=== PATIENT | male | born 1975 | race American Indian/Alaskan Native ===

== ENCOUNTER 2020-05-22 09:37 | Inpatient (IN) | payer MEDICAID, OTHER, SELFPAY ==
--- NOTE | 2020-05-22 12:41 | Emergency Department Report ---
ED General Adult HPI - General Chief complaint: Medical Clearance Stated complaint: CATHETER INFECTION Time Seen by Provider: 05/22/20 11:42 Source: patient Mode of arrival: Ambulatory Limitations: No Limitations - History of Present Illness Initial comments: 44-year-old male with a past medical history of hypertension, obesity, end-stage renal disease on dialysis Wednesday, Wednesday, Wednesday presents to the hospital concerned that his right chest wall permacath might be infected. As per medical record review permacath was inserted by vascular surgeon Dr. Moore on March 05, 2020 for new onset renal failure requiring dialysis. Two days ago patient noticed purulent drainage, from the Vas-Cath insertion site. He received dialysis at that time without difficulty and was told to keep an eye on the site and monitor for chills/fever by the dialysis nurse. Patient states he is having mild intermittent chills without fever. He noted some mild purulent drainage yesterday but today just noticed bloody drainage. Dressing was changed prior to ED arrival. Patient came here instead of going to a scheduled dialysis. He does have urine output several times a day. He denies shortness of breath or leg edema. Clinical Data Analyst: Dr. Bear. Severity scale (0 -10): 4 - Related Data Home Medications Medication Instructions Recorded Confirmed Last Taken Amlodipine Besylate/Benazepril 1 cap PO QDAY 05/01/13 03/04/20 Unknown [amLODIPine-Benazepril 2.5/10 mg] Previous Rx's Medication Instructions Recorded Last Taken Type Clotrimazole/Betamethasone Dip 1 applicatio TP BID #45 gram 03/11/20 Unknown Rx [Lotrisone Cream] Famotidine [Pepcid] 20 mg PO QDAY #30 tablet 03/11/20 Unknown Rx Valsartan [Diovan] 160 mg PO QDAY #30 tablet 03/11/20 Unknown Rx amLODIPine 10 mg PO QDAY #30 tablet 03/11/20 Unknown Rx calcitrioL [Rocaltrol] 0.5 mcg PO QDAY #30 capsule 03/11/20 Unknown Rx carvediloL [Coreg] 6.25 mg PO BID #60 tablet 03/11/20 Unknown Rx Allergies Allergy/AdvReac Type Severity Reaction Status Date / Time No Known Allergies Allergy Verified 05/22/20 10:38 ED Review of Systems ROS: Stated complaint: CATHETER INFECTION Other details as noted in HPI Comment: All other systems reviewed and negative ED Past Medical Hx - Past Medical History Hx Hypertension: Yes Hx Renal Disease: Yes - Social History Smoking Status: Never Smoker Substance Use Type: None - Medications Home Medications: Home Medications Medication Instructions Recorded Confirmed Last Taken Type Amlodipine Besylate/Benazepril 1 cap PO QDAY 05/01/13 03/04/20 Unknown History [amLODIPine-Benazepril 2.5/10 mg] Clotrimazole/Betamethasone Dip 1 applicatio TP BID #45 gram 03/11/20 Unknown Rx [Lotrisone Cream] Famotidine [Pepcid] 20 mg PO QDAY #30 tablet 03/11/20 Unknown Rx Valsartan [Diovan] 160 mg PO QDAY #30 tablet 03/11/20 Unknown Rx amLODIPine 10 mg PO QDAY #30 tablet 03/11/20 Unknown Rx calcitrioL [Rocaltrol] 0.5 mcg PO QDAY #30 capsule 03/11/20 Unknown Rx carvediloL [Coreg] 6.25 mg PO BID #60 tablet 03/11/20 Unknown Rx ED Physical Exam - General Limitations: No Limitations - Other Other exam information: General: No acute distress Head: Atraumatic Eyes: normal appearance ENT: Moist mucous membranes Neck: Normal appearance, no midline tenderness Chest: Clear to auscultation bilaterally. Right chest wall permacath with clean insertion site without purulent drainage, bloody drainage, with skin erythema or warmth. CV: Regular rate and rhythm Abdomen: Soft, normal bowel sounds, nontender, nondistended, no rebound or guarding Back: Normal inspection Extremity: Normal inspection, full range of motion Neuro: Alert O x 3, no facial asymmetry, speech clear, no gross motor sensory deficit Psych: Appropriate behavior Skin: No rash ED Course Vital Signs 05/22/20 05/22/20 10:42 12:13 Temperature 98.5 F 98.2 F Pulse Rate 82 80 Respiratory 18 18 Rate Blood Pressure 134/96 Blood Pressure 187/105 [Right] O2 Sat by Pulse 100 100 Oximetry - Reevaluation(s) Reevaluation #1: 05/22/20 14:09 Upon reexamination right permacath has mild dark bloody output. No purulent discharge. There is suture around the catheter but it is not anchored to the skin - Consultations Consultation #1: Dr Contreras was consulted and recommended vascular consult 05/22/20 15:59 Dr. Moore paged at 14:55 I reached out to Dr. Owen and 15:40. He recommends admission to the hospital for possible permacath exchange. Recommends vancomycin IV ED Medical Decision Making - Lab Data Result diagrams: 05/22/20 12:17 05/22/20 12:17 Lab Results 05/22/20 05/22/20 Range/Units 12:17 12:17 WBC 10.5 (4.5-11.0) K/mm3 RBC 3.49 L (3.65-5.03) M/mm3 Hgb 10.7 L (11.8-15.2) gm/dl Hct 32.6 L (35.5-45.6) % MCV 93 (84-94) fl MCH 31 (28-32) pg MCHC 33 (32-34) % RDW 16.2 H (13.2-15.2) % Plt Count 269 (140-440) K/mm3 Lymph % (Auto) 31.7 (13.4-35.0) % [place] % (Auto) 9.1 H (0.0-7.3) % Eos % (Auto) 2.1 (0.0-4.3) % Baso % (Auto) 0.7 (0.0-1.8) % Lymph # (Auto) 3.3 (1.2-5.4) K/mm3 [place] # (Auto) 1.0 H (0.0-0.8) K/mm3 Eos # (Auto) 0.2 (0.0-0.4) K/mm3 Baso # (Auto) 0.1 (0.0-0.1) K/mm3 Seg Neutrophils % 56.4 (40.0-70.0) % Seg Neutrophils # 5.9 (1.8-7.7) K/mm3 Sodium 142 (137-145) mmol/L Potassium 4.8 (3.6-5.0) mmol/L Chloride 102.2 (98-107) mmol/L Carbon Dioxide 21 L (22-30) mmol/L Anion Gap 24 mmol/L BUN 44 H (9-20) mg/dL Creatinine 9.5 H (0.8-1.3) mg/dL Estimated GFR 7 ml/min BUN/Creatinine Ratio 5 % Glucose 80 (75-100) mg/dL Calcium 9.2 (8.4-10.2) mg/dL - Medical Decision Making Patient will be admitted to the hospital for permacath exchange for possible infected permacath. Case discussed with vascular and nephrology. Hospitalist informed for admission. At time of ED evaluation patient stable without signs of sepsis or septic shock Critical Care Time: No Critical care attestation.: If time is entered above; I have spent that time in minutes in the direct care of this critically ill patient, excluding procedure time. ED Disposition Clinical Impression: ESRD on dialysis, Complication of vascular dialysis catheter Disposition: OP ADMIT IP TO THIS HOSP Is pt being admited?: Yes Condition: Stable Time of Disposition: 16:48 (Dr. Cadena/hospitalist)
[2020-05-22 13:07] LABS: Basophils # (Auto) 0.1 K/mm3 (0.0-0.1); Basophils % (Auto) 0.7 % (0.0-1.8); Eosinophils # (Auto) 0.2 K/mm3 (0.0-0.4); Eosinophils % (Auto) 2.1 % (0.0-4.3); Hematocrit 32.6 % (35.5-45.6); Hemoglobin 10.7 gm/dl (11.8-15.2); Lymphocytes # (Auto) 3.3 K/mm3 (1.2-5.4); Lymphocytes % (Auto) 31.7 % (13.4-35.0); Mean Corpuscular HGB Conc 33 % (32-34); Mean Corpuscular Volume 93 fl (84-94); Monocytes % (Auto) 9.1 % (0.0-7.3); Platelet Count 269 K/mm3 (140-440); Red Blood Count 3.49 M/mm3 (3.65-5.03); Red Cell Distribution Width 16.2 % (13.2-15.2)
[2020-05-22 13:29] LABS: Calcium 9.2 mg/dL (8.4-10.2)
--- NOTE | 2020-05-22 16:00 | Event Note ---
Date: 05/22/20 44 year old male with ESRD with permcath placement with report of purulent discharge from the catheter for the last 2 days. WBC at the upper limit of normal. No fevers at this time. Patient concerned. Given report of purulent drainage from the catheter, it is reasonable to perform a permcath exchange tomorrow. NPO after MN except sips of water with meds. 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 Antibiotics per ID. Recommend ID consult.
[2020-05-22] MEDS ORDERED: VANCOMYCIN 2,000 MG in SODIUM CHLORIDE 0.9% 500 ML 500 ML IV ONE ×2 (16:30→19:45)
[2020-05-22] MEDS ORDERED: ONDANSETRON 4 MG/2 ML INJ IV PRN (16:45)
--- NOTE | 2020-05-22 17:03 | History and Physical Report ---
History of Present Illness Date of admission: 05/22/20 16:45 Chief complaint: My catheter is infected History of present illness: 44 YO Male with HTN, Obesity Hypoventilation Syndrome, GERD, ESRD on HD(M,W,F) presents to ED for evaluation. Patient states that he has experienced purulent drainage from his dialysis catheter site over the past 2 days. Patient presents to ED for evaluation. Patient transported to [facility] via private vehicle for further care and evaluation. Patient seen and evaluated in the emergency department. Lab and imaging studies reviewed. Patient found to have purulent drainage from his permacath insertion site. Patient also found to have end- stage renal disease in need of dialysis. Patient treated with IV antibiotic therapy and placed in observation status and admitted to medical floor for further care and replacement of permacath. Vascular surgery consulted. Patient denies fever, chills, chest pain, palpitations, productive cough, skin rash, recent ill contacts, or known exposure to COVID-19. Prior admission on 03/05/2020 reviewed. All medication listed at time of admission has been reconciled. Past History Past Medical History: ESRD, hypertension, other (See HPI) Past Surgical History: No surgical history, Other (Reviewed) Social history: , lives with family Family history: hypertension Medications and Allergies Allergies Allergy/AdvReac Type Severity Reaction Status Date / Time No Known Allergies Allergy Verified 05/22/20 10:38 Home Medications Medication Instructions Recorded Confirmed Last Taken Type Amlodipine Besylate/Benazepril 1 cap PO QDAY 05/01/13 03/04/20 Unknown History [amLODIPine-Benazepril 2.5/10 mg] Clotrimazole/Betamethasone Dip 1 applicatio TP BID #45 gram 03/11/20 Unknown Rx [Lotrisone Cream] Famotidine [Pepcid] 20 mg PO QDAY #30 tablet 03/11/20 Unknown Rx Valsartan [Diovan] 160 mg PO QDAY #30 tablet 03/11/20 Unknown Rx amLODIPine 10 mg PO QDAY #30 tablet 03/11/20 Unknown Rx calcitrioL [Rocaltrol] 0.5 mcg PO QDAY #30 capsule 03/11/20 Unknown Rx carvediloL [Coreg] 6.25 mg PO BID #60 tablet 03/11/20 Unknown Rx Active Meds: Active Medications Acetaminophen (Tylenol) 650 mg PO Q4H PRN PRN Reason: Pain MILD(1-3)/Fever >100.5/VARGHESE Amlodipine Besylate (Amlodipine) 10 mg PO QDAY [facility] Calcitriol (Rocaltrol) 0.5 mcg PO QDAY [facility] Carvedilol (Coreg) 6.25 mg PO BID [facility] Clotrimazole (Clotrimazole/Betamethasone) 1 applic TP BID [facility] Famotidine (Pepcid) 20 mg PO QDAY [facility] Vancomycin HCl 2,000 mg/ (Sodium Chloride) 540 mls @ 333 mls/hr IV ONCE ONE; Protocol Stop: 05/22/20 18:07 Miscellaneous Medication (Amlodipine Besylate/Benazepril [Amlodipine-Benazepril 2.5/10 Mg]) 1 cap PO QDAY [facility] Ondansetron HCl (Zofran) 4 mg IV Q8H PRN PRN Reason: Nausea And Vomiting Sodium Chloride (Sodium Chloride Flush Syringe 10 Ml) 10 ml IV BID [facility] Sodium Chloride (Sodium Chloride Flush Syringe 10 Ml) 10 ml IV PRN PRN PRN Reason: LINE FLUSH Valsartan (Diovan) 160 mg PO QDAY [facility] Review of Systems Constitutional: no weight loss, no weight gain, no fever, no chills Ears, nose, mouth and throat: no decreased hearing, no nasal congestion Cardiovascular: no chest pain, no orthopnea, no rapid/irregular heart beat, no edema Respiratory: no cough, no cough with sputum, no excessive sputum, no hemoptysis, no shortness of breath Gastrointestinal: no abdominal pain, no nausea, no diarrhea, no constipation, no change in bowel habits Genitourinary Male: no hematuria, no flank pain, no urinary frequency, no urinary hesitancy Rectal: no pain, no incontinence Musculoskeletal: no neck stiffness, no shooting arm pain, no arm numbness/tingli ng, no low back pain, no leg numbness/tingling Integumentary: no rash, no pruritis, no redness, no sores, no wounds, no jaundice Neurological: no head injury, no paralysis, no parathesias, no numbness, no tingling, no lack of coordination, no migraines, no change in mentation, no changes in smell/taste Psychiatric: no memory loss, no sleep disturbances, no paranoia, no anhedonia Endocrine: no heat intolerance, no excessive thirst, no nocturia, no excessive sweating, no weight change Hematologic/Lymphatic: no easy bruising, no easy bleeding, no lymphadenopathy Allergic/Immunologic: no allergic rhinitis, no wheezing, no persistent infections, no anaphylaxis Exam - Constitutional Vitals: Temp Pulse Resp BP Pulse Ox 98.2 F 80 18 134/96 100 05/22/20 12:13 05/22/20 12:13 05/22/20 12:13 05/22/20 12:13 05/22/20 12:13 General appearance: Present: mild distress - EENT Eyes: Present: PERRL ENT: hearing intact, clear oral mucosa - Neck Neck: Present: supple, normal ROM - Respiratory Respiratory effort: normal Respiratory: bilateral: CTA - Cardiovascular Heart Sounds: Present: S1 & S2. Absent: rub, click - Extremities Extremities: pulses symmetrical, No edema Peripheral Pulses: within normal limits - Abdominal General gastrointestinal: Present: soft, non-tender, non-distended, normal bowel sounds Male genitourinary: Present: normal - Integumentary Integumentary: Present: clear, warm, dry, erythema (Erythema and purulent drainage to permacath insertion site. No fluctuance no masses.) - Musculoskeletal Musculoskeletal: gait normal, strength equal bilaterally - Psychiatric Psychiatric: appropriate mood/affect, intact judgment & insight - Neurologic Neurologic: CNII-XII intact, moves all extremities Results - Labs CBC & Chem 7: 05/22/20 12:17 05/22/20 12:17 Labs: Abnormal lab results 05/22/20 05/22/20 Range/Units 12:17 12:17 RBC 3.49 L (3.65-5.03) M/mm3 Hgb 10.7 L (11.8-15.2) gm/dl Hct 32.6 L (35.5-45.6) % RDW 16.2 H (13.2-15.2) % [place] % (Auto) 9.1 H (0.0-7.3) % [place] # (Auto) 1.0 H (0.0-0.8) K/mm3 Carbon Dioxide 21 L (22-30) mmol/L BUN 44 H (9-20) mg/dL Creatinine 9.5 H (0.8-1.3) mg/dL Assessment and Plan - Patient Problems (1) Hemodialysis catheter infection Current Visit: Yes Status: Acute Qualifiers: Encounter type: initial encounter Qualified Code(s): T82.7XXA - Infection and inflammatory reaction due to other cardiac and vascular devices, implants and grafts, initial encounter Plan to address problem: IV antibiotic therapy, CBC, CMP, vascular surgery consulted, n.p.o. after midnight, vascular surgery pending replacement of catheter in a.m. (2) ESRD on dialysis Current Visit: Yes Status: Acute Plan to address problem: Nephrology team consulted in ED, dialysis as per renal team, strict I's/O, avoid nephrotoxic agents. (3) Hypertension Current Visit: Yes Status: Acute Qualifiers: Hypertension type: essential hypertension Qualified Code(s): I10 - Essential (primary) hypertension Plan to address problem: Monitor blood pressure every shift, continue medical management. (4) Obesity hypoventilation syndrome Current Visit: Yes Status: Acute Plan to address problem: Pulse oximetry, balanced diet, increase physical activity at discharge. Outpatient pulmonary follow-up for sleep study. (5) DVT prophylaxis Current Visit: Yes Status: Acute Plan to address problem: SCD to bilateral lower extremities while in bed, patient is ambulatory
[2020-05-22] MEDS: carvediloL 6.25 MG TAB PO SCH (21:07)
[2020-05-22 21:14] LABS: Hepatitis C Virus Antibody Non-Reactive (NonReactive)
[2020-05-22 21:57] LABS: Hepatitis B Surface Antigen Non-Reactive (Negative)
[2020-05-23] MEDS: CLOTRIMAZOLE/BETAMETHASONE CREAM 15 GM TP SCH (00:28)
[2020-05-23] MEDS ORDERED: SODIUM CHLORIDE 0.9% 500 ML 500 ML ONE (07:34)
[2020-05-23] MEDS ORDERED: SODIUM CHLORIDE 0.9% 100 ML IV PRN (08:18)
--- NOTE | 2020-05-23 08:18 | Consultation ---
History of Present Illness - History of Present Illness Thank you for the consultation, time of evaluation 9:15 in the morning My assessment and plan are as follows #End-stage renal disease: Patient is currently on maintenance hemodialysis will order for hemodialysis today and follow, discussed with dialysis facility patient has not been taking good care of his access and also also noted to be taking shower, Which she has been educated not to do so #Blood pressure and volume: To monitor and follow 1000 cc fluid restriction per day goal systolic blood pressure 140 or less #Anemia in end-stage renal disease to monitor hemoglobin and hematocrit periodically erythropoietin as needed, further workup may be required depending on the hemoglobin #Bone mineral disorder and secondary hyperparathyroidism: Monitor phosphorus and PTH level periodically #Dialysis Access: is noted to have some drainage currently afebrile discussed with Dr. Celeste catheter is being exchanged #Diet and nutrition: Patient advised to maintain 1200 cc fluid restriction needs to be on protein: 1.5 g/kg body weight daily, supplement should be considered #compliance is poor patient needs to comply with treatment recommendation will need avoid taking shower with a catheter on More than 35 minutes were spent in direct patient care today at the bedside, If you have any further question in regards to this patient care please feel free to contact us at [phone] Author: Michael Contreras M.D. [facility], [address] [place] [address] Tel; [phone] Source of information: From current chart as I came to examine the patient but he had gone down for catheter exchange History of present illness patient is a 44-year-old -[place] male who has been admitted here with complaints of drainage from the access site according to my nurse practitioner and dialysis facility patient has been noted to have drainage from the catheter site,. He denies having any fever or chills however it has been noted at the dialysis facility that he comes taking the shower and his catheter site has been fairly poorly kept according to my nurse practitioner Mayi Hilliard, who confirmed this with the dialysis facility Patient came being concerned that his catheter might have been infected, this was placed by Dr. Milind Moore on February 2020 patient has had complaints of drainage from the catheter site approximately 2 days ago him to ER, records were reviewed, discussed with Dr. Ramsey Celeste he will be going for catheter exchange today Discussed with Dr. Roula about following him up on permanent access situation Past medical history: ESRD Bone mineral disorder Secondary hyperparathyroidism Current allergies: Reviewed from the current chart Social history: Reviewed from the current chart Family history: Reviewed from the current chart Review of system: Positive for reported to have drainage from the catheter site For dialysis facility he has been coming to the facility taking showers even though he is aware that he should not make the catheter site wet All other review of systems negative Physical examination Vitals: Reviewed narrative exam reviewed from the hospital medicine service was not able to examine the patient as he was down for procedure Labs and x-rays: Reviewed from this admission Past History Past Medical History: ESRD, hypertension, other (See HPI) Past Surgical History: No surgical history, Other (Reviewed) Social history: , lives with family Family history: hypertension Medications and Allergies Allergies Allergy/AdvReac Type Severity Reaction Status Date / Time No Known Allergies Allergy Verified 05/22/20 10:38 Home Medications Medication Instructions Recorded Confirmed Last Taken Type Amlodipine Besylate/Benazepril 1 cap PO QDAY 05/01/13 03/04/20 Unknown History [amLODIPine-Benazepril 2.5/10 mg] Clotrimazole/Betamethasone Dip 1 applicatio TP BID #45 gram 03/11/20 Unknown Rx [Lotrisone Cream] Famotidine [Pepcid] 20 mg PO QDAY #30 tablet 03/11/20 Unknown Rx Valsartan [Diovan] 160 mg PO QDAY #30 tablet 03/11/20 Unknown Rx amLODIPine 10 mg PO QDAY #30 tablet 03/11/20 Unknown Rx calcitrioL [Rocaltrol] 0.5 mcg PO QDAY #30 capsule 03/11/20 Unknown Rx carvediloL [Coreg] 6.25 mg PO BID #60 tablet 03/11/20 Unknown Rx Active Meds: Active Medications Acetaminophen (Tylenol) 650 mg PO Q4H PRN PRN Reason: Pain MILD(1-3)/Fever >100.5/VARGHESE Amlodipine Besylate (Amlodipine) 10 mg PO QDAY [facility] Calcitriol (Rocaltrol) 0.5 mcg PO QDAY [facility] Carvedilol (Coreg) 6.25 mg PO BID [facility] Last Admin: 05/22/20 21:07 Dose: 6.25 mg Documented by: Clotrimazole (Clotrimazole/Betamethasone) 1 applic TP BID [facility] Last Admin: 05/23/20 00:28 Dose: 1 applic Documented by: Famotidine (Pepcid) 20 mg PO QDAY [facility] Cefepime HCl (Cefepime/Ns 2 Gm/100 Ml) 2 gm in 100 mls @ 200 mls/hr IV ONCE ONE; Protocol Stop: 05/23/20 08:59 Miscellaneous Medication (Amlodipine Besylate/Benazepril [Amlodipine-Benazepril 2.5/10 Mg]) 1 cap PO QDAY [facility] Ondansetron HCl (Zofran) 4 mg IV Q8H PRN PRN Reason: Nausea And Vomiting Sodium Chloride (Sodium Chloride Flush Syringe 10 Ml) 10 ml IV BID [facility] Last Admin: 05/22/20 21:08 Dose: 10 ml Documented by: Sodium Chloride (Sodium Chloride Flush Syringe 10 Ml) 10 ml IV PRN PRN PRN Reason: LINE FLUSH Valsartan (Diovan) 160 mg PO QDAY [facility] Exam - Vital Signs Vital signs: Vital Signs Temp Pulse Resp BP Pulse Ox 98.5 F 82 18 187/105 100 05/22/20 10:42 05/22/20 10:42 05/22/20 10:42 05/22/20 10:42 05/22/20 10:42 Results - Lab Results 05/22/20 12:17 05/22/20 12:17 Most recent lab results Calcium 9.2 mg/dL (8.4-10.2) 05/22/20 12:17
[2020-05-23] MEDS ORDERED: MIDAZOLAM 2 MG/2 ML INJ ONE (08:53)
[2020-05-23] MEDS ORDERED: fentaNYL 100 MCG/2 ML INJ ONE (08:53)
[2020-05-23] MEDS ORDERED: HEPARIN/NS 5000 UNIT/500ML 500 ML IR ONE (08:54)
[2020-05-23] MEDS ORDERED: LIDOCAINE 1%/EPINEPHRINE 1:100,000 VIAL (20 ML) INFILTRATI ONE (08:54)
[2020-05-23] MEDS ORDERED: VANCOMYCIN PHARMACY TO DOSE IV SCH (09:00)
--- NOTE | 2020-05-23 09:27 | Progress Note ---
Assessment and Plan Assessment and plan: -- HD catheter infection; Purulent discharge from the catheter site Permacath exchange per Vascular Tip of the catheter cultures, blood cultures Empiric antibiotics, Vanco 1 dose given in ER We will give 1 dose cefepime ID consult --End-stage renal disease on hemodialysis; Patient will have exchange of HD catheter today per IR HD per schedule, nephrology following --Hypertension; moderate control Continue home antihypertensives Coreg, amlodipine, Diovan, benazepril As needed labetalol --Obesity; BMI 38.7 Advised lifestyle changes Dietary modification, exercise as tolerated and weight reduction when medically stable --Possible LARISSA; Patient needs outpatient sleep study And possible CPAP BiPAP if needed --DVT prophylaxis; Heparin renal dose --Full CODE STATUS We will closely monitor the patient and adjust the management as needed Plan of care reviewed with the patient and his nurse History Interval history: I have seen and examined the patient in dialysis unit while receiving dialysis. Patient was having abdominal cramps, restless and in mild distress Dialysis nurse checked with phlebotomist prn and discontinued Patient complains of abdominal and back muscle cramps Alert awake oriented Vital signs reviewed Hospitalist Physical - Constitutional Vitals: Temp Pulse Resp BP Pulse Ox 97.2 F L 75 20 140/94 88 05/23/20 04:06 05/23/20 04:08 05/23/20 05:09 05/23/20 04:06 05/23/20 04:08 General appearance: Present: mild distress, well-nourished, obese (Morbid obesity) - EENT Eyes: Present: PERRL, EOM intact - Neck Neck: Present: supple, normal ROM - Respiratory Respiratory effort: normal Respiratory: bilateral: diminished, rales, negative: rhonchi, wheezing - Cardiovascular Rhythm: regular Heart Sounds: Present: S1 & S2 - Extremities Extremities: no ischemia, No edema - Abdominal General gastrointestinal: soft, non-tender, non-distended, normal bowel sounds - Integumentary Integumentary: Present: clear, warm - Psychiatric Psychiatric: appropriate mood/affect, cooperative - Neurologic Neurologic: CNII-XII intact, moves all extremities Results - Labs CBC & Chem 7: 05/22/20 12:17 05/22/20 12:17 Labs: Laboratory Last Values WBC 10.5 K/mm3 (4.5-11.0) 05/22/20 12:17 RBC 3.49 M/mm3 (3.65-5.03) L 05/22/20 12:17 Hgb 10.7 gm/dl (11.8-15.2) L 05/22/20 12:17 Hct 32.6 % (35.5-45.6) L 05/22/20 12:17 MCV 93 fl (84-94) 05/22/20 12:17 MCH 31 pg (28-32) 05/22/20 12:17 MCHC 33 % (32-34) 05/22/20 12:17 RDW 16.2 % (13.2-15.2) H 05/22/20 12:17 Plt Count 269 K/mm3 (140-440) 05/22/20 12:17 Lymph % (Auto) 31.7 % (13.4-35.0) 05/22/20 12:17 [place] % (Auto) 9.1 % (0.0-7.3) H 05/22/20 12:17 Eos % (Auto) 2.1 % (0.0-4.3) 05/22/20 12:17 Baso % (Auto) 0.7 % (0.0-1.8) 05/22/20 12:17 Lymph # (Auto) 3.3 K/mm3 (1.2-5.4) 05/22/20 12:17 [place] # (Auto) 1.0 K/mm3 (0.0-0.8) H 05/22/20 12:17 Eos # (Auto) 0.2 K/mm3 (0.0-0.4) 05/22/20 12:17 Baso # (Auto) 0.1 K/mm3 (0.0-0.1) 05/22/20 12:17 Seg Neutrophils % 56.4 % (40.0-70.0) 05/22/20 12:17 Seg Neutrophils # 5.9 K/mm3 (1.8-7.7) 05/22/20 12:17 Sodium 142 mmol/L (137-145) 05/22/20 12:17 Potassium 4.8 mmol/L (3.6-5.0) 05/22/20 12:17 Chloride 102.2 mmol/L (98-107) 05/22/20 12:17 Carbon Dioxide 21 mmol/L (22-30) L 05/22/20 12:17 Anion Gap 24 mmol/L 05/22/20 12:17 BUN 44 mg/dL (9-20) H 05/22/20 12:17 Creatinine 9.5 mg/dL (0.8-1.3) H 05/22/20 12:17 Estimated GFR 7 ml/min 05/22/20 12:17 BUN/Creatinine Ratio 5 % 05/22/20 12:17 Glucose 80 mg/dL (75-100) 05/22/20 12:17 Calcium 9.2 mg/dL (8.4-10.2) 05/22/20 12:17 Hepatitis A IgM Ab Non-reactive (NonReactive) 05/22/20 20:35 Hep Bs Antigen Non-reactive (Negative) 05/22/20 20:35 Hep B Core IgM Ab Non-reactive (NonReactive) 05/22/20 20:35 Hepatitis C Antibody Non-reactive (NonReactive) 05/22/20 20:35 Microbiology: Microbiology 05/22/20 12:17 Peripheral/Venous Blood Culture - Preliminary Culture in Progress 05/22/20 12:17 Peripheral/Venous Blood Culture - Preliminary Culture in Progress [place]/IV: Voiding Method Toilet IV Catheter Type [Right Hand] Peripheral IV IV Catheter Type [Right Peripheral IV Subclavian] Active Medications - Current Medications Current Medications: Generic Name Dose Route Start Last Admin Trade Name Freq PRN Reason Stop Dose Admin Acetaminophen 650 mg 05/22/20 16:45 Tylenol PO Q4H PRN Pain MILD(1-3)/Fever >100.5/VARGHESE Amlodipine Besylate 10 mg 05/23/20 10:00 Amlodipine PO QDAY [facility] Calcitriol 0.5 mcg 05/23/20 10:00 Rocaltrol PO QDAY CORINNE Carvedilol 6.25 mg 05/22/20 22:00 05/22/20 21:07 Coreg PO 6.25 mg BID CORINNE Administration Clotrimazole 1 applic 05/22/20 22:00 05/23/20 00:28 Clotrimazole/Betamethasone TP 1 applic BID CORINNE Administration Famotidine 20 mg 05/23/20 10:00 Pepcid PO QDAY [facility] Cefepime HCl 2 gm in 100 mls @ 200 mls/hr 05/23/20 10:00 Cefepime/Ns 2 Gm/100 Ml IV 05/23/20 13:00 ONCE NR Protocol Sodium Chloride 100 mls @ 999 mls/hr 05/23/20 08:18 Nacl 0.9% IV MIKO PRN Hypotension Ondansetron HCl 4 mg 05/22/20 16:45 Zofran IV Q8H PRN Nausea And Vomiting Sodium Chloride 10 ml 05/22/20 22:00 05/22/20 21:08 Sodium Chloride Flush Syringe 10 Ml IV 10 ml BID CORINNE Administration Sodium Chloride 10 ml 05/22/20 16:45 Sodium Chloride Flush Syringe 10 Ml IV PRN PRN LINE FLUSH Valsartan 160 mg 05/23/20 10:00 Diovan PO QDAY CORINNE
[2020-05-23] MEDS: HEPARIN 10,000 UNITS/10 ML VIAL ONE ×2 (09:32→09:33)
--- NOTE | 2020-05-23 09:40 | Operative Report ---
Operative Report Operative Report: Exam: Fluoroscopic exchange of tunneled hemodialysis catheter Clinical indication: Patient with a history of bacteremia, no catheter tract infection Date: 05/23/2020 Procedure: Following an explanation of the risks, benefits and alternatives; written informed consent was obtained. The patient was brought to the angiographic suite and placed in supine position on the examination table. Initial ultrasound images of the chest were obtained and the catheter is in appropriate positioning. There is no erythema or exudates along the catheter tract. No tenderness to palpation. The patient's right chest wall and catheter were prepped and draped in the usual sterile fashion. 1% lidocaine was used for anesthesia at the catheter exit site and along the tunnel tract. The catheter cuff was freed using a combination of sharp and blunt dissection. A 0.035 Glidewire was advanced through the venous port, a 0.035 Glidewire was advanced through the arterial port. The guidewires were advanced into the IVC for anchoring. The catheter was then removed intact. A new Bard 23 cm glidepath tunneled hemodialysis catheter was then tunneled antegrade over the guidewires to position the tip in the proximal right atrium. The guidewires were removed. Both ports flushed and aspirated easily and were then locked with appropriate volumes of heparin. The catheter exit site was approximated using 3-0 Vicryl suture to lock the cuff in. Sterile dressing was applied. The patient tolerated the procedure well. There were no immediate postprocedure complications. Conscious sedation was performed under the guidance of radiologic nursing. Continuous cardiopulmonary monitoring was utilized. Impression: Fluoroscopic guided exchange of right chest wall tunneled hemodialysis catheter
--- NOTE | 2020-05-23 09:59 | Consultation ---
History of Present Illness - Reason for Consult Consult date: 05/23/20 Malfunctioning dialysis access - History of Present Illness Patient with a history of end-stage renal disease on hemodialysis through a right chest wall tunneled hemodialysis catheter. The patient presented with bacteremia however no catheter tract infection. Of note, the patient has no bandages on his catheter on presentation which may be the result of the patient taking showers at home as opposed to sponge baths. He currently has no surgical access. Past History Past Medical History: ESRD, hypertension, other (See HPI) Past Surgical History: No surgical history, Other (Reviewed) Social history: , lives with family Family history: hypertension Medications and Allergies Allergies Allergy/AdvReac Type Severity Reaction Status Date / Time No Known Allergies Allergy Verified 05/22/20 10:38 Home Medications Medication Instructions Recorded Confirmed Last Taken Type Amlodipine Besylate/Benazepril 1 cap PO QDAY 05/01/13 03/04/20 Unknown History [amLODIPine-Benazepril 2.5/10 mg] Clotrimazole/Betamethasone Dip 1 applicatio TP BID #45 gram 03/11/20 Unknown Rx [Lotrisone Cream] Famotidine [Pepcid] 20 mg PO QDAY #30 tablet 03/11/20 Unknown Rx Valsartan [Diovan] 160 mg PO QDAY #30 tablet 03/11/20 Unknown Rx amLODIPine 10 mg PO QDAY #30 tablet 03/11/20 Unknown Rx calcitrioL [Rocaltrol] 0.5 mcg PO QDAY #30 capsule 03/11/20 Unknown Rx carvediloL [Coreg] 6.25 mg PO BID #60 tablet 03/11/20 Unknown Rx Active Meds: Active Medications Acetaminophen (Tylenol) 650 mg PO Q4H PRN PRN Reason: Pain MILD(1-3)/Fever >100.5/VARGHESE Amlodipine Besylate (Amlodipine) 10 mg PO QDAY [facility] Calcitriol (Rocaltrol) 0.5 mcg PO QDAY [facility] Carvedilol (Coreg) 6.25 mg PO BID [facility] Last Admin: 05/22/20 21:07 Dose: 6.25 mg Documented by: Clotrimazole (Clotrimazole/Betamethasone) 1 applic TP BID [facility] Last Admin: 05/23/20 00:28 Dose: 1 applic Documented by: Famotidine (Pepcid) 20 mg PO QDAY [facility] Cefepime HCl (Cefepime/Ns 2 Gm/100 Ml) 2 gm in 100 mls @ 200 mls/hr IV ONCE NR; Protocol Stop: 05/23/20 13:00 Sodium Chloride (Nacl 0.9%) 100 mls @ 999 mls/hr IV MIKO PRN PRN Reason: Hypotension Ondansetron HCl (Zofran) 4 mg IV Q8H PRN PRN Reason: Nausea And Vomiting Sodium Chloride (Sodium Chloride Flush Syringe 10 Ml) 10 ml IV BID [facility] Last Admin: 05/22/20 21:08 Dose: 10 ml Documented by: Sodium Chloride (Sodium Chloride Flush Syringe 10 Ml) 10 ml IV PRN PRN PRN Reason: LINE FLUSH Valsartan (Diovan) 160 mg PO QDAY [facility] Review of Systems All systems: negative Exam - Constitutional Vitals: Temp Pulse Resp BP Pulse Ox 97.2 F L 75 20 140/94 88 05/23/20 04:06 05/23/20 04:08 05/23/20 05:09 05/23/20 04:06 05/23/20 04:08 General appearance: Present: no acute distress - EENT Eyes: Present: EOM intact ENT: hearing intact - Neck Neck: Present: supple, normal ROM - Respiratory Respiratory effort: normal - Extremities Extremities: Full ROM - Abdominal General gastrointestinal: Present: deferred Male genitourinary: Present: deferred - Rectal Rectal Exam: deferred - Psychiatric Psychiatric: appropriate mood/affect, cooperative Results - Labs CBC & Chem 7: 05/22/20 12:17 05/22/20 12:17 Labs: Abnormal lab results 05/22/20 05/22/20 Range/Units 12:17 12:17 RBC 3.49 L (3.65-5.03) M/mm3 Hgb 10.7 L (11.8-15.2) gm/dl Hct 32.6 L (35.5-45.6) % RDW 16.2 H (13.2-15.2) % [place] % (Auto) 9.1 H (0.0-7.3) % [place] # (Auto) 1.0 H (0.0-0.8) K/mm3 Carbon Dioxide 21 L (22-30) mmol/L BUN 44 H (9-20) mg/dL Creatinine 9.5 H (0.8-1.3) mg/dL Assessment and Plan Patient underwent tunneled hemodialysis catheter exchange this morning. Ultimately, the patient will require long-term access. He will be scheduled for a vein mapping to determine an appropriate access. This access may be performed as an outpatient if the patient is otherwise ready for discharge.
[2020-05-23] MEDS ORDERED: BENAZEPRIL PO SCH (10:00)
[2020-05-23] MEDS ORDERED: AMLODIPINE BESYLATE PO SCH (10:00)
[2020-05-23] MEDS ORDERED: CEFEPIME/NS 2 GM/100 ML 2 GM/100 ML BAG IV NR (10:00)
[2020-05-23] MEDS ORDERED: [UNRECOGNIZED DRUG - OTHER] PO SCH (10:00)
[2020-05-23] MEDS: FAMOTIDINE 10 MG TAB PO SCH (14:06)
[2020-05-23] MEDS: CALCITRIOL 0.5 MCG CAP PO SCH (14:07)
[2020-05-23] MEDS: VALSARTAN 160MG TAB PO SCH (14:07)
[2020-05-23] MEDS: carvediloL 6.25 MG TAB PO SCH ×2 (14:07→21:22)
[2020-05-23] MEDS: amLODIPine 5 MG TAB PO SCH (14:08)
[2020-05-23] MEDS: ACETAMINOPHEN 325 MG TAB PO PRN (21:26)
--- NOTE | 2020-05-24 08:33 | Progress Note ---
Subjective Interval history: Patient was seen today for follow-up of multiple renal related issues No complaints of any chest pain pressure or shortness of breath he did cut off his dialysis treatment yesterday Interdisciplinary notes that also reviewed Events of 24 hours vitals labs intake output medications were reviewed Past medical history: Reviewed Family history: Reviewed Social history: Reviewed Allergies: Reviewed Physical examination: Vitals: Reviewed HEENT: No pallor or icterus oral mucosa moist Neck: Supple no JVD no thyromegaly Chest: Bilateral clear to auscultation anteriorly catheter site appears to be clear Heart: Regular rate and rhythm S1-S2 heard no S3-S4 Abdomen: Soft nontender no voluntary guarding rigidity rebound Extremity: Dry skin less than 1+ peripheral edema Psychiatric: No evidence of agitation and aggression noted Dermatology: No petechial rashes Labs and x-rays: Reviewed from today Assessment and plan End-stage renal disease: Patient was advised to comply with treatment recommendation he did cut off his dialysis treatment he was encouraged not to do so Will order pre-hemodialysis treatment tomorrow for 4 hours ultrafiltration between 1 and 2 kg patient told me that yes he will dialyze tomorrow for 4 hours, Infected permacath, currently being followed by infectious disease, catheter has been exchanged already Anemia and end-stage renal disease: To monitor and follow Bone mineral resultant secondary hyperparathyroidism to monitor and follow Patient noted to be noncompliant, has been taking a shower even though he has been told not to do so does take off the dressing from his catheter site We may consider a hypoallergenic dressing in the outpatient setting the plan was also discussed with infectious disease physician I believe the patient's prognosis is going to be guarded possibly very poor, his mortality risk is going to be high if he is going to be noncompliant on dialysis with catheter and not following his advice I had a [id number] discussion with patient had an eye level for approximately 20 minutes I did educate him everything about ESRD, catheter care, need for fistula etc. also discussed about diet lifestyle changes sign and symptoms of bacteremia infection and sepsis Also given him my website and National kidney foundation website to educate himself about ESRD and related comorbidities We'll continue to follow and make recommendation for renal standpoint Objective - Vital Signs Vital signs: Vital Signs - 12hr 05/23/20 05/24/20 05/24/20 21:22 02:14 07:01 Temperature 97.9 F 98.7 F Pulse Rate 86 78 76 Respiratory 20 18 Rate Blood Pressure 111/72 143/87 130/88 O2 Sat by Pulse 99 100 Oximetry - Lab 05/25/20 08:27 05/25/20 08:27 Most recent lab results Calcium 9.2 mg/dL (8.4-10.2) 05/22/20 12:17 Medications & Allergies - Medications Allergies/Adverse Reactions: Allergies No Known Allergies Allergy (Verified 05/22/20 10:38) Home Medications: Home Medications Medication Instructions Recorded Confirmed Last Taken Type Amlodipine Besylate/Benazepril 1 cap PO QDAY 05/01/13 03/04/20 Unknown History [amLODIPine-Benazepril 2.5/10 mg] Clotrimazole/Betamethasone Dip 1 applicatio TP BID #45 gram 03/11/20 Unknown Rx [Lotrisone Cream] amLODIPine 10 mg PO QDAY #30 tablet 03/11/20 Unknown Rx calcitrioL [Rocaltrol] 0.5 mcg PO QDAY #30 capsule 03/11/20 Unknown Rx carvediloL [Coreg] 6.25 mg PO BID #60 tablet 03/11/20 Unknown Rx Active Medications: Generic Name Dose Route Start Last Admin Trade Name Freq PRN Reason Stop Dose Admin Acetaminophen 650 mg 05/22/20 16:45 05/23/20 21:26 Tylenol PO 650 mg Q4H PRN Administration Pain MILD(1-3)/Fever >100.5/VARGHESE Amlodipine Besylate 10 mg 05/23/20 10:00 05/23/20 14:08 Amlodipine PO 10 mg QDAY CORINNE Administration Calcitriol 0.5 mcg 05/23/20 10:00 05/23/20 14:07 Rocaltrol PO 0.5 mcg QDAY CORINNE Administration Carvedilol 6.25 mg 05/22/20 22:00 05/23/20 21:22 Coreg PO 6.25 mg BID CORINNE Administration Clotrimazole 1 applic 05/22/20 22:00 05/23/20 00:28 Clotrimazole/Betamethasone TP 1 applic BID CORINNE Administration Famotidine 20 mg 05/23/20 10:00 05/23/20 14:06 Pepcid PO 20 mg QDAY CORINNE Administration Sodium Chloride 100 mls @ 999 mls/hr 05/23/20 08:18 Nacl 0.9% IV MIKO PRN Hypotension Ondansetron HCl 4 mg 05/22/20 16:45 Zofran IV Q8H PRN Nausea And Vomiting Sodium Chloride 10 ml 05/22/20 22:00 05/23/20 21:28 Sodium Chloride Flush Syringe 10 Ml IV 10 ml BID CORINNE Administration Sodium Chloride 10 ml 05/22/20 16:45 Sodium Chloride Flush Syringe 10 Ml IV PRN PRN LINE FLUSH Valsartan 160 mg 05/23/20 10:00 05/23/20 14:07 Diovan PO 160 mg QDAY CORINNE Administration
--- NOTE | 2020-05-24 09:05 | Progress Note ---
Assessment and Plan Assessment and plan: -- HD catheter infection; Purulent discharge from the catheter site Tip of the catheter cultures, blood cultures ID consulted --End-stage renal disease on hemodialysis; Patient had exchange of HD catheter on 05/23/2020 per IR HD per schedule, nephrology following --Hypertension; moderate control Continue home antihypertensives Coreg, amlodipine, Diovan, benazepril As needed labetalol --Obesity; BMI 38.7 Advised lifestyle changes Dietary modification, exercise as tolerated and weight reduction when medically stable --Possible LARISSA; Patient needs outpatient sleep study And possible CPAP BiPAP if needed --DVT prophylaxis; Heparin renal dose --Full CODE STATUS 05/24/2020. Continue current antibiotics and await ID consultation. Blood cultures x24 hours negative. History Interval history: No new issues overnight. Hospitalist Physical - Constitutional Vitals: Temp Pulse Resp BP Pulse Ox 98.7 F 76 18 130/88 100 05/24/20 07:01 05/24/20 07:01 05/24/20 07:01 05/24/20 07:01 05/24/20 07:01 General appearance: Present: mild distress, well-nourished, obese (Morbid obesity) - EENT Eyes: Present: PERRL, EOM intact ENT: hearing intact, clear oral mucosa, dentition normal - Neck Neck: Present: supple, normal ROM - Respiratory Respiratory effort: normal Respiratory: bilateral: CTA - Cardiovascular Rhythm: regular Heart Sounds: Present: S1 & S2. Absent: gallop, rub - Extremities Extremities: no ischemia, No edema, Full ROM - Abdominal General gastrointestinal: soft, non-tender, non-distended, normal bowel sounds - Integumentary Integumentary: Present: clear, warm, dry - Neurologic Neurologic: CNII-XII intact, moves all extremities Results - Labs CBC & Chem 7: 05/22/20 12:17 05/22/20 12:17 Labs: Laboratory Last Values WBC 10.5 K/mm3 (4.5-11.0) 05/22/20 12:17 RBC 3.49 M/mm3 (3.65-5.03) L 05/22/20 12:17 Hgb 10.7 gm/dl (11.8-15.2) L 05/22/20 12: Hct 32.6 % (35.5-45.6) L 05/22/20 12:17 MCV 93 fl (84-94) 05/22/20 12:17 MCH 31 pg (28-32) 05/22/20 12:17 MCHC 33 % (32-34) 05/22/20 12:17 RDW 16.2 % (13.2-15.2) H 05/22/20 12:17 Plt Count 269 K/mm3 (140-440) 05/22/20 12:17 Lymph % (Auto) 31.7 % (13.4-35.0) 05/22/20 12:17 [place] % (Auto) 9.1 % (0.0-7.3) H 05/22/20 12:17 Eos % (Auto) 2.1 % (0.0-4.3) 05/22/20 12:17 Baso % (Auto) 0.7 % (0.0-1.8) 05/22/20 12:17 Lymph # (Auto) 3.3 K/mm3 (1.2-5.4) 05/22/20 12:17 [place] # (Auto) 1.0 K/mm3 (0.0-0.8) H 05/22/20 12:17 Eos # (Auto) 0.2 K/mm3 (0.0-0.4) 05/22/20 12:17 Baso # (Auto) 0.1 K/mm3 (0.0-0.1) 05/22/20 12:17 Seg Neutrophils % 56.4 % (40.0-70.0) 05/22/20 12:17 Seg Neutrophils # 5.9 K/mm3 (1.8-7.7) 05/22/20 12:17 Sodium 142 mmol/L (137-145) 05/22/20 12:17 Potassium 4.8 mmol/L (3.6-5.0) 05/22/20 12:17 Chloride 102.2 mmol/L (98-107) 05/22/20 12:17 Carbon Dioxide 21 mmol/L (22-30) L 05/22/20 12:17 Anion Gap 24 mmol/L 05/22/20 12:17 BUN 44 mg/dL (9-20) H 05/22/20 12:17 Creatinine 9.5 mg/dL (0.8-1.3) H 05/22/20 12:17 Estimated GFR 7 ml/min 05/22/20 12:17 BUN/Creatinine Ratio 5 % 05/22/20 12:17 Glucose 80 mg/dL (75-100) 05/22/20 12:17 Calcium 9.2 mg/dL (8.4-10.2) 05/22/20 12:17 Random Vancomycin 20 ug/mL (0-40.0) 05/24/20 05:57 Hepatitis A IgM Ab Non-reactive (NonReactive) 05/22/20 20:35 Hep Bs Antigen Non-reactive (Negative) 05/22/20 20:35 Hep B Core IgM Ab Non-reactive (NonReactive) 05/22/20 20:35 Hepatitis C Antibody Non-reactive (NonReactive) 05/22/20 20:35 Microbiology: Microbiology 05/22/20 12:17 Peripheral/Venous Blood Culture - Preliminary NO GROWTH AFTER 24 HOURS 05/22/20 12:17 Peripheral/Venous Blood Culture - Preliminary NO GROWTH AFTER 24 HOURS [place]/IV: Voiding Method Toilet IV Catheter Type [Right Hand] Peripheral IV IV Catheter Type [Right Peripheral IV Subclavian] Active Medications - Current Medications Current Medications: Generic Name Dose Route Start Last Admin Trade Name Freq PRN Reason Stop Dose Admin Acetaminophen 650 mg 05/22/20 16:45 05/23/20 21:26 Tylenol PO 650 mg Q4H PRN Administration Pain MILD(1-3)/Fever >100.5/VARGHESE Amlodipine Besylate 10 mg 05/23/20 10:00 05/23/20 14:08 Amlodipine PO 10 mg QDAY CORINNE Administration Calcitriol 0.5 mcg 05/23/20 10:00 05/23/20 14:07 Rocaltrol PO 0.5 mcg QDAY [facility]INNE Administration Carvedilol 6.25 mg 05/22/20 22:00 05/23/20 21:22 Coreg PO 6.25 mg BID CORINNE Administration Clotrimazole 1 applic 05/22/20 22:00 05/23/20 00:28 Clotrimazole/Betamethasone TP 1 applic BID CORINNE Administration Famotidine 20 mg 05/23/20 10:00 05/23/20 14:06 Pepcid PO 20 mg QDAY [facility] Administration Sodium Chloride 100 mls @ 999 mls/hr 05/23/20 08:18 Nacl 0.9% IV MIKO PRN Hypotension Ondansetron HCl 4 mg 05/22/20 16:45 Zofran IV Q8H PRN Nausea And Vomiting Sodium Chloride 10 ml 05/22/20 22:00 05/23/20 21:28 Sodium Chloride Flush Syringe 10 Ml IV 10 ml BID [facility]INNE Administration Sodium Chloride 10 ml 05/22/20 16:45 Sodium Chloride Flush Syringe 10 Ml IV PRN PRN LINE FLUSH Valsartan 160 mg 05/23/20 10:00 05/23/20 14:07 Diovan PO 160 mg QDAY CORINNE Administration
[2020-05-24] MEDS: VALSARTAN 160MG TAB PO SCH (09:39)
[2020-05-24] MEDS: CALCITRIOL 0.5 MCG CAP PO SCH (09:39)
[2020-05-24] MEDS: amLODIPine 5 MG TAB PO SCH (09:39)
[2020-05-24] MEDS: carvediloL 6.25 MG TAB PO SCH ×2 (09:40→22:28)
[2020-05-24] MEDS: FAMOTIDINE 10 MG TAB PO SCH (09:40)
[2020-05-24] MEDS: CLOTRIMAZOLE/BETAMETHASONE CREAM 15 GM TP SCH (11:26)
[2020-05-24] MEDS: ACETAMINOPHEN 325 MG TAB PO PRN (11:31)
--- NOTE | 2020-05-24 13:11 | Consultation ---
History of Present Illness - Reason for Consult Consult date: 05/24/20 HD cath infection Requesting physician: STEPHANIE CADENA - History of Present Illness 44 years old male with history of end-stage renal disease on hemodialysis via PermCath, hypertension, morbid obesity, admitted on due to 2-day history of purulent discharge from hemodialysis catheter site. Patient reports he has been itching due to PermCath dressing for several weeks. Patient denies any fever, chills, nausea, body aches, vomiting, diarrhea, abdominal pain. Blood cultures did not grow. Review of Systems: positive in bold print General: fever, chills, malaise Cutaneous: rash, pruritus at hemodialysis catheter site, with drainage Head: headaches or injury Eyes: changes in vision, eye pain, double vision Ears: ear pain, ear discharge, ringing or hearing loss Nose: nose bleeding, stuffiness Mouth & throat: bleeding gums, horseness, no dental problems, or swollen glands Neck: no pain, node enlargement/lumps, tyroid enlargement or tenderness Respiratory: SOB, cough, NAGEL, wheezing, sputum, hemoptysis, pleuritic chest pain Cardiovascular: chest pain, leg edema, cyanosis, NAGEL, orthopnea Musculoskeletal: edema, deformities, pain Gastrointestinal: nausea, vomiting, hematemesis, diarrhea, constipation, melena, bright red blood in stools, fecal incontinence, jaundice Genitourinary/Reproductive: frequent urination, dysuria, hematuria, incontinence Neurogical: seizures, headaches, weakness, paresthesias, loss of speech or vision; memory loss, vertigo, tremors, numbness Psychiatric: stable mood; excessive anxiety, sadness or moodiness Past History Past Medical History: ESRD, hypertension, other (See HPI) Past Surgical History: No surgical history, Other (Reviewed) Social history: , lives with family Family history: hypertension Medications and Allergies Allergies Allergy/AdvReac Type Severity Reaction Status Date / Time No Known Allergies Allergy Verified 05/22/20 10:38 Home Medications Medication Instructions Recorded Confirmed Last Taken Type Amlodipine Besylate/Benazepril 1 cap PO QDAY 05/01/13 03/04/20 Unknown History [amLODIPine-Benazepril 2.5/10 mg] Clotrimazole/Betamethasone Dip 1 applicatio TP BID #45 gram 03/11/20 Unknown Rx [Lotrisone Cream] Famotidine [Pepcid] 20 mg PO QDAY #30 tablet 03/11/20 Unknown Rx Valsartan [Diovan] 160 mg PO QDAY #30 tablet 03/11/20 Unknown Rx amLODIPine 10 mg PO QDAY #30 tablet 03/11/20 Unknown Rx calcitrioL [Rocaltrol] 0.5 mcg PO QDAY #30 capsule 03/11/20 Unknown Rx carvediloL [Coreg] 6.25 mg PO BID #60 tablet 03/11/20 Unknown Rx Active Meds: Active Medications Acetaminophen (Tylenol) 650 mg PO Q4H PRN PRN Reason: Pain MILD(1-3)/Fever >100.5/VARGHESE Last Admin: 05/24/20 11:31 Dose: 650 mg Documented by: Amlodipine Besylate (Amlodipine) 10 mg PO QDAY [facility] Last Admin: 05/24/20 09:39 Dose: 10 mg Documented by: Calcitriol (Rocaltrol) 0.5 mcg PO QDAY [facility] Last Admin: 05/24/20 09:39 Dose: 0.5 mcg Documented by: Carvedilol (Coreg) 6.25 mg PO BID [facility] Last Admin: 05/24/20 09:40 Dose: 6.25 mg Documented by: Clotrimazole (Clotrimazole/Betamethasone) 1 applic TP BID [facility] Last Admin: 05/24/20 11:26 Dose: Not Given Documented by: Famotidine (Pepcid) 20 mg PO QDAY [facility] Last Admin: 05/24/20 09:40 Dose: 20 mg Documented by: Sodium Chloride (Nacl 0.9%) 100 mls @ 999 mls/hr IV MIKO PRN PRN Reason: Hypotension Ondansetron HCl (Zofran) 4 mg IV Q8H PRN PRN Reason: Nausea And Vomiting Sodium Chloride (Sodium Chloride Flush Syringe 10 Ml) 10 ml IV BID [facility] Last Admin: 05/24/20 09:40 Dose: 10 ml Documented by: Sodium Chloride (Sodium Chloride Flush Syringe 10 Ml) 10 ml IV PRN PRN PRN Reason: LINE FLUSH Valsartan (Diovan) 160 mg PO QDAY [facility] Last Admin: 05/24/20 09:39 Dose: 160 mg Documented by: Physical Examination - Physical Exam Narrative exam: General appearance: Alert in NAD pleasant Eyes: anicteric sclerae, moist conjunctivae; no lid-lag; PERRLA HENT: Normocephalic, Atraumatic; normal external ears, nares open, oropharynx clear Neck: supple, tracheal midline, no JVD Lungs: CTA, with normal respiratory effort and no intercostal retractions CV: RRR no murmur Abdomen: Soft, non-tender; no masses or hepatosplenomegaly Extremities: no edema, no cyanosis Skin: Right chest hemodialysis catheter without erythema or drainage Psych: no agitated Neuro: alert and oriented x 3. Moving all extermities - Constitutional Vitals: Vital Signs Temp Pulse Resp BP Pulse Ox 98.7 F 82 18 119/86 98 05/24/20 07:01 05/24/20 09:40 05/24/20 07:01 05/24/20 09:40 05/24/20 10:05 Temperature -Last 24 Hours Temperature 98.7 F Temperature 97.9 F Temperature 98.5 F Temperature 98.7 F Results - Labs CBC & Chem 7: 05/22/20 12:17 05/22/20 12:17 Assessment and Plan Cultures: Blood cultures no growth today. Assessment: 44 years old male with history of end-stage renal disease on hemodialysis via PermCath, hypertension, morbid obesity, admitted on 05/22/2020 due to 2-day history of purulent discharge from hemodialysis catheter site: #Presumed Permcath site infection: No evidence of exit site infection, no bacteremia, no previous bacteremia reported, patient is afebrile no leukocytosis, no evidence of ongoing sepsis. Catheter was exchanged via fluoroscopic guidance 05/23/2020. Patient complaining of itching PermCath site, this is likely contact dermatitis secondary to dressing. Patient denies purulent drainage, reports clear drainage. #Contact dermatitis to Permcath dressing #ESRD on HD Recommendations: -No need for antibiotics at this time -Use hypoallergenic Permcath dressing -Obtain blood cultures in 1 week at hemodialysis -Agree with AV fistula formation to prevent catheter associated infections -Okay to discharge from ID standpoint Cassie Brody MD Infectious Diseases [employer] [facility] M [phone] O [phone]
--- NOTE | 2020-05-24 14:30 | Vascular Lab Report ---
DOPPLER ULTRASOUND UPPER EXTREMITY VENOUS MAPPING, BILATERAL INDICATION: need buttermaker dialysis access TECHNIQUE: Grayscale, color and spectral Doppler imaging of the venous system of the right and left upper extrem ities was performed. COMPARISON: Venous ultrasound from 03/05/2020 FINDINGS: RIGHT UPPER EXTREMITY: Subclavian Vein: Patent. Axillary Vein: Patent. Cephalic Vein (Diameter in mm): - Upper Arm: 4 - Mid Arm: 4 - Antecubital: 6 - Upper Forearm: 3 - Mid Forearm: 3 - Wrist: 2 Basilic Vein (Diameter in mm): - Upper Arm: 4 - Mid Arm: 4 - Antecubital: 3 - Upper Forearm: 1 - Mid Forearm: 2 - Wrist: 1 Peak systolic velocity in the radial artery is 56 cm/s and peak systolic velocity within the brachial artery is 71 cm/s. LEFT UPPER EXTREMITY: Subclavian Vein: Patent. Axillary Vein: Patent. Cephalic Vein (Diameter in mm): - Upper Arm: 3 - Mid Arm: 2 - Antecubital: 4 - Upper Forearm: 2 - Mid Forearm: 2 - Wrist: 2 Basilic Vein (Diameter in mm): - Upper Arm: 3 - Mid Arm: 4 - Antecubital: 2 - Upper Forearm: 2 - Mid Forearm: 2 - Wrist: 1 Peak systolic velocity within the radial artery is 43 cm/s and peak systolic velocity in the brachial artery is 71 cm/s. Additional Findings: None. IMPRESSION: 1. No sonographic evidence of deep venous thrombosis. 2. Upper extremity venous mapping as above. Signer Name: Devin Barr MD Signed: 05/24/2020 2:25 PM Workstation Name: [id number]
[2020-05-24] MEDS ORDERED: SODIUM CHLORIDE 0.9% 100 ML IV PRN (18:38)
[2020-05-25] MEDS: carvediloL 6.25 MG TAB PO SCH ×2 (00:13→13:15)
--- NOTE | 2020-05-25 08:26 | Progress Note ---
Objective - Vital Signs Vital signs: Vital Signs - 12hr 05/24/20 05/25/20 05/25/20 23:32 00:13 06:18 Temperature 98.3 F 98.5 F Pulse Rate 87 87 86 Respiratory 18 18 Rate Blood Pressure 139/93 139/93 125/88 O2 Sat by Pulse 97 98 Oximetry - Lab 05/22/20 12:17 05/22/20 12:17 Most recent lab results Calcium 9.2 mg/dL (8.4-10.2) 05/22/20 12:17 Medications & Allergies - Medications Allergies/Adverse Reactions: Allergies No Known Allergies Allergy (Verified 05/22/20 10:38) Home Medications: Home Medications Medication Instructions Recorded Confirmed Last Taken Type Amlodipine Besylate/Benazepril 1 cap PO QDAY 05/01/13 03/04/20 Unknown History [amLODIPine-Benazepril 2.5/10 mg] Clotrimazole/Betamethasone Dip 1 applicatio TP BID #45 gram 03/11/20 Unknown Rx [Lotrisone Cream] Famotidine [Pepcid] 20 mg PO QDAY #30 tablet 03/11/20 Unknown Rx Valsartan [Diovan] 160 mg PO QDAY #30 tablet 03/11/20 Unknown Rx amLODIPine 10 mg PO QDAY #30 tablet 03/11/20 Unknown Rx calcitrioL [Rocaltrol] 0.5 mcg PO QDAY #30 capsule 03/11/20 Unknown Rx carvediloL [Coreg] 6.25 mg PO BID #60 tablet 03/11/20 Unknown Rx Active Medications: Generic Name Dose Route Start Last Admin Trade Name Beka PRN Reason Stop Dose Admin Acetaminophen 650 mg 05/22/20 16:45 05/24/20 11:31 Tylenol PO 650 mg Q4H PRN Administration Pain MILD(1-3)/Fever >100.5/VARGHESE Amlodipine Besylate 10 mg 05/23/20 10:00 05/24/20 09:39 Amlodipine PO 10 mg QDAY CORINNE Administration Calcitriol 0.5 mcg 05/23/20 10:00 05/24/20 09:39 Rocaltrol PO 0.5 mcg QDAY CORINNE Administration Carvedilol 6.25 mg 05/22/20 22:00 05/25/20 00:13 Coreg PO 6.25 mg BID CORINNE Administration Clotrimazole 1 applic 05/22/20 22:00 05/24/20 11:26 Clotrimazole/Betamethasone TP Not Given BID CORINNE Famotidine 20 mg 05/23/20 10:00 05/24/20 09:40 Pepcid PO 20 mg QDAY CORINNE Administration Sodium Chloride 100 mls @ 999 mls/hr 05/23/20 08:18 Nacl 0.9% IV MIKO PRN Hypotension Ondansetron HCl 4 mg 05/22/20 16:45 Zofran IV Q8H PRN Nausea And Vomiting Sodium Chloride 10 ml 05/22/20 22:00 05/24/20 22:28 Sodium Chloride Flush Syringe 10 Ml IV Not Given BID CORINNE Sodium Chloride 10 ml 05/22/20 16:45 Sodium Chloride Flush Syringe 10 Ml IV PRN PRN LINE FLUSH Valsartan 160 mg 05/23/20 10:00 05/24/20 09:39 Diovan PO 160 mg QDAY CORINNE Administration
--- NOTE | 2020-05-25 08:55 | Discharge Summary ---
Providers - Providers Date of Admission: 05/23/20 09:21 Date of discharge: 05/25/20 Attending physician: NITA MOORE 05/22/20 15:56 Consult to Physician [CONS] Urgent Comment: Consulting Provider: BRUNO RODRIGUEZ Physician Instructions: Reason For Exam: permacath exchange 05/22/20 15:58 Consult to Physician [CONS] Urgent Comment: Consulting Provider: TRACEY HOLLAND Physician Instructions: Reason For Exam: esrd [facility] permacath exchange 05/23/20 17:05 Consult to Physician [CONS] Routine Comment: Consulting Provider: CHAR STEINER Physician Instructions: Reason For Exam: Dialysis catheter infection Primary care physician: KIRAN FATIMA Hospitalization Reason for admission: HD cath infection Condition: Stable Hospital course: 44 years old male with history of end-stage renal disease on hemodialysis via PermCath, hypertension, morbid obesity, admitted for 2-day history of purulent discharge from hemodialysis catheter site. Patient reported he has been itching due to PermCath dressing for several weeks. Patient denied any fever, chills, nausea, body aches, vomiting, diarrhea, abdominal pain. The patient was admitted with diagnosis of presumed PermCath site infection. The patient was seen by ID in consultation and showed no evidence of exit site infection. Shaheen poon was noted to have no bacteremia, leukocytosis, fever or evidence of sepsis. Catheter was exchanged via fluoroscopic guidance on 05/23/2020. ID felt that the itching at the PermCath site as described by the patient was related to a contact dermatitis associated with dressing. ID felt that there was no need for antibiotics at this time. Patient should use hypoallergenic PermCath dressing. Blood cultures will be obtained 1 week at hemodialysis per ID recommendations after discharge. Dedicated discharge time 32 minutes. Disposition: DC- TO HOME OR SELFCARE Time spent for discharge: 32 - Discharge Diagnoses (1) Contact dermatitis Status: Acute (2) Complication of vascular dialysis catheter Status: Acute (3) ESRD on dialysis Status: Acute (4) Hypertension Status: Acute Qualifiers: Hypertension type: essential hypertension Qualified Code(s): I10 - Essential (primary) hypertension (5) Obesity hypoventilation syndrome Status: Acute (6) End-stage renal disease needing dialysis Status: Acute Core Measure Documentation - Palliative Care Palliative Care/ Comfort Measures: Not Applicable - Core Measures Any of the following diagnoses?: none Exam - Constitutional Vitals: Temp Pulse Resp BP Pulse Ox 98.4 F 84 18 116/88 100 05/25/20 07:38 05/25/20 07:38 05/25/20 07:38 05/25/20 07:38 05/25/20 07:38 General appearance: Present: no acute distress, well-nourished - EENT Eyes: Present: PERRL ENT: hearing intact, clear oral mucosa - Neck Neck: Present: supple, normal ROM - Respiratory Respiratory effort: normal Respiratory: bilateral: CTA - Cardiovascular Heart Sounds: Present: S1 & S2. Absent: rub, click - Extremities Extremities: pulses symmetrical, No edema Peripheral Pulses: within normal limits - Abdominal General gastrointestinal: Present: soft, non-tender, non-distended, normal bowel sounds Male genitourinary: Present: normal - Integumentary Integumentary: Present: clear, warm, dry - Musculoskeletal Musculoskeletal: gait normal, strength equal bilaterally - Psychiatric Psychiatric: appropriate mood/affect, intact judgment & insight - Neurologic Neurologic: CNII-XII intact, moves all extremities Plan Activity: advance as tolerated Weight Bearing Status: Weight Bear as Tolerated Diet: renal Follow up with: KIRAN FATIMA MD [Primary Care Provider] - 7 Days CHAR STEINER MD [Staff Physician] - 7 Days
[2020-05-25 09:43] LABS: Basophils # (Auto) 0.1 K/mm3 (0.0-0.1); Basophils % (Auto) 0.8 % (0.0-1.8); Eosinophils # (Auto) 0.4 K/mm3 (0.0-0.4); Eosinophils % (Auto) 4.5 % (0.0-4.3); Hemoglobin 11.1 gm/dl (11.8-15.2); Lymphocytes # (Auto) 3.1 K/mm3 (1.2-5.4); Lymphocytes % (Auto) 35.7 % (13.4-35.0); Mean Corpuscular HGB Conc 34 % (32-34); Mean Corpuscular Volume 93 fl (84-94); Monocytes # (Auto) 0.5 K/mm3 (0.0-0.8); Monocytes % (Auto) 6.1 % (0.0-7.3); Platelet Count 278 K/mm3 (140-440); Red Blood Count 3.54 M/mm3 (3.65-5.03); Red Cell Distribution Width 15.5 % (13.2-15.2)
[2020-05-25 10:01] LABS: Calcium 9.3 mg/dL (8.4-10.2)
[2020-05-25 12:47] VITALS: BP 131/98
[2020-05-25] MEDS: FAMOTIDINE 10 MG TAB PO SCH (13:14)
[2020-05-25] MEDS: VALSARTAN 160MG TAB PO SCH (13:15)
[2020-05-25] MEDS: amLODIPine 5 MG TAB PO SCH (13:15)
[2020-05-25] MEDS: CALCITRIOL 0.5 MCG CAP PO SCH (13:15)
[2020-05-25] MEDS: CLOTRIMAZOLE/BETAMETHASONE CREAM 15 GM TP SCH (13:17)
== END 2020-05-25 15:30 | disposition home or self-care (01) | DRG 314 ==
LOC: ED 09:37 → 3A 16:45 → 3B-SURG 17:01 → OBSVTOIN 05-23 09:21
PROVIDERS: ADMIT Internal Medicine; ATTEND Hospitalist
PROC: 0JPT3XZ Removal of Tunneled Vascular Access Device from Trunk Subcutaneous Tissue and Fascia, Percutaneous Approach (ICD-10-PCS; principal; 2020-05-23)
PROC: 0JH63XZ Insertion of Tunneled Vascular Access Device into Chest Subcutaneous Tissue and Fascia, Percutaneous Approach (ICD-10-PCS; 2020-05-23)
PROC: 02PY33Z Removal of Infusion Device from Great Vessel, Percutaneous Approach (ICD-10-PCS; 2020-05-23)
PROC: 02HV33Z Insertion of Infusion Device into Superior Vena Cava, Percutaneous Approach (ICD-10-PCS; 2020-05-23)
PROC: B5181ZA Fluoroscopy of Superior Vena Cava using Low Osmolar Contrast, Guidance (ICD-10-PCS; 2020-05-23)
PROC: 5A1D70Z Performance of Urinary Filtration, Intermittent, Less than 6 Hours Per Day (ICD-10-PCS; 2020-05-23)
PROC: 5A1D70Z Performance of Urinary Filtration, Intermittent, Less than 6 Hours Per Day (ICD-10-PCS; 2020-05-25)
DX: T82.7XXA Infection and inflammatory reaction due to other cardiac and vascular devices, implants and grafts, initial encounter (principal); N18.6 End stage renal disease; E66.2 Morbid (severe) obesity with alveolar hypoventilation; I12.0 Hypertensive chronic kidney disease with stage 5 chronic kidney disease or end stage renal disease; N25.81 Secondary hyperparathyroidism of renal origin; Y84.1 Kidney dialysis as the cause of abnormal reaction of the patient, or of later complication, without mention of misadventure at the time of the procedure; Y92.89 Other specified places as the place of occurrence of the external cause; K21.9 Gastro-esophageal reflux disease without esophagitis; Z99.2 Dependence on renal dialysis; Z82.49 Family history of ischemic heart disease and other diseases of the circulatory system; D63.1 Anemia in chronic kidney disease; E83.9 Disorder of mineral metabolism, unspecified; Z68.38 Body mass index [BMI] 38.0-38.9, adult; L25.9 Unspecified contact dermatitis, unspecified cause
CPT/HCPCS: 36415; 36581; 77001; 80048; 80074; 80202; 85025; 87040; 93970; G0378; C1750; C1769; J1644; J2250; J3010; J3370; J7040

== ENCOUNTER 2020-06-26 09:12 | Emergency (ER) | payer MEDICARE, OTHER ==
[2020-06-26 10:56] LABS: Mean Corpuscular HGB Conc 35 % (32-34); Mean Corpuscular Volume 92 fl (84-94); Platelet Count 273 K/mm3 (140-440); Red Blood Count 3.71 M/mm3 (3.65-5.03); Red Cell Distribution Width 14.4 % (13.2-15.2)
[2020-06-26 11:16] LABS: Albumin 4.2 g/dL (3.9-5); Calcium 9.9 mg/dL (8.4-10.2)
--- NOTE | 2020-06-26 15:32 | Emergency Department Report ---
ED General Adult HPI - General Chief complaint: Medical Clearance Stated complaint: CATH CAME OUT OF CHEST PUI?: No Time Seen by Provider: 06/26/20 14:01 Source: patient Mode of arrival: Ambulatory Limitations: No Limitations - History of Present Illness Initial comments: Chief complaint: "My catheter came out." HPI: This is a 44-year-old male with history of end-stage renal disease on hemodialysis Wednesday, hypertension who presents with dislodged permacath. Patient accidentally pulled out permacath while he was changing his shirt. The permacath is still partially inserted at the right chest. He went to the hemodialysis clinic today. He was referred to the emergency department for permacath replacement. He has been in his normal state of health. He denies chest pain. He denies shortness of breath. He does not take anticoagulation. His clinical nurse manager is Dr. Bear. Patient receives hemodialysis at [facility]. -: days(s) (1) Location: chest (Right chest permacath) Severity scale (0 -10): 0 Consistency: constant Improves with: none Worsens with: none Associated Symptoms: denies other symptoms Treatments Prior to Arrival: other (Patient was evaluated by hemodialysis clinic nurse) - Related Data Home Medications Medication Instructions Recorded Confirmed Last Taken Amlodipine Besylate/Benazepril 1 cap PO QDAY 05/01/13 03/04/20 Unknown [amLODIPine-Benazepril 2.5/10 mg] Previous Rx's Medication Instructions Recorded Last Taken Type Clotrimazole/Betamethasone Dip 1 applicatio TP BID #45 gram 03/11/20 Unknown Rx [Lotrisone Cream] amLODIPine 10 mg PO QDAY #30 tablet 03/11/20 Unknown Rx calcitrioL [Rocaltrol] 0.5 mcg PO QDAY #30 capsule 03/11/20 Unknown Rx carvediloL [Coreg] 6.25 mg PO BID #60 tablet 03/11/20 Unknown Rx Allergies Allergy/AdvReac Type Severity Reaction Status Date / Time No Known Allergies Allergy Verified 05/22/20 10:38 ED Review of Systems ROS: Stated complaint: CATH CAME OUT OF CHEST Other details as noted in HPI Comment: All other systems reviewed and negative Constitutional: denies: fever, malaise Respiratory: denies: cough, shortness of breath Cardiovascular: denies: chest pain Gastrointestinal: denies: abdominal pain, nausea, vomiting ED Past Medical Hx - Past Medical History Previous Medical History?: Yes Hx Hypertension: Yes Hx Renal Disease: Yes - Surgical History Past Surgical History?: No - Social History Smoking Status: Current Every Day Smoker Substance Use Type: Alcohol - Medications Home Medications: Home Medications Medication Instructions Recorded Confirmed Last Taken Type Amlodipine Besylate/Benazepril 1 cap PO QDAY 05/01/13 03/04/20 Unknown History [amLODIPine-Benazepril 2.5/10 mg] Clotrimazole/Betamethasone Dip 1 applicatio TP BID #45 gram 03/11/20 Unknown Rx [Lotrisone Cream] amLODIPine 10 mg PO QDAY #30 tablet 03/11/20 Unknown Rx calcitrioL [Rocaltrol] 0.5 mcg PO QDAY #30 capsule 03/11/20 Unknown Rx carvediloL [Coreg] 6.25 mg PO BID #60 tablet 03/11/20 Unknown Rx ED Physical Exam - General Limitations: No Limitations General appearance: alert, in no apparent distress - Head Head exam: Present: atraumatic, normocephalic - Eye Eye exam: Present: normal appearance - ENT ENT exam: Present: mucous membranes moist - Neck Neck exam: Present: normal inspection, full ROM - Respiratory Respiratory exam: Present: normal lung sounds bilaterally. Absent: respiratory distress, wheezes, rales, rhonchi - Cardiovascular Cardiovascular Exam: Present: regular rate, normal rhythm, normal heart sounds, other (Right chest: Permacath is partially dislodged from insertion point. Insertion site clean dry without discharge or erythema). Absent: systolic murmur, diastolic murmur, rubs, gallop - GI/Abdominal GI/Abdominal exam: Present: soft, normal bowel sounds. Absent: distended, tenderness, guarding, rebound - Rectal Rectal exam: Present: deferred - Extremities Exam Extremities exam: Present: normal inspection - Back Exam Back exam: Present: normal inspection - Neurological Exam Neurological exam: Present: alert, oriented X3 - Psychiatric Psychiatric exam: Present: normal affect, normal mood - Skin Skin exam: Present: warm, dry, intact, normal color. Absent: rash ED Course Vital Signs 06/26/20 09:27 Temperature 98.6 F Pulse Rate 99 H Respiratory 20 Rate Blood Pressure 152/103 O2 Sat by Pulse 99 Oximetry ED Medical Decision Making - Lab Data Result diagrams: 06/26/20 10:04 06/26/20 10:04 - Medical Decision Making Dislodged permacath:Patient was evaluated by vascular surgeon Dr. Milind Moore face to face in ED. Dr. Moore arrange for appointment 9:30 AM for permacath placement in his office setting tomorrow. Patient is currently asymptomatic. He does not require emergent hemodialysis. Potassium is 5.1. Critical care attestation.: If time is entered above; I have spent that time in minutes in the direct care of this critically ill patient, excluding procedure time. ED Disposition Clinical Impression: Complications, dialysis, catheter, mechanical Disposition: DC-01 TO HOME OR SELFCARE Is pt being admited?: No Does the pt Need Aspirin: No Condition: Stable Additional Instructions: Please see Dr. Moore in his office at 9:30 AM. Office
[2020-06-26 16:34] VITALS: BP 135/97
== END 2020-06-26 17:17 | disposition home or self-care (01) ==
LOC: ED 09:12
DX: T82.49XA Other complication of vascular dialysis catheter, initial encounter (principal); I10 Essential (primary) hypertension; F17.200 Nicotine dependence, unspecified, uncomplicated; Z79.899 Other long term (current) drug therapy
CPT/HCPCS: 36415; 80053; 85027; 99283

== ENCOUNTER 2020-07-25 04:55 | Emergency (ER) | payer MEDICARE ==
[2020-07-25 06:25] LABS: Basophils # (Auto) 0.1 K/mm3 (0.0-0.1); Basophils % (Auto) 1.1 % (0.0-1.8); Eosinophils # (Auto) 0.2 K/mm3 (0.0-0.4); Eosinophils % (Auto) 2.5 % (0.0-4.3); Hematocrit 26.1 % (35.5-45.6); Hemoglobin 8.6 gm/dl (11.8-15.2); Lymphocytes # (Auto) 2.5 K/mm3 (1.2-5.4); Lymphocytes % (Auto) 25.4 % (13.4-35.0); Mean Corpuscular HGB Conc 33 % (32-34); Mean Corpuscular Volume 92 fl (84-94); Monocytes # (Auto) 0.8 K/mm3 (0.0-0.8); Monocytes % (Auto) 8.5 % (0.0-7.3); Platelet Count 368 K/mm3 (140-440); Red Blood Count 2.83 M/mm3 (3.65-5.03)
--- NOTE | 2020-07-25 10:31 | Emergency Department Report ---
- General Chief complaint: Skin/Abscess/Foreign Body Stated complaint: POSS INFECTION,CATH CLOGGED Time Seen by Provider: 07/25/20 10:30 Source: patient Mode of arrival: Ambulatory Limitations: No Limitations - Related Data Home Medications Medication Instructions Recorded Confirmed Last Taken Amlodipine Besylate/Benazepril 1 cap PO QDAY 05/01/13 07/10/20 Unknown [amLODIPine-Benazepril 2.5/10 mg] Previous Rx's Medication Instructions Recorded Last Taken Type Clotrimazole/Betamethasone Dip 1 applicatio TP BID #45 gram 03/11/20 Unknown Rx [Lotrisone Cream] amLODIPine 10 mg PO QDAY #30 tablet 03/11/20 Unknown Rx calcitrioL [Rocaltrol] 0.5 mcg PO QDAY #30 capsule 03/11/20 Unknown Rx carvediloL [Coreg] 6.25 mg PO BID #60 tablet 03/11/20 Unknown Rx Allergies Allergy/AdvReac Type Severity Reaction Status Date / Time No Known Allergies Allergy Verified 05/22/20 10:[address] [facility] Chief Complaint: Skin/Abscess/Foreign Body Stated Complaint: POSS INFECTION,CATH CLOGGED Home Medications: Home Medications Medication Instructions Recorded Confirmed Last Taken Amlodipine Besylate/Benazepril 1 cap PO QDAY 05/01/13 07/10/20 Unknown [amLODIPine-Benazepril 2.5/10 mg] Previous Rx's Medication Instructions Recorded Last Taken Type Clotrimazole/Betamethasone Dip 1 applicatio TP BID #45 gram 03/11/20 Unknown Rx [Lotrisone Cream] amLODIPine 10 mg PO QDAY #30 tablet 03/11/20 Unknown Rx calcitrioL [Rocaltrol] 0.5 mcg PO QDAY #30 capsule 03/11/20 Unknown Rx carvediloL [Coreg] 6.25 mg PO BID #60 tablet 03/11/20 Unknown Rx Allergies/Adverse Reactions: Allergies Allergy/AdvReac Type Severity Reaction Status Date / Time No Known Allergies Allergy Verified 05/22/20 10:38 ED Review of Systems ROS: Stated complaint: POSS INFECTION,CATH CLOGGED Other details as noted in HPI ED Past Medical Hx - Past Medical History Previous Medical History?: Yes Hx Hypertension: Yes Hx Heart Attack/AMI: No Hx Congestive Heart Failure: No Hx Deep Vein Thrombosis: No Hx GERD: No Hx Renal Disease: No Hx Kidney Stones: No Hx Asthma: No Hx HIV: No Additional medical history: Permacath Left Chest - Surgical History Past Surgical History?: No Hx Coronary Stent: No Hx Pacemaker: No Hx Internal Defibrillator: No - Social History Smoking Status: Current Some Day Smoker Substance Use Type: None - Medications Home Medications: Home Medications Medication Instructions Recorded Confirmed Last Taken Type Amlodipine Besylate/Benazepril 1 cap PO QDAY 05/01/13 07/10/20 Unknown History [amLODIPine-Benazepril 2.5/10 mg] Clotrimazole/Betamethasone Dip 1 applicatio TP BID #45 gram 03/11/20 07/10/20 Unknown Rx [Lotrisone Cream] amLODIPine 10 mg PO QDAY #30 tablet 03/11/20 07/10/20 Unknown Rx calcitrioL [Rocaltrol] 0.5 mcg PO QDAY #30 capsule 03/11/20 07/10/20 Unknown Rx carvediloL [Coreg] 6.25 mg PO BID #60 tablet 03/11/20 07/10/20 Unknown Rx ED Physical Exam - General Limitations: No Limitations ED Course Vital Signs 07/25/20 05:29 Temperature 98.3 F Pulse Rate 96 H Respiratory 16 Rate Blood Pressure 164/110 O2 Sat by Pulse 100 Oximetry ED Medical Decision Making - Lab Data Result diagrams: 07/25/20 06:08 07/25/20 06:08 Critical care attestation.: If time is entered above; I have spent that time in minutes in the direct care of this critically ill patient, excluding procedure time. ED Disposition Condition: Stable Referrals: PRIMARY CARE [Primary Care Provider] - 3-5 Days
[2020-07-25] MEDS ORDERED: ALTEPLASE 2 MG INJ IV ONE ×2 (10:46→14:00)
[2020-07-25] MEDS ORDERED: oxyCODONE /ACETAMINOPHEN 5-325MG TAB PO ONE (10:47)
--- NOTE | 2020-07-25 11:01 | Emergency Department Report ---
ED General Adult HPI - General Chief complaint: Skin/Abscess/Foreign Body Stated complaint: POSS INFECTION,CATH CLOGGED PUI?: No Time Seen by Provider: 07/25/20 10:30 Source: patient Mode of arrival: Ambulatory Limitations: No Limitations - History of Present Illness Initial comments: Patient is a 44-year-old male with history of end-stage renal disease on hemodialysis who presents to the emergency department with concern for catheter infection as well as a clogged permacath. Patient has had multiple episodes of infections of his PermCath. He most recently had a new permacath placed in the left subclavian on July 15. Patient states that he has not had any fevers or chills. He has noted some exudate from the area around the catheter. He is currently still undergoing antibiotic therapy. Patient states that he also attempted to get dialysis a few days ago and stated that he could not due to his catheter being clogged. - Related Data Home Medications Medication Instructions Recorded Confirmed Last Taken Amlodipine Besylate/Benazepril 1 cap PO QDAY 05/01/13 07/10/20 Unknown [amLODIPine-Benazepril 2.5/10 mg] Previous Rx's Medication Instructions Recorded Last Taken Type Clotrimazole/Betamethasone Dip 1 applicatio TP BID #45 gram 03/11/20 Unknown Rx [Lotrisone Cream] amLODIPine 10 mg PO QDAY #30 tablet 03/11/20 Unknown Rx calcitrioL [Rocaltrol] 0.5 mcg PO QDAY #30 capsule 03/11/20 Unknown Rx carvediloL [Coreg] 6.25 mg PO BID #60 tablet 03/11/20 Unknown Rx Allergies Allergy/AdvReac Type Severity Reaction Status Date / Time No Known Allergies Allergy Verified 05/22/20 10:38 ED Review of Systems ROS: Stated complaint: POSS INFECTION,CATH CLOGGED Other details as noted in HPI Constitutional: denies: chills, fever Eyes: denies: eye discharge ENT: denies: dental pain Respiratory: denies: cough, shortness of breath Cardiovascular: denies: chest pain Endocrine: no symptoms reported Gastrointestinal: denies: nausea, vomiting, diarrhea Genitourinary: denies: dysuria, frequency Musculoskeletal: back pain Skin: rash Neurological: denies: weakness, numbness Psychiatric: denies: anxiety Hematological/Lymphatic: denies: easy bleeding ED Past Medical Hx - Past Medical History Previous Medical History?: Yes Hx Hypertension: Yes Hx Heart Attack/AMI: No Hx Congestive Heart Failure: No Hx Deep Vein Thrombosis: No Hx GERD: No Hx Renal Disease: No Hx Kidney Stones: No Hx Asthma: No Hx HIV: No Additional medical history: Permacath Left Chest - Surgical History Past Surgical History?: No Hx Coronary Stent: No Hx Pacemaker: No Hx Internal Defibrillator: No - Social History Smoking Status: Current Some Day Smoker Substance Use Type: None - Medications Home Medications: Home Medications Medication Instructions Recorded Confirmed Last Taken Type Amlodipine Besylate/Benazepril 1 cap PO QDAY 05/01/13 07/10/20 Unknown History [amLODIPine-Benazepril 2.5/10 mg] Clotrimazole/Betamethasone Dip 1 applicatio TP BID #45 gram 03/11/20 07/10/20 Unknown Rx [Lotrisone Cream] amLODIPine 10 mg PO QDAY #30 tablet 03/11/20 07/10/20 Unknown Rx calcitrioL [Rocaltrol] 0.5 mcg PO QDAY #30 capsule 03/11/20 07/10/20 Unknown Rx carvediloL [Coreg] 6.25 mg PO BID #60 tablet 03/11/20 07/10/20 Unknown Rx ED Physical Exam - General Limitations: No Limitations General appearance: alert, in no apparent distress - Head Head exam: Present: atraumatic, normocephalic - Eye Eye exam: Present: normal appearance Pupils: Present: normal accommodation - ENT ENT exam: Present: normal exam - Neck Neck exam: Present: normal inspection - Respiratory Respiratory exam: Present: normal lung sounds bilaterally. Absent: respiratory distress - Cardiovascular Cardiovascular Exam: Present: regular rate, normal rhythm, normal heart sounds - GI/Abdominal GI/Abdominal exam: Present: soft. Absent: tenderness - Rectal Rectal exam: Present: deferred - exam: Present: normal inspection - Extremities Exam Extremities exam: Present: normal inspection - Back Exam Back exam: Present: normal inspection, full ROM. Absent: CVA tenderness (R), CVA tenderness (L), paraspinal tenderness, vertebral tenderness - Neurological Exam Neurological exam: Present: alert, oriented X3 - Psychiatric Psychiatric exam: Present: normal affect - Skin Skin exam: Present: warm, dry, rash (Scaly dermatitis noted to the area around the skin of the chest where the permacath is located. There is exudate on the gauze but no exudate draining from the area.) ED Course Vital Signs 07/25/20 07/25/20 05:29 12:09 Temperature 98.3 F Pulse Rate 96 H 84 Respiratory 16 16 Rate Blood Pressure 164/110 Blood Pressure 153/93 [Left] O2 Sat by Pulse 100 97 Oximetry - Reevaluation(s) Reevaluation #1: 07/25/20 13:13 We have put out because to both patient's warp hanger as well as the dialysis nurse upstairs. Unfortunately there is only one dialysis nurse that she has not been able to attempt to push the cath flow through the catheter to ensure that the catheter is patent. Reevaluation #2: 07/25/20 13:58 Nursing staff stated that patient's catheter is patent after using Cathflo. We are awaiting phone call with patient's warp hanger for further recommendations. - Consultations Consultation #1: 07/25/20 14:[address] George's [employer]GET[employer] F[employer]ING SUPERVISOR, Mayi. I discussed the patient and he now has a patent PermCath. She will call in the to ensure the patient will be able to go to dialysis in the next few days. Consultation #2: 07/25/20 14:25 Mayi has called back. She states that the patient is to be discharged and his facility will make contact with the patient to determine an alternative location for him to be dialyzed. ED Medical Decision Making - Lab Data Result diagrams: 07/25/20 06:08 07/25/20 06:08 - Medical Decision Making Patient is a 44-year-old male with past medical history of end-stage renal disease on hemodialysis who has required multiple changes of his permacath secondary to infection who presents to the emergency department concern for infection as well as stating that his catheter is clogged. On exam there is some exudate on the gauze but there is no exudate draining at this time. Patient denies fevers chills and his labs which were obtained in triage are not consistent with sepsis or infection. Patient reports that his catheter is clogged so we will have a dialysis nurse come down to administer Cathflo in order to see if we can unclog the catheter. After this I will touch bases with patient's warp hanger and or patient vascular surgeon. Critical care attestation.: If time is entered above; I have spent that time in minutes in the direct care of this critically ill patient, excluding procedure time. ED Disposition Clinical Impression: Vascular catheter dysfunction Disposition: DC-01 TO HOME OR SELFCARE Is pt being admited?: No Does the pt Need Aspirin: No Condition: Stable Instructions: Dialysis Vascular Access Malfunction Referrals: PRIMARY CARE, [Primary Care Provider] - 3-5 Days
[2020-07-25 12:17] VITALS: BP 153/93
[2020-07-25] MEDS ORDERED: WATER FOR INJ Sterile (PF) 20 ML ONE (13:24)
== END 2020-07-25 15:16 | disposition home or self-care (01) ==
LOC: ED 04:55
DX: T82.9XXA Unspecified complication of cardiac and vascular prosthetic device, implant and graft, initial encounter (principal); I10 Essential (primary) hypertension; F17.200 Nicotine dependence, unspecified, uncomplicated; Z79.899 Other long term (current) drug therapy; Y92.89 Other specified places as the place of occurrence of the external cause
CPT/HCPCS: 36415; 80048; 85025; 87040; 99283; J2997

== ENCOUNTER 2020-08-13 06:39 | Day surgery (SDC) | payer MEDICARE ==
[~2020-08-13 06:39] MED LIST: BACTERIOSTATIC SODIUM CHLORIDE 0.9% 30 ML VIAL INFILTRATI ONE; MIDAZOLAM 2 MG/2 ML INJ IV NR; SODIUM CHLORIDE 0.9% 1000 ML 1,000 ML IV SCH; ceFAZolin/Water 2 GM/20 ML 2 GM/20 ML SYRINGE IV NR
[2020-08-13] MEDS ORDERED: ONDANSETRON 4 MG/2 ML INJ IV PRN (07:15)
[2020-08-13] MEDS ORDERED: fentaNYL 100 MCG/2 ML INJ IV PRN (07:15)
--- NOTE | 2020-08-13 07:15 | Anesthesia Day of Surgery ---
Anesthesia Day of Surgery - Day of Surgery Patient Examined: Yes Patient H&P Reviewed: Yes Patient is NPO: Yes Beta Blockers: Yes (coreg today AM)
--- NOTE | 2020-08-13 07:15 | Anesthesia Consultation ---
Anesthesia Consult and Med Hx Date of service: 08/13/20 - Airway Anesthetic Teeth Evaluation: Good, Crowns (gold crowns top incisors) ROM Head & Neck: Adequate Mental/Hyoid Distance: Adequate Mallampati Class: Class III Intubation Access Assessment: Possibly Difficult - Pulmonary Exam CTA: Yes - Cardiac Exam Cardiac Exam: RRR - Pre-Operative Health Status ASA Pre-Surgery Classification: ASA3 Proposed Anesthetic Plan: General - Pulmonary Hx Smoking: Yes (1/3 PPD) Hx Respiratory Symptoms: No Hx Sleep Apnea: No (sleep study results pending) - Cardiovascular System Hx Hypertension: Yes (took amlodipine and carvedilol today) Hx Heart Attack/AMI: No Hx Percutaneous Transluminal Coronary Angioplasty (PTCA): No Hx Cardia Arrhythmia: No - Central Nervous System CVA: No - Endocrine Hx End Stage Renal Disease: Yes (last HD 08/12/20) Hx Liver Disease: No Hx Insulin Dependent Diabetes: No Hx Non-Insulin Dependent Diabetes: No Hx Thyroid Disease: No - Hematic Hx Anemia: Yes - Other Systems Hx Obesity: Yes (BMI 37) - Additional Comments Anesthesia Medical History Comments: No hx anesthetic complications.
[2020-08-13] MEDS ORDERED: LIDOCAINE (1%) 10 MG/1 ML VIAL 20 ML MDV ONE (07:17)
[2020-08-13] MEDS ORDERED: BUPIVACAINE/PF (0.25%) 2.5 MG/ML 30 ML VIAL INFILTRATI ONE (07:17)
[2020-08-13] MEDS ORDERED: PROTAMINE SULFATE 50 MG/5 ML INJ ONE (07:17)
[2020-08-13] MEDS ORDERED: HEPARIN 10,000 UNITS/10 ML VIAL ONE (07:17)
[2020-08-13] MEDS ORDERED: THROMBIN (RECOMBINANT) 5,000 UNIT VIAL TP ONE (07:18)
[2020-08-13] MEDS ORDERED: SODIUM CHLORIDE 0.9% 250ML 500 ML ONE (07:18)
[2020-08-13] MEDS ORDERED: GELATIN SPONGE SIZE 100 TP ONE (07:18)
[2020-08-13] MEDS ORDERED: PHENYLEPHRINE/NS 1,000 MCG/10 ML SYRINGE (OR USE) IV ONE (07:42)
[2020-08-13] MEDS ORDERED: LIDOCAINE MPF (2%) 20 MG/1 ML VIAL 5 ML ONE (07:42)
[2020-08-13] MEDS ORDERED: GLYCOPYRROLATE 0.4 MG/2 ML INJ ONE (07:42)
[2020-08-13] MEDS ORDERED: dexAMETHasone 20 MG/5 ML VIAL ONE (07:42)
[2020-08-13] MEDS ORDERED: ONDANSETRON 4 MG/2 ML INJ ONE (07:42)
[2020-08-13] MEDS ORDERED: fentaNYL 100 MCG/2 ML INJ ONE (07:43)
[2020-08-13] MEDS ORDERED: propofoL 200 MG/20 ML VIAL IV ONE (07:43)
[2020-08-13 07:44] LABS: Hematocrit 24.6 % (35.5-45.6); Hemoglobin 8.5 gm/dl (11.8-15.2); Mean Corpuscular HGB Conc 34 % (32-34); Mean Corpuscular Volume 91 fl (84-94); Platelet Count 356 K/mm3 (140-440); Red Blood Count 2.72 M/mm3 (3.65-5.03)
[2020-08-13] MEDS ORDERED: SUCCINYLCHOLINE CHLORIDE 200 MG/10 ML INJ MDV ONE (08:00)
[2020-08-13] MEDS ORDERED: HEPARIN 10,000 UNITS/10 ML VIAL IV ONE (09:27)
[2020-08-13] MEDS ORDERED: SODIUM CHLORIDE 0.9% 250 ML IVPB IV ONE (09:28)
[2020-08-13] MEDS ORDERED: BUPIVACAINE/PF (0.5%) 5 MG/1 ML 10 ML VIAL INFILTRATI ONE (09:28)
--- NOTE | 2020-08-13 10:07 | Short Stay Summary ---
Short Stay Documentation Date of service: 08/13/20 Narrative H&P: See H&P - History H&P: obtained from office - Allergies and Medications Current Medications: Allergies No Known Allergies Allergy (Verified 08/12/20 10:21) Home Medications Medication Instructions Recorded Confirmed Last Taken Type Clotrimazole/Betamethasone Dip 1 applicatio TP BID #45 gram 03/11/20 08/12/20 Unknown Rx [Lotrisone Cream] amLODIPine 10 mg PO QDAY #30 tablet 03/11/20 08/13/20 08/13/20 06:00 Rx carvediloL [Coreg] 6.25 mg PO BID #60 tablet 03/11/20 08/13/20 08/13/20 06:00 Rx oxyCODONE /ACETAMINOPHEN [Percocet 1 tab PO Q6HR PRN 3 Days #12 tablet 07/25/20 08/13/20 08/05/20 08:00 Rx 5/325] Active Medications Fentanyl (Fentanyl 100 Mcg/2 Ml Inj) 50 mcg IV Q5MIN PRN PRN Reason: Pain , Severe (7-10) Stop: 08/13/20 23:00 Cefazolin Sodium (Ancef/Sterile Water 2 Gm/20 Ml) 2 gm in 20 mls @ 80 mls/hr IV PREOP NR; Protocol Stop: 08/13/20 20:00 Sodium Chloride (Nacl 0.9% 1000 Ml) 1,000 mls @ 42 mls/hr IV DIRECT CORINNE Stop: 08/13/20 23:59 Last Admin: 08/13/20 07:30 Dose: 42 mls/hr Documented by: Midazolam HCl (Midazolam 2 Mg/2 Ml Inj) 2 mg IV PREOP NR Stop: 08/13/20 17:00 Ondansetron HCl (Ondansetron 4 Mg/2 Ml Inj) 4 mg IV ONCE PRN PRN Reason: Nausea And Vomiting Stop: 08/13/20 23:00 - Brief post op/procedure progress note Date of procedure: 08/13/20 Pre-op diagnosis: End-Stage Renal Disease Post-op diagnosis: same Procedure: Creation of Right Brachiocephalic Arteriovenous Fistula Anesthesia: GETA Surgeon: MIGUEL ANGEL GALLEGOS Estimated blood loss: minimal Pathology: none Condition: stable - Disposition Condition at discharge: Good Disposition: DC- TO HOME OR SELFCARE Short Stay Discharge Plan Activity: other (No heavy lifting with right arm for 2 weeks.) Wound: open to air, keep clean and dry, other (Okay to wash the wound with soap and water but do not soak in water for 2 weeks.) Follow up with: MIGUEL ANGEL GALLEGOS MD [Staff Physician] - 14 Days Prescriptions: HYDROcodone/APAP 7.5-325 [[place] 7.5/325] 1 each PO Q6HR PRN #30 tablet PRN Reason: Pain
--- NOTE | 2020-08-13 10:11 | Operative Report ---
Operative Report Operative Report: Date of procedure: 08/13/2020 Pre-operative diagnosis: End-Stage Renal Disease Post-operative diagnosis: End-Stage Renal Disease Procedure(s): Creation of Right brachial Artery to Cephalic Vein Arteriovenous Fistula Surgeon: Milind Moore MD Toe Former Stitchdowns: None Anesthesia: General Endotracheal Anesthesia EBL: Minimal Counts: Correct Complications: None Condition: Stable Findings: Successful creation of right brachiocephalic arteriovenous fistula with palpable thrill and palpable radial pulse at the completion of the case. Specimen: None Indications: The patient is a 45-year-old male with a history of end-stage renal disease who is currently on hemodialysis through a permacath. He is in need of permanent hemodialysis access and was found to be a suitable candidate for creation of an arteriovenous fistula. He is ambidextrous and uses his right hand to do most of his daily activities however he uses his left hand to write. He initially consented for creation of a left arm arteriovenous fistula however in the preoperative area he decided that he wanted creation of a right arm arteriovenous fistula so he was given the risk, benefits, and alternative procedures and consented to the procedure. Description of Procedure: The patient was brought to the operating room and laid in supine position. After general endotracheal anesthesia was achieved his right arm was prepped and draped in normal sterile fashion. A transverse incision was then made and car ried down to the cephalic vein using sharp dissection. The vein was dissected out both proximally and distally and suture ligated and divided distally. I flushed the vein with heparinized saline and flow was controlled with a bulldog clamp. I then dissected out the brachial artery through this incision circumferentially both proximal and distal and controlled the artery with vessel loops. I systemically heparinized the patient with 3000 units of heparin IV and used angled DeBakey clamps to control flow through the artery. I created an arteriotomy using an 11 blade and Pitts scissors. I created an end to side anastomosis between the cephalic vein and brachial artery using a 6-0 Prolene in running fashion. Prior to completing the anastomosis I flashed the artery both proximally and distally and then flushed the anastomosis with heparinized saline to remove any debris. I then completed the anastomosis and removed all clamps allowing flow into the fistula which had an adequate thrill. I achieved hemostasis with a combination of Quick Clot and electrocautery. Once hemostasis had been achieved I closed the wound in 2 layers using a 3-0 Vicryl in a running fashion in the deep dermal layer and a 4-0 Monocryl in running fashion in the subcuticular layer. I then dressed the wound with Dermabond. The patient tolerated the procedure well. All sponge, needle, and instrument counts were correct. The patient was taken to the recovery area in stable condition.
[2020-08-13] MEDS ORDERED: HYDROcodone/ACETAMINOPHEN 7.5-325MG TAB PO SCH (10:30)
[2020-08-13] MEDS ORDERED: HYDROcodone/ACETAMINOPHEN 7.5-325MG TAB ONE (10:39)
[2020-08-13] MEDS ORDERED: HEPARIN 10,000 UNIT/1 ML VIAL ONE (11:00)
[2020-08-13] MEDS ORDERED: HEPARIN 10,000 UNIT/1 ML VIAL IV ONE (12:00)
--- NOTE | 2020-08-13 12:45 | Post Anesthesia Evaluation ---
- Post Anesthesia Evaluation Patient Participated: Yes Airway Patent: Yes Stable Respiratory Function: Yes Nausea/Vomiting: No Temp > 96.8F: Yes Pain Manageable: Yes Adequeate Hydration: Yes Anesthesia Complications: No
[2020-08-13 17:19] VITALS: BP 129/86
== END 2020-08-13 06:40 | disposition home or self-care (01) ==
LOC: OR 06:39
PROVIDERS: ATTEND Surgery Vascular Surgery
DX: I12.0 Hypertensive chronic kidney disease with stage 5 chronic kidney disease or end stage renal disease (principal); N18.6 End stage renal disease; D64.9 Anemia, unspecified; E66.9 Obesity, unspecified; Z98.890 Other specified postprocedural states; Z68.37 Body mass index [BMI] 37.0-37.9, adult
CPT/HCPCS: 36415; 36821; 80048; 85027; J0330; J0690; J1100; J1644; J2370; J2405; J2704; J2720; J3010; J7030; J7050; A4649

== ENCOUNTER 2020-11-11 07:28 | Observation (INO) | payer MEDICARE ==
--- NOTE | 2020-11-11 08:44 | Event Note ---
ED Screening Note Date of service: 11/11/20 Time: 08:41 ED Screening Note: 45-year-old -[place] male with end-stage renal disease on dialysis comes in stating that his 2 dialysis ports that are both clogged and one in the left chest and one in the right arm. Last use the left chest port was on Wednesday but is barely working. States the right arm port is new. Supposed to get dialysis today. This initial assessment/diagnostic orders/clinical plan/treatment(s) is/are subject to change based on patients health status, clinical progression and re- assessment by fellow clinical providers in the ED. Further treatment and workup at subsequent clinical providers discretion. Patient/guardian urged not to elope from the ED as their condition may be serious if not clinically assessed and managed. Initial orders include:
--- NOTE | 2020-11-11 09:09 | Emergency Department Report ---
ED General Adult HPI - General Chief complaint: Medical Clearance Stated complaint: HBP/CATH CLOTTED/DIALYSIS NEEDED Time Seen by Provider: 11/11/20 09:08 Source: patient Mode of arrival: Ambulatory Limitations: No Limitations - History of Present Illness Initial comments: Patient is a 45-year-old male with history of end-stage renal disease presents to emergency department for evaluation of missed dialysis this morning secondary to clots in both his right AV fistula and his left chest port. Patient states he has appointment with vascular surgery to repair his AV fistula tomorrow. Patient denies any complaints. - Related Data Previous Rx's Medication Instructions Recorded Last Taken Type Clotrimazole/Betamethasone Dip 1 applicatio TP BID #45 gram 03/11/20 Unknown Rx [Lotrisone Cream] amLODIPine 10 mg PO QDAY #30 tablet 03/11/20 08/13/20 06:00 Rx carvediloL [Coreg] 6.25 mg PO BID #60 tablet 03/11/20 08/13/20 06:00 Rx oxyCODONE /ACETAMINOPHEN [Percocet 1 tab PO Q6HR PRN 3 Days #12 tablet 07/25/20 08/05/20 08:00 Rx 5/325 mg] HYDROcodone/APAP 7.5-325 [[place] 1 each PO Q6HR PRN #30 tablet 08/13/20 Unknown Rx 7.5/325] Allergies Allergy/AdvReac Type Severity Reaction Status Date / Time No Known Allergies Allergy Verified 08/12/20 10:21 ED Review of Systems ROS: Stated complaint: HBP/CATH CLOTTED/DIALYSIS NEEDED Other details as noted in HPI Comment: All other systems reviewed and negative ED Past Medical Hx - Past Medical History Previous Medical History?: Yes Hx Hypertension: Yes (took amlodipine and carvedilol today) Hx Heart Attack/AMI: No Hx Congestive Heart Failure: No Hx Deep Vein Thrombosis: No Hx GERD: No Hx Liver Disease: No Hx Renal Disease: Yes Hx Kidney Stones: No Hx HIV: No Additional medical history: Permacath Left Chest - Surgical History Hx Coronary Stent: No - Social History Smoking Status: Current Every Day Smoker - Medications Home Medications: Home Medications Medication Instructions Recorded Confirmed Last Taken Type Clotrimazole/Betamethasone Dip 1 applicatio TP BID #45 gram 03/11/20 08/12/20 Unknown Rx [Lotrisone Cream] amLODIPine 10 mg PO QDAY #30 tablet 03/11/20 08/13/20 08/13/20 06:00 Rx carvediloL [Coreg] 6.25 mg PO BID #60 tablet 03/11/20 08/13/20 08/13/20 06:00 Rx oxyCODONE /ACETAMINOPHEN [Percocet 1 tab PO Q6HR PRN 3 Days #12 tablet 07/25/20 08/13/20 08/05/20 08:00 Rx 5/325 mg] HYDROcodone/APAP 7.5-325 [[place] 1 each PO Q6HR PRN #30 tablet 08/13/20 Unknown Rx 7.5/325] ED Physical Exam - General Limitations: No Limitations General appearance: alert, in no apparent distress - Head Head exam: Present: atraumatic, normocephalic - Eye Eye exam: Present: normal appearance - ENT ENT exam: Present: mucous membranes moist - Neck Neck exam: Present: normal inspection - Respiratory Respiratory exam: Present: normal lung sounds bilaterally. Absent: respiratory distress - Cardiovascular Cardiovascular Exam: Present: regular rate, normal rhythm - GI/Abdominal GI/Abdominal exam: Present: soft, normal bowel sounds - Rectal Rectal exam: Present: deferred - Extremities Exam Extremities exam: Present: normal inspection - Back Exam Back exam: Present: normal inspection - Neurological Exam Neurological exam: Present: alert, oriented X3 - Psychiatric Psychiatric exam: Present: normal affect, normal mood - Skin Skin exam: Present: warm, dry, intact, normal color, other (Port to left upper chest). Absent: rash ED Course Vital Signs 11/11/20 07:43 Temperature 98.6 F Pulse Rate 89 Respiratory 18 Rate Blood Pressure 164/107 [Left] O2 Sat by Pulse 100 Oximetry - Reevaluation(s) Reevaluation #1: 11/11/20 12:10 Patient evaluated by vascular surgery Dr. Moore in emergency department. ED Medical Decision Making - Lab Data Result diagrams: 11/11/20 09:02 11/11/20 09:02 Lab Results 11/11/20 11/11/20 11/11/20 Range/Units 09:02 09:02 09:02 WBC 9.0 (4.5-11.0) K/mm3 RBC 3.36 L (3.65-5.03) M/mm3 Hgb 10.6 L (11.8-15.2) gm/dl Hct 31.7 L (35.5-45.6) % MCV 94 (84-94) fl MCH 32 (28-32) pg MCHC 33 (32-34) % RDW 14.5 (13.2-15.2) % Plt Count 266 (140-440) K/mm3 Lymph % (Auto) 33.7 (13.4-35.0) % [place] % (Auto) 7.4 H (0.0-7.3) % Eos % (Auto) 3.9 (0.0-4.3) % Baso % (Auto) 0.9 (0.0-1.8) % Lymph # (Auto) 3.0 (1.2-5.4) K/mm3 [place] # (Auto) 0.7 (0.0-0.8) K/mm3 Eos # (Auto) 0.4 (0.0-0.4) K/mm3 Baso # (Auto) 0.1 (0.0-0.1) K/mm3 Seg Neutrophils % 54.1 (40.0-70.0) % Seg Neutrophils # 4.9 (1.8-7.7) K/mm3 PT 13.8 (12.2-14.9) Sec. INR 1.07 (0.87-1.13) APTT 36.0 (24.2-36.6) Sec. Sodium 136 L (137-145) mmol/L Potassium 5.9 H (3.6-5.0) mmol/L Chloride 98.2 (98-107) mmol/L Carbon Dioxide 24 (22-30) mmol/L Anion Gap 20 mmol/L BUN 49 H (9-20) mg/dL Creatinine 13.9 H (0.8-1.3) mg/dL Estimated GFR 5 ml/min BUN/Creatinine Ratio 4 % Glucose 97 (75-100) mg/dL Calcium 9.4 (8.4-10.2) mg/dL Total Bilirubin 0.30 (0.1-1.2) mg/dL AST 10 (5-40) units/L ALT 6 L (7-56) units/L Alkaline Phosphatase 50 (35-129) units/L Total Protein 7.6 (6.3-8.2) g/dL Albumin 4.1 (3.9-5) g/dL Albumin/Globulin Ratio 1.2 % Vital Signs 11/11/20 07:43 Temperature 98.6 F Pulse Rate 89 Respiratory 18 Rate Blood Pressure 164/107 [Left] O2 Sat by Pulse 100 Oximetry Critical care attestation.: If time is entered above; I have spent that time in minutes in the direct care of this critically ill patient, excluding procedure time. ED Disposition Clinical Impression: Dialysis catheter clot or failure, Dialysis AV fistula malfunction, Hyperkalemia Disposition: 09 OP ADMIT IP TO THIS HOSP Is pt being admited?: Yes Condition: Stable Referrals: PRIMARY CARE, [Primary Care Provider] - 3-5 Days
[2020-11-11 09:16] LABS: Basophils # (Auto) 0.1 K/mm3 (0.0-0.1); Basophils % (Auto) 0.9 % (0.0-1.8); Eosinophils # (Auto) 0.4 K/mm3 (0.0-0.4); Eosinophils % (Auto) 3.9 % (0.0-4.3); Hematocrit 31.7 % (35.5-45.6); Hemoglobin 10.6 gm/dl (11.8-15.2); Lymphocytes % (Auto) 33.7 % (13.4-35.0); Mean Corpuscular HGB Conc 33 % (32-34); Mean Corpuscular Volume 94 fl (84-94); Monocytes # (Auto) 0.7 K/mm3 (0.0-0.8); Monocytes % (Auto) 7.4 % (0.0-7.3); Platelet Count 266 K/mm3 (140-440); Red Blood Count 3.36 M/mm3 (3.65-5.03); Red Cell Distribution Width 14.5 % (13.2-15.2)
[2020-11-11 09:38] LABS: Albumin 4.1 g/dL (3.9-5); Calcium 9.4 mg/dL (8.4-10.2)
[2020-11-11 10:42] LABS: INR 1.07 (0.87-1.13)
[2020-11-11] MEDS ORDERED: ACETAMINOPHEN 325 MG TAB PO PRN (12:09)
--- NOTE | 2020-11-11 12:12 | History and Physical Report ---
History of Present Illness Chief complaint: My ports dont work. History of present illness: 45 YO Male with HTN, Obesity Hypoventilation Syndrome, GERD, ESRD on HD(M,W,F) presents to ED for evaluation. Pt reports "I could not get dialysis". Pt states that he could not undergo dialysis due to clogged access. Patient transported to [facility] via private vehicle for further care and evaluation of the aforementioned symptoms. The patient was seen and evaluated in the emergency department. All lab and imaging studies reviewed. Patient found to have clogged dialysis access. Vascular surgery consulted in ED for surgical intervention. Patient denies fever, chills, chest pain, palpitation, productive cough, skin rash, recent ill contacts, or known exposure to COVID-19. Prior admission on 06/10/2020 reviewed. All medication listed at time of admission has been reconciled. Past History Past Medical History: ESRD, GERD, hyperthyroidism Past Surgical History: Other (dailysis access) Social history: . denies: smoking, alcohol abuse, prescription drug abuse Family history: diabetes, hypertension Medications and Allergies Allergies Allergy/AdvReac Type Severity Reaction Status Date / Time No Known Allergies Allergy Verified 11/11/20 17:23 Home Medications Medication Instructions Recorded Confirmed Last Taken Type Clotrimazole/Betamethasone Dip 1 applicatio TP BID #45 gram 03/11/20 08/12/20 Unknown Rx [Lotrisone Cream] amLODIPine 10 mg PO QDAY #30 tablet 03/11/20 08/13/20 08/13/20 06:00 Rx carvediloL [Coreg] 6.25 mg PO BID #60 tablet 03/11/20 08/13/20 08/13/20 06:00 Rx oxyCODONE /ACETAMINOPHEN [Percocet 1 tab PO Q6HR PRN 3 Days #12 tablet 07/25/20 08/13/20 08/05/20 08:00 Rx 5/325 mg] HYDROcodone/APAP 7.5-325 [[place] 1 each PO Q6HR PRN #30 tablet 08/13/20 Unknown Rx 7.5/325] Active Meds: Active Medications Acetaminophen (Acetaminophen 325 Mg Tab) 650 mg PO Q4H PRN PRN Reason: Pain MILD(1-3)/Fever >100.5/VARGHESE Albuterol (Albuterol 2.5 Mg/3 Ml Nebu) 2.5 mg IH Q4HRT PRN PRN Reason: Shortness Of Breath Ondansetron HCl (Ondansetron 4 Mg/2 Ml Inj) 4 mg IV Q8H PRN PRN Reason: Nausea And Vomiting Sodium Chloride (Sodium Chloride 0.9% 10 Ml Flush Syringe) 10 ml IV BID CORINNE Sodium Chloride (Sodium Chloride 0.9% 10 Ml Flush Syringe) 10 ml IV PRN PRN PRN Reason: LINE FLUSH Review of Systems Constitutional: no weight loss, no weight gain, no fever, no chills Ears, nose, mouth and throat: no ear pain, no ear discharge, no decreased hearing, no nose pain, no nasal discharge, no sinus pressure Cardiovascular: no chest pain, no orthopnea, no rapid/irregular heart beat, no edema, no lightheadedness Respiratory: no cough, no excessive sputum, no hemoptysis, no shortness of breath Gastrointestinal: no abdominal pain, no vomiting, no diarrhea, no constipation, no change in bowel habits Genitourinary Male: no hematuria, no flank pain, no discharge, no urinary freq uency, no nocturia, no incontinence Rectal: no pain, no incontinence, no bleeding Musculoskeletal: no neck stiffness, no neck pain, no shooting arm pain, no shooting leg pain Integumentary: no rash, no pruritis, no sores, no wounds, no jaundice, no boils Neurological: no head injury, no transient paralysis, no paralysis, no weakness, no parathesias, no numbness, no seizures, no tremors Psychiatric: no anxiety, no memory loss, no sleep disturbances, no insomnia, no hypersomnia, no change in libido, no suicidal ideation, no disorientation Endocrine: no cold intolerance, no heat intolerance, no excessive thirst, no polyuria, no nocturia, no flushing Hematologic/Lymphatic: no easy bruising, no easy bleeding, no lymphadenopathy Allergic/Immunologic: no allergic rhinitis, no persistent infections, no anaphylaxis Exam - Constitutional Vitals: Temp Pulse Resp BP Pulse Ox 98.6 F 89 18 164/107 100 11/11/20 07:43 11/11/20 07:43 11/11/20 07:43 11/11/20 07:43 11/11/20 07:43 General appearance: Present: mild distress, obese - EENT Eyes: Present: PERRL ENT: hearing intact, clear oral mucosa - Neck Neck: Present: supple, normal ROM - Respiratory Respiratory effort: normal Respiratory: bilateral: CTA - Cardiovascular Heart Sounds: Present: S1 & S2. Absent: rub, click - Extremities Extremities: pulses symmetrical, No edema Peripheral Pulses: within normal limits - Abdominal General gastrointestinal: Present: soft, non-tender, non-distended, normal bowel sounds Male genitourinary: Present: normal - Integumentary Integumentary: Present: clear, warm, dry - Musculoskeletal Musculoskeletal: gait normal, strength equal bilaterally - Psychiatric Psychiatric: appropriate mood/affect, intact judgment & insight - Neurologic Neurologic: CNII-XII intact, moves all extremities Results - Labs CBC & Chem 7: 11/11/20 09:02 11/11/20 09:02 Labs: Abnormal lab results 11/11/20 11/11/20 Range/Units 09:02 09:02 RBC 3.36 L (3.65-5.03) M/mm3 Hgb 10.6 L (11.8-15.2) gm/dl Hct 31.7 L (35.5-45.6) % [place] % (Auto) 7.4 H (0.0-7.3) % Sodium 136 L (137-145) mmol/L Potassium 5.9 H (3.6-5.0) mmol/L BUN 49 H (9-20) mg/dL Creatinine 13.9 H (0.8-1.3) mg/dL ALT 6 L (7-56) units/L Assessment and Plan - Patient Problems (1) ESRD (end stage renal disease) Current Visit: Yes Status: Acute Plan to address problem: Nephrology team consulted, dialysis as per renal team pending revision of dialysis access. (2) Dialysis AV fistula malfunction Current Visit: Yes Status: Acute Qualifiers: Encounter type: initial encounter Qualified Code(s): T82.590A - Other mechanical complication of surgically created arteriovenous fistula, initial encounter Plan to address problem: Vascular surgery consulted, further care as per surgical team. (3) Obesity hypoventilation syndrome Current Visit: No Status: Acute Plan to address problem: Balanced diet, increased physical activity at discharge, outpatient pulmonary F/U for sleep study (4) Hypertension Current Visit: No Status: Chronic Qualifiers: Hypertension type: essential hypertension Qualified Code(s): I10 - Essential (primary) hypertension Plan to address problem: Monitor bp q shift, continue medical management. (5) GERD (gastroesophageal reflux disease) Current Visit: Yes Status: Acute Qualifiers: Esophagitis presence: without esophagitis Qualified Code(s): K21.9 - Gastro-esophageal reflux disease without esophagitis Plan to address problem: PPI therapy, supportive care. (6) DVT prophylaxis Current Visit: No Status: Acute Plan to address problem: SCD to BLE while in bed, Pt is ambulatory
[2020-11-11] MEDS ORDERED: ONDANSETRON 4 MG/2 ML INJ IV PRN (12:30)
[2020-11-11] MEDS ORDERED: ALBUTEROL 2.5 MG/3 ML NEBU IH PRN (12:30)
--- NOTE | 2020-11-11 14:46 | Consultation ---
History of Present Illness - Reason for Consult Consult date: 11/11/20 Complications of Dialysis Access Requesting physician: SHIMON MCFADDEN - History of Present Illness The patient is a 45-year-old male with history of end-stage renal disease who had creation of a right arm brachiocephalic arteriovenous fistula. He subsequently required intervention to assist with maturation of the fistula including coil embolization of sidebranches as well as angioplasty and stent of the right subclavian vein. He was cleared to have use of the fistula and has had several successful cannulations of the fistula however they were unable to successfully access the fistula during his last 2 sessions. They attempted to use his permacath after an unsuccessful cannulation attempts and found that the permacath was clotted. The patient has no additional complaints at this time. Past History Past Medical History: dialysis, heart failure, hypertension Past Surgical History: Other (Creation of right AVF) Social history: no significant social history Medications and Allergies Allergies Allergy/AdvReac Type Severity Reaction Status Date / Time No Known Allergies Allergy Verified 08/12/20 10:21 Home Medications Medication Instructions Recorded Confirmed Last Taken Type Clotrimazole/Betamethasone Dip 1 applicatio TP BID #45 gram 03/11/20 08/12/20 Unknown Rx [Lotrisone Cream] amLODIPine 10 mg PO QDAY #30 tablet 03/11/20 08/13/20 08/13/20 06:00 Rx carvediloL [Coreg] 6.25 mg PO BID #60 tablet 03/11/20 08/13/20 08/13/20 06:00 Rx oxyCODONE /ACETAMINOPHEN [Percocet 1 tab PO Q6HR PRN 3 Days #12 tablet 07/25/20 08/13/20 08/05/20 08:00 Rx 5/325 mg] HYDROcodone/APAP 7.5-325 [[place] 1 each PO Q6HR PRN #30 tablet 08/13/20 Unknown Rx 7.5/325] Active Meds: Active Medications Acetaminophen (Acetaminophen 325 Mg Tab) 650 mg PO Q4H PRN PRN Reason: Pain MILD(1-3)/Fever >100.5/VARGHESE Albuterol (Albuterol 2.5 Mg/3 Ml Nebu) 2.5 mg IH Q4HRT PRN PRN Reason: Shortness Of Breath Ondansetron HCl (Ondansetron 4 Mg/2 Ml Inj) 4 mg IV Q8H PRN PRN Reason: Nausea And Vomiting Sodium Chloride (Sodium Chloride 0.9% 10 Ml Flush Syringe) 10 ml IV BID CORINNE Sodium Chloride (Sodium Chloride 0.9% 10 Ml Flush Syringe) 10 ml IV PRN PRN PRN Reason: LINE FLUSH Review of Systems All systems: negative Exam - Constitutional Vitals: Temp Pulse Resp BP Pulse Ox 98 F 90 18 155/101 98 11/11/20 13:40 11/11/20 13:40 11/11/20 13:40 11/11/20 13:40 11/11/20 13:40 General appearance: Present: no acute distress - Neck Neck: Present: supple (Left IJ Permacath without overt evidence of infection) - Cardiovascular Rhythm: regular - Extremities Extremities: abnormal (right arm AVF with palpable thrill, slight hematoma over mid-fistula with ecchymosis) - Abdominal Male genitourinary: Present: deferred - Rectal Rectal Exam: deferred Results - Labs CBC & Chem 7: 11/11/20 09:02 11/11/20 09:02 Labs: Abnormal lab results 11/11/20 11/11/20 Range/Units 09:02 09:02 RBC 3.36 L (3.65-5.03) M/mm3 Hgb 10.6 L (11.8-15.2) gm/dl Hct 31.7 L (35.5-45.6) % [place] % (Auto) 7.4 H (0.0-7.3) % Sodium 136 L (137-145) mmol/L Potassium 5.9 H (3.6-5.0) mmol/L BUN 49 H (9-20) mg/dL Creatinine 13.9 H (0.8-1.3) mg/dL ALT 6 L (7-56) units/L Assessment and Plan The patient presents with complaints of difficulty accessing his right arm AVF and a thrombosed Left IJ permacath. He is in need of a right arm fistulagram with possible intervention as well as exchange of his permacath. I have explained all risk and benefits as well as the alternatives and the patient has expressed understanding and agrees to proceed.
[2020-11-11] MEDS ORDERED: LIDOCAINE 1%/EPINEPHRINE 1:100,000 VIAL (20 ML) INFILTRATI ONE (15:10)
[2020-11-11] MEDS ORDERED: HEPARIN/NS 5000 UNIT/500ML 500 ML IR ONE (15:11)
[2020-11-11] MEDS ORDERED: SODIUM CHLORIDE 0.9% 250ML 250 ML ONE (15:11)
[2020-11-11] MEDS ORDERED: ceFAZolin/Water 2 GM/20 ML 2 GM/20 ML SYRINGE IV ONE (15:11)
[2020-11-11] MEDS ORDERED: MIDAZOLAM 2 MG/2 ML INJ ONE (15:15)
[2020-11-11] MEDS ORDERED: fentaNYL 100 MCG/2 ML INJ ONE (15:15)
[2020-11-11] MEDS: HEPARIN 10,000 UNITS/10 ML VIAL ONE ×2 (15:56→15:57)
--- NOTE | 2020-11-11 16:07 | Operative Report ---
Operative Report Operative Report: EXAM: 1. Fluoroscopic guided exchange of a left internal jugular tunneled cuffed hemodialysis catheter. 2. Superior venacava venography DATE: 11/11/2020 INDICATION: Permcath malfunction. MEDICATIONS: Please see nursing report for full details. JUNIOR LOAN PROCESSOR: BRUNO RODRIGUEZ MD DEVICES: 27 cm tip to cuff 15 Fr dual lumen hemodialysis catheter ; existing catheter was a 27 cm tip to cuff dual lumen hemodialysis catheter CONTRAST: Less than 10 mL nonionic contrast PROCEDURE: The risks, benefits, and alternatives were discussed and informed consent was obtained. The patient was transported to the angiography suite in satisfactory/stable condition and was transported onto the angiography table. The patient was prepped and draped in a sterile fashion. The existing PermCath was prepped and draped in a sterile fashion. Heparin was removed from the lumens and then saline was used to flush the lumens. A stiff angled Glidewire was advanced through one of the existing PermCath lumens into the IVC. Lidocaine was used to anesthetize the existing PermCath dermatotomy. Using a hemostat, blunt dissection was used to free the existing cuff. The catheter was partially retracted. Digital subtraction venography was performed through the other lumen. A second stiff angled Glidewire was advanced through the other lumen of the Permcath and into the IVC. Over the 0.035 inch wires, the existing PermCath was removed and the wires were cleaned with ChloraPrep. A new PermCath was advanced over the wire and position centrally under fluoroscopic guidance. 2-0 Ethilon suture was used to secure the catheter at the dermatotomy. The catheter was charged with heparin 1000 units/mL of space. Sterile dressing and Biopatch applied. The patient was transferred from the angiography suite back to the floor in stable condition. FINDINGS: 1. Excellent flow was obtained through the dialysis catheter with 20 mL syringes. 2. The new catheter tip is in the right atrium. 3. Superior vena cava venography demonstrates prompt flow without filling defects. IMPRESSION: 1. Successful fluoroscopic guided replacement of a left internal jugular tunneled cuffed hemodialysis catheter.
[2020-11-12] MEDS ORDERED: INSULIN REGULAR, HUMAN 100 UNITS/1 ML IV ONE (06:00)
[2020-11-12] MEDS ORDERED: DEXTROSE 50% IN WATER (25GM) 50 ML SYRINGE IV ONE (06:34)
[2020-11-12] MEDS: SODIUM POLYSTYRENE 15 GM/60 ML ORAL LIQD PO SCH ×2 (06:47→10:18)
[2020-11-12] MEDS ORDERED: SODIUM BICARB 8.4% 50 MEQ/50 ML SYRINGE IV NR (09:15)
[2020-11-12] MEDS ORDERED: CALCIUM GLUCONATE 2,000 MG in SODIUM CHLORIDE 0.9% 100 ML IV ONE (09:20)
[2020-11-12 15:48] LABS: Hepatitis B Surface Antigen Non-Reactive (Negative); Hepatitis C Virus Antibody Non-Reactive (NonReactive)
[2020-11-12] MEDS ORDERED: SODIUM CHLORIDE 0.9% 100 ML IV PRN (15:51)
[2020-11-12] MEDS ORDERED: HYDROcodone/ACETAMINOPHEN 7.5-325MG TAB PO PRN (16:14)
--- NOTE | 2020-11-12 16:14 | Discharge Summary ---
Providers - Providers Date of Admission: 11/11/20 12:09 Date of discharge: 11/12/20 Attending physician: GAUTAM SABA 11/11/20 12:12 Consult to Physician [CONS] Routine Comment: Consulting Provider: OFELIA BEASLEY Physician Instructions: Reason For Exam: esrd 11/11/20 12:13 Consult to Physician [CONS] Routine Comment: Consulting Provider: BRUNO RODRIGUEZ Physician Instructions: Reason For Exam: dialysis access malfunction Primary care physician: POLYMERIZATION SUPERVISOR Hospitalization Condition: Stable Hospital course: The patient is a 45-year-old male with history of end-stage renal disease who a right arm brachiocephalic arteriovenous fistula for HD, however it was unable to successfully access at the HD clinic during his last 2 sessions. They attempted to use his permacath after an unsuccessful cannulation attempts and found that the permacath was clotted. So patient was sent hospital for further evaluation and management. Vascular surgeon was consulted for an immediate PermCath placement. On admission patient also noted to be hyperkalemic and was treated with hyperkalemia protocol. His blood pressure medications were resumed to better control his BP. Following the PermCath placement patient was planned for hemodialysis and he will be discharged home following the dialysis if clinically remains stable. Discharge plan and management was thoroughly discussed with the patient and he was agreeable with the plan. Patient was further recommended to follow-up with the vascular surgeon about his fistula as an outpatient. Disposition: - TO HOME OR SELFCARE Final Discharge Diagnosis (Prints w/discharge instructions): End stage renal disease needing dialysis,. Dialysis AV fistula malfunction status post PermCath placement. Hypertension. GERD. Obesity Core Measure Documentation - Palliative Care Palliative Care/ Comfort Measures: Not Applicable - Core Measures Any of the following diagnoses?: history only Exam - Physical Exam Narrative exam: GENERAL: well-developed and obese -[place] male lying on bed appeared to be in no discomfort. HEENT: Normocephalic. Atraumatic. No conjunctival congestion or icterus. Patient has moist mucous membranes. NECK: Supple. Trachea midline. CHEST/LUNGS: Clear to auscultated bilaterally, breathing nonlabored. No wheezes crackles or rhonchi. Left sided PermCath in place in the chest HEART/CARDIOVASCULAR: Regular in rate and rhythm. S1 and S2 positive. ABDOMEN: Abdomen is soft, nontender. Patient has normal bowel sounds. SKIN: There is no rash. Warm and dry. NEURO: No focal motor deficit. Follows command. MUSCULOSKELETAL: No joint effusion or tenderness. EXTRIMITY: No edema, no cyanosis or clubbing. PSYCH: Cooperative. - Constitutional Vitals: Temp Pulse Resp BP Pulse Ox 97.3 F L 94 H 20 165/103 100 11/12/20 11:26 11/12/20 11:26 11/12/20 11:26 11/12/20 11:11/12/20 11:26 Plan Activity: advance as tolerated Weight Bearing Status: Weight Bear as Tolerated Diet: renal Wound: keep clean and dry, per your surgeon's advice Special Instructions: record daily BP diary Additional Instructions: Follow-up with vascular surgeon outpatient for your dialysis access/fistulla management. Follow up with: PRIMARY MD LYNETTE [Primary Care Provider] - 3-5 Days
[2020-11-12] MEDS ORDERED: hydrALAZINE 20 MG/1 ML INJ IV ONE (19:35)
[2020-11-12 19:42] VITALS: BP 169/101
[2020-11-12] MEDS ORDERED: CLOTRIMAZOLE/BETAMETHASONE CREAM 15 GM TP SCH (22:00)
[2020-11-12] MEDS ORDERED: carvediloL 6.25 MG TAB PO SCH (22:00)
[2020-11-13] MEDS ORDERED: amLODIPine 10 MG TAB PO SCH (10:00)
[2020-11-13] MEDS ORDERED: amLODIPine 5 MG TAB PO SCH (10:00)
== END 2020-11-12 21:48 | disposition home or self-care (01) ==
LOC: ED 07:28 → 3A 12:09
PROVIDERS: ADMIT Internal Medicine; ATTEND Internal Medicine
DX: T82.41XA Breakdown (mechanical) of vascular dialysis catheter, initial encounter (principal); I12.0 Hypertensive chronic kidney disease with stage 5 chronic kidney disease or end stage renal disease; N18.6 End stage renal disease; E87.5 Hyperkalemia; F17.210 Nicotine dependence, cigarettes, uncomplicated; K21.9 Gastro-esophageal reflux disease without esophagitis; E05.90 Thyrotoxicosis, unspecified without thyrotoxic crisis or storm; E66.2 Morbid (severe) obesity with alveolar hypoventilation; Z98.890 Other specified postprocedural states; Z68.36 Body mass index [BMI] 36.0-36.9, adult; Z79.899 Other long term (current) drug therapy
CPT/HCPCS: 36415; 36581; 77001; 80048; 80053; 80074; 84132; 85025; 85610; 85730; 87641; 96365; 96375; 99284; 99406; C1750; C1769; G0257; G0378; J0360; J0610; J0690; J1644; J2250; J3010; J7050; J1815; Q9967

== ENCOUNTER 2021-09-15 06:10 | Observation (INO) | payer MEDICARE ==
--- NOTE | 2021-09-15 09:08 | XRay Report ---
XR chest routine 2V INDICATION / CLINICAL INFORMATION: shortness of breath COMPARISON: September 02 2021 FINDINGS: SUPPORT DEVICES: None. HEART / MEDIASTINUM: No significant abnormality. LUNGS / PLEURA: Lungs are similar to prior. Costophrenic sulci are sharp. No pneumothorax. ADDITIONAL FINDINGS: Vascular stent projecting over the right lung apex is unchanged. IMPRESSION: 1. No acute findings. Signer Name: Loco Abreu MD Signed: 09/15/2021 9:04 AM Workstation Name: [id number]
[2021-09-15] MEDS ORDERED: BENZONATATE 100 MG CAP PO ONE (09:36)
[2021-09-15] MEDS ORDERED: IPRATROPIUM/ALBUTEROL SULFATE 3 ML AMPUL.NEB IH ONE (09:36)
--- NOTE | 2021-09-15 09:42 | Emergency Department Report ---
HPI - General Chief Complaint: Dyspnea/Respdistress Time Seen by Provider: 09/15/21 09:00 - HPI HPI: MSE 6 The patient is a 46-year-old male present with chief complaint of cough and shortness of breath. The patient states for approximately 1 month he has had a cough occasionally productive of green sputum. Patient admits to shortness of breath for same period of time. Patient denies history of fever. The patient has a history end-stage renal disease, last dialyzed 09/12/2021. The patient states she went to dialysis earlier today however he came to the emergency department before he was dialyzed because he was waiting in the waiting room for so long. Patient also admits to to 3 months history of his legs just jerking uncontrollably while he sleeps. Patient states he received his first dose of his Pfizer Covid vaccine approximately 7 months ago but has not received any subsequent doses ED Past Medical Hx - Past Medical History Previous Medical History?: Yes Hx Hypertension: Yes Hx Renal Disease: Yes Additional medical history: Permacath Left Chest - Surgical History Past Surgical History?: Yes Hx Coronary Stent: No Additional Surgical History: Permacath-removed. Right upper extremity fistula - Family History Family history: no significant - Social History Smoking Status: Current Every Day Smoker (1/20 pack/day) Substance Use Type: None (Denies illicit drug use) - Medications Home Medications: Home Medications Medication Instructions Recorded Confirmed Last Taken Type carvediloL [Coreg] 6.25 mg PO BID #60 tablet 03/11/20 09/03/21 08/13/20 06:00 Rx AtorvaSTATin [Lipitor] 20 mg PO QHS 09/03/21 09/03/21 Unknown History Ferrous Sulfate [Ferrous Sulfate 324 mg PO DAILY #30 tab 09/04/21 Unknown Rx 324 MG] Nicotine [Habitrol] 14 mg TD QDAY #30 patch 09/04/21 Unknown Rx Pantoprazole [Protonix] 40 mg PO QDAY #30 tablet 09/04/21 Unknown Rx amLODIPine 10 mg PO QDAY #30 tablet 09/04/21 Unknown Rx ED Review of Systems ROS: Stated complaint: SOB,WEAK LEGS,CONSTIPATION,COUGH Other details as noted in HPI Constitutional: denies: fever Eyes: denies: eye pain ENT: congestion Respiratory: cough, shortness of breath Cardiovascular: denies: chest pain Endocrine: no symptoms reported Gastrointestinal: denies: vomiting Genitourinary: denies: dysuria Musculoskeletal: denies: back pain Neurological: denies: headache Physical Exam - Physical Exam Vital Signs: Vital Signs 09/15/21 08:29 Temperature 98.3 F Pulse Rate 100 H Respiratory 16 Rate Blood Pressure 142/96 [Left] O2 Sat by Pulse 100 Oximetry Physical Exam: GENERAL: The patient is well-developed well-nourished male sitting in chair not appearing to be in acute distress HEENT: Normocephalic. Atraumatic. Extraocular motions are intact. Patient has moist mucous membranes. NECK: Supple. Trachea midline CHEST/LUNGS: Clear to auscultation. There is no respiratory distress noted. Occasional cough HEART/CARDIOVASCULAR: Regular. There is no tachycardia. There is no gallop rub or murmur. ABDOMEN: Abdomen is soft, nontender. Patient has normal bowel sounds. There is no abdominal distention. SKIN: There is no rash. There is no edema. There is no diaphoresis. NEURO: The patient is awake, alert, and oriented. The patient is cooperative. The patient has no focal neurologic deficits. The patient has normal speech. GCS 15 MUSCULOSKELETAL: There is no evidence of acute injury. ED Course Vital Signs 09/15/21 08:29 Temperature 98.3 F Pulse Rate 100 H Respiratory 16 Rate Blood Pressure 142/96 [Left] O2 Sat by Pulse 100 Oximetry - Consultations Consultation #1: 09/15/21 10:47 Case discussed with operator automated process Dr. Bear- will arrange for hemodialysis ED Medical Decision Making - Lab Data Result diagrams: 09/15/21 09:35 09/15/21 09:35 Laboratory Tests 09/15/21 09/15/21 09:35 09:35 WBC 6.8 RBC 2.60 L Hgb 8.0 L Hct 25.0 L MCV 96 H MCH 31 MCHC 32 RDW 16.5 H Plt Count 226 Lymph % (Auto) 25.7 [place] % (Auto) 9.1 H Eos % (Auto) 3.9 Baso % (Auto) 0.8 Lymph # (Auto) 1.7 [place] # (Auto) 0.6 Eos # (Auto) 0.3 Baso # (Auto) 0.1 Seg Neutrophils % 60.5 Seg Neutrophils # 4.1 Sodium 140 Potassium 5.5 H Chloride 100.7 Carbon Dioxide 24 Anion Gap 21 BUN 47 H Creatinine 12.3 H Estimated GFR 5 BUN/Creatinine Ratio 4 Glucose 111 H Calcium 9.4 Total Bilirubin 0.50 Direct Bilirubin < 0.2 Indirect Bilirubin 0.3 AST 21 ALT 66 H Alkaline Phosphatase 70 Total Protein 7.1 Albumin 3.8 L Albumin/Globulin Ratio 1.2 - Radiology Data Radiology results: report reviewed (Chest x-ray), image reviewed (Chest x-ray) [facility] [address] [place] [address] XRay Report Signed Patient: MILLER FERRARO MR#: [id number] : 1975 Acct:[id number] Age/Sex: 46 / M ADM Date: 09/15/21 Loc: ED Attending Dr: Ordering Physician: MARK VERGARA Date of Service: 09/15/21 Procedure(s): XR chest routine 2V Accession Number(s): [id number] cc: MARK VERGARA Fluoro Time In Minutes: XR chest routine 2V INDICATION / CLINICAL INFORMATION: shortness of breath COMPARISON: September 02 2021 FINDINGS: SUPPORT DEVICES: None. HEART / MEDIASTINUM: No significant abnormality. LUNGS / PLEURA: Lungs are similar to prior. Costophrenic sulci are sharp. No pneumothorax. ADDITIONAL FINDINGS: Vascular stent projecting over the right lung apex is unchanged. IMPRESSION: 1. No acute findings. Signer Name: Loco Abreu MD Signed: 09/15/2021 9:04 AM Workstation Name: [id number] Transcribed By: CS Dictated By: Loco Abreu MD Electronically Authenticated By: Loco Abreu MD Signed Date/Time: 09/15/21903 DD/ 1 TD/TT: Print Cancel - Differential Diagnosis Pneumonia, bronchitis, COVID-19, restless leg syndrome Critical care attestation.: If time is entered above; I have spent that time in minutes in the direct care of this critically ill patient, excluding procedure time. ED Disposition Clinical Impression: ESRD needing dialysis, Hyperkalemia Disposition: ADMITTED INPATIENT Is pt being admited?: Yes Does the pt Need Aspirin: No Condition: Fair Referrals: PRIMARY CARE, [Primary Care Provider] - 3-5 Days Time of Disposition: 11:06 (Hospitalist called (Dr. Moore))
[2021-09-15 09:58] LABS: Basophils # (Auto) 0.1 K/mm3 (0.0-0.1); Basophils % (Auto) 0.8 % (0.0-1.8); Eosinophils # (Auto) 0.3 K/mm3 (0.0-0.4); Eosinophils % (Auto) 3.9 % (0.0-4.3); Lymphocytes # (Auto) 1.7 K/mm3 (1.2-5.4); Lymphocytes % (Auto) 25.7 % (13.4-35.0); Mean Corpuscular HGB Conc 32 % (32-34); Mean Corpuscular Volume 96 fl (84-94); Monocytes # (Auto) 0.6 K/mm3 (0.0-0.8); Monocytes % (Auto) 9.1 % (0.0-7.3); Platelet Count 226 K/mm3 (140-440); Red Cell Distribution Width 16.5 % (13.2-15.2)
[2021-09-15 10:21] LABS: Alanine Aminotransferase 66 units/L (7-56); Albumin 3.8 g/dL (3.9-5); Blood Urea Nitrogen 47 mg/dL (9-20); Calcium 9.4 mg/dL (8.4-10.2); Hemolysis Index 2
[2021-09-15 10:25] LABS: BUN/Creatinine Ratio 4; Bilirubin,Direct < 0.2 mg/dL (0-0.2)
[2021-09-15] MEDS ORDERED: SODIUM CHLORIDE 0.9% 100 ML IV PRN (11:00)
--- NOTE | 2021-09-15 12:06 | History and Physical Report ---
History of Present Illness Date of examination: 09/15/21 Date of admission: 09/15/2021 Chief complaint: Cough and shortness of breath for 2 days History of present illness: 46-year-old male with history of end-stage renal disease on hemodialysis, hyperlipidemia, hypertension and GERD presents with cough and shortness of breath of 1 month duration. Cough productive of green sputum. No fever. Patient was last dialyzed on 09/12/2021. Patient went to dialysis center but somehow change her mind and came to the emergency room. Patient has 3 months history of his legs jerking uncontrollably while he sleeps. Patient received his first Pfizer vaccine several months ago but did not take the subsequent doses. The patient is a 46-year-old male present with chief complaint of cough and shortness of breath. The patient states for approximately 1 month he has had a cough occasionally productive of green sputum. Patient admits to shortness of breath for same period of time. Patient denies history of fever. The patient has a history end-stage renal disease, last dialyzed 09/12/2021. The patient states she went to dialysis earlier today however he came to the emergency department before he was dialyzed because he was waiting in the waiting room for so long. Patient also admits to to 3 months history of his legs just jerking uncontrollably while he sleeps. Patient states he received his first dose of his Pfizer Covid vaccine approximately 7 months ago but has not received any subsequent doses - Past Medical History Previous Medical History?: Yes Hx Hypertension: Yes Hx Renal Disease: Yes Additional medical history: Permacath Left Chest - Surgical History Past Surgical History?: Yes Hx Coronary Stent: No Additional Surgical History: Permacath-removed. Right upper extremity fistula - Family History Family history: no significant - Social History Smoking Status: Current Every Day Smoker (1/20 pack/day) Substance Use Type: None (Denies illicit drug use) - Medications Home Medications: Home Medications Medication Instructions Recorded Confirmed Last Taken Type carvediloL [Coreg] 6.25 mg PO BID #60 tablet 03/11/20 09/03/21 08/13/20 06:00 Rx AtorvaSTATin [Lipitor] 20 mg PO QHS 09/03/21 09/03/21 Unknown History Ferrous Sulfate [Ferrous Sulfate 324 mg PO DAILY #30 tab 09/04/21 Unknown Rx 324 MG] Nicotine [Habitrol] 14 mg TD QDAY #30 patch 09/04/21 Unknown Rx Pantoprazole [Protonix] 40 mg PO QDAY #30 tablet 09/04/21 Unknown Rx amLODIPine 10 mg PO QDAY #30 tablet 09/04/21 Unknown Rx Medications and Allergies Allergies Allergy/AdvReac Type Severity Reaction Status Date / Time atorvastatin AdvReac Itching Verified 09/15/21 13:35 Home Medications Medication Instructions Recorded Confirmed Last Taken Type carvediloL [Coreg] 6.25 mg PO BID #60 tablet 03/11/20 09/16/21 09/14/21 Rx Ferrous Sulfate [Ferrous Sulfate 324 mg PO DAILY #30 tab 09/04/21 09/16/21 09/14/21 Rx 324 MG] Pantoprazole [Protonix] 40 mg PO QDAY #30 tablet 09/04/21 09/16/21 09/14/21 Rx amLODIPine 10 mg PO QDAY #30 tablet 09/04/21 09/16/21 09/14/21 Rx Albuterol Sulfate [Proventil Hfa] 2 puff IH QDAY PRN 09/15/21 09/16/21 09/14/21 History Active Meds: Active Medications Epoetin Suresh-epbx (Epoetin Suresh-Epbx 10,000 Unit/1 Ml Vial) 10,000 unit IV MIKO PRN PRN Reason: hemodialysis Sodium Chloride (Nacl 0.9%) 100 mls @ 999 mls/hr IV MIKO PRN PRN Reason: Hypotension Exam - Constitutional Vitals: Temp Pulse Resp BP Pulse Ox 98.1 F 91 H 28 H 147/91 100 09/15/21 11:52 09/15/21 11:35 09/15/21 11:43 09/15/21 11:46 09/15/21 11:46 General appearance: Present: no acute distress, well-nourished - EENT Eyes: Present: PERRL ENT: hearing intact, clear oral mucosa - Neck Neck: Present: supple, normal ROM - Respiratory Respiratory effort: normal Respiratory: bilateral: CTA, rhonchi (Scattered) - Cardiovascular Heart rate: 78 Rhythm: regular Heart Sounds: Present: S1 & S2. Absent: rub, click - Extremities Extremities: pulses symmetrical, No edema Extremity abnormal: other (Lower extremity muscle spasms) Peripheral Pulses: within normal limits - Abdominal General gastrointestinal: Present: soft, non-tender, non-distended, normal bowel sounds Male genitourinary: Present: normal - Integumentary Integumentary: Present: clear, warm, dry - Musculoskeletal Musculoskeletal: gait normal, strength equal bilaterally - Psychiatric Psychiatric: appropriate mood/affect, intact judgment & insight - Neurologic Neurologic: CNII-XII intact, moves all extremities Results - Labs CBC & Chem 7: 09/16/21 05:09 09/16/21 05:09 Labs: Laboratory Last Values WBC 6.8 K/mm3 (4.5-11.0) 09/15/21 09:35 RBC 2.60 M/mm3 (3.65-5.03) L 09/15/21 09:35 Hgb 8.0 gm/dl (11.8-15.2) L 09/15/21 09:35 Hct 25.0 % (35.5-45.6) L 09/15/21 09:35 MCV 96 fl (84-94) H 09/15/21 09:35 MCH 31 pg (28-32) 09/15/21 09:35 MCHC 32 % (32-34) 09/15/21 09:35 RDW 16.5 % (13.2-15.2) H 09/15/21 09:35 Plt Count 226 K/mm3 (140-440) 09/15/21 09:35 Lymph % (Auto) 25.7 % (13.4-35.0) 09/15/21 09:35 Gates % (Auto) 9.1 % (0.0-7.3) H 09/15/21 09:35 Eos % (Auto) 3.9 % (0.0-4.3) 09/15/21 09:35 Baso % (Auto) 0.8 % (0.0-1.8) 09/15/21 09:35 Lymph # (Auto) 1.7 K/mm3 (1.2-5.4) 09/15/21 09:35 Gates # (Auto) 0.6 K/mm3 (0.0-0.8) 09/15/21 09:35 Eos # (Auto) 0.3 K/mm3 (0.0-0.4) 09/15/21 09:35 Baso # (Auto) 0.1 K/mm3 (0.0-0.1) 09/15/21 09:35 Seg Neutrophils % 60.5 % (40.0-70.0) 09/15/21 09:35 Seg Neutrophils # 4.1 K/mm3 (1.8-7.7) 09/15/21 09:35 Sodium 140 mmol/L (137-145) 09/15/21 09:35 Potassium 5.5 mmol/L (3.6-5.0) H 09/15/21 09:35 Chloride 100.7 mmol/L (98-107) 09/15/21 09:35 Carbon Dioxide 24 mmol/L (22-30) 09/15/21 09:35 Anion Gap 21 mmol/L 09/15/21 09:35 BUN 47 mg/dL (9-20) H 09/15/21 09:35 Creatinine 12.3 mg/dL (0.8-1.3) H 09/15/21 09:35 Estimated GFR 5 ml/min 09/15/21 09:35 BUN/Creatinine Ratio 4 % 09/15/21 09:35 Glucose 111 mg/dL (75-100) H 09/15/21 09:35 Calcium 9.4 mg/dL (8.4-10.2) 09/15/21 09:35 Total Bilirubin 0.50 mg/dL (0.1-1.2) 09/15/21 09:35 Direct Bilirubin < 0.2 mg/dL (0-0.2) 09/15/21 09:35 Indirect Bilirubin 0.3 mg/dL 09/15/21 09:35 AST 21 units/L (5-40) 09/15/21 09:35 ALT 66 units/L (7-56) H 09/15/21 09:35 Alkaline Phosphatase 70 units/L (35-129) 09/15/21 09:35 Total Protein 7.1 g/dL (6.3-8.2) 09/15/21 09:35 Albumin 3.8 g/dL (3.9-5) L 09/15/21 09:35 Albumin/Globulin Ratio 1.2 % 09/15/21 09:35 Short CBC 09/15/21 09/16/21 Range/Units 09:35 05:09 WBC 6.8 7.5 (4.5-11.0) K/mm3 Hgb 8.0 L 7.7 L (11.8-15.2) gm/dl Hct 25.0 L 23.8 L (35.5-45.6) % Plt Count 226 231 (140-440) K/mm3 BMP 09/15/21 09/16/21 09:35 05:09 Sodium 140 137 Potassium 5.5 H 6.2 H* Chloride 100.7 100.4 Carbon Dioxide 24 17 L D BUN 47 H 57 H Creatinine 12.3 H 13.8 H Glucose 111 H 111 H Calcium 9.4 8.6 Liver Function 09/15/21 09/16/21 Range/Units 09:35 05:09 Total Bilirubin 0.50 0.50 (0.1-1.2) mg/dL Direct Bilirubin < 0.2 (0-0.2) mg/dL AST 21 17 (5-40) units/L ALT 66 H 52 (7-56) units/L Alkaline Phosphatase 70 65 (35-129) units/L Albumin 3.8 L 3.4 L (3.9-5) g/dL Assessment and Plan Advance Directives: Yes - Patient Problems (1) Volume overload Current Visit: Yes Status: Acute Plan to address problem: Patient did get emergent hemodialysis Nephrology consulted (2) Hyperkalemia Current Visit: Yes Status: Acute Plan to address problem: Treated in the emergency room Needs hemodialysis (3) End-stage renal disease needing dialysis Current Visit: Yes Status: Chronic Plan to address problem: Nephrology consulted (4) Acute bronchitis Current Visit: Yes Status: Acute Plan to address problem: Rule out Covid IV antibiotics IV Decadron (5) Hypertension Current Visit: Yes Status: Chronic Qualifiers: Hypertension type: primary hypertension Qualified Code(s): I10 - Essential (primary) hypertension Plan to address problem: Continue antihypertensives and adjust medications as necessary (6) Hyperlipidemia Current Visit: Yes Status: Chronic Qualifiers: Hyperlipidemia type: mixed hyperlipidemia Qualified Code(s): E78.2 - Mixed hyperlipidemia Plan to address problem: Continue statins (7) GERD (gastroesophageal reflux disease) Current Visit: Yes Status: Chronic Qualifiers: Esophagitis presence: without esophagitis Qualified Code(s): K21.9 - Gastro-esophageal reflux disease without esophagitis Plan to address problem: Continue PPIs (8) Restless leg syndrome Current Visit: Yes Status: Chronic Plan to address problem: Neurology consulted (9) DVT prophylaxis Current Visit: Yes Status: Acute Plan to address problem: On anticoagulation GI prophylaxis (10) Advance care planning Current Visit: Yes Status: Acute Plan to address problem: Disease education conducted: Care plan discussed, diagnosis discussed, prognosis discussed, patient is full code. Patient acknowledges understanding and agreement with care plan. +30 minutes.
[2021-09-15] MEDS: carvediloL 6.25 MG TAB PO SCH (12:31)
[2021-09-15] MEDS: PANTOPRAZOLE 40 MG TAB PO SCH (12:31)
[2021-09-15] MEDS: amLODIPine 10 MG TAB PO SCH (12:33)
[2021-09-15] MEDS: HEPARIN 5,000 UNIT/1 ML VIAL SUB-Q SCH (12:34)
[2021-09-15] MEDS ORDERED: ACETAMINOPHEN 325 MG TAB PO PRN (13:00)
[2021-09-15] MEDS ORDERED: METOCLOPRAMIDE 10 MG/2 ML INJ IV PRN (13:00)
[2021-09-15] MEDS ORDERED: oxyCODONE /ACETAMINOPHEN 5-325MG TAB PO PRN (13:00)
[2021-09-15] MEDS ORDERED: ONDANSETRON 4 MG/2 ML INJ IV PRN (13:00)
--- NOTE | 2021-09-15 22:18 | Consultation ---
History of Present Illness - Reason for Consult Consult date: 09/15/21 end stage renal disease - History of Present Illness This is a 46 year-old man with ESRD who presents for need for HD. Patient usually dialyzes MWF at [facility]. Last HD 09/12. Denies any recent issues with HD, including dizziness, lightheadedness, cramping, chest pain on HD. However, he has been very weak and generally feeling unwell. He complains of worsening restless leg syndrome, anxiety. He came to HD this AM at [facility] but was feeling unwell and came to ED for evaluation. K 5.5 Currently, patient denies any issues including dyspnea, edema, access issues, nausea, vomiting, headaches. Past History Past Medical History: ESRD, hypertension Past Surgical History: No surgical history Social history: no significant social history Family history: no significant family history Medications and Allergies Allergies Allergy/AdvReac Type Severity Reaction Status Date / Time atorvastatin AdvReac Itching Verified 09/15/21 13:35 Home Medications Medication Instructions Recorded Confirmed Last Taken Type carvediloL [Coreg] 6.25 mg PO BID #60 tablet 03/11/20 09/15/21 09/14/21 Rx Ferrous Sulfate [Ferrous Sulfate 324 mg PO DAILY #30 tab 09/04/21 09/15/21 09/14/21 Rx 324 MG] Pantoprazole [Protonix] 40 mg PO QDAY #30 tablet 09/04/21 09/15/21 09/14/21 Rx amLODIPine 10 mg PO QDAY #30 tablet 09/04/21 09/15/21 09/14/21 Rx Albuterol Sulfate [Proventil Hfa] 2 puff IH QDAY PRN 09/15/21 09/15/21 09/14/21 History Active Meds: Active Medications Acetaminophen (Acetaminophen 325 Mg Tab) 650 mg PO Q4H PRN PRN Reason: Pain MILD(1-3)/Fever >100.5/VARGHESE Amlodipine Besylate (Amlodipine 10 Mg Tab) 10 mg PO QDAY [facility] Last Admin: 09/15/21 12:33 Dose: 10 mg Atorvastatin Calcium (Atorvastatin 20 Mg Tab) 20 mg PO QHS [facility] Carvedilol (Carvedilol 6.25 Mg Tab) 6.25 mg PO BID [facility] Last Admin: 09/15/21 12:31 Dose: 6.25 mg Epoetin Suresh-epbx (Epoetin Suresh-Epbx 10,000 Unit/1 Ml Vial) 10,000 unit IV MIKO PRN PRN Reason: hemodialysis Ferrous Sulfate (Ferrous Sulfate 325 Mg Tab) 325 mg PO DAILY [facility] Heparin Sodium (Porcine) (Heparin 5,000 Unit/1 Ml Vial) 5,000 unit SUB-Q Q12HR [facility] Last Admin: 09/15/21 12:34 Dose: 5,000 unit Sodium Chloride (Nacl 0.9%) 100 mls @ 999 mls/hr IV MIKO PRN PRN Reason: Hypotension Metoclopramide HCl (Metoclopramide 10 Mg/2 Ml Inj) 10 mg IV Q6H PRN PRN Reason: Nausea And Vomiting Nicotine (Nicotine 14 Mg/24 Hr Patch) 14 mg TD QDAY [facility] Ondansetron HCl (Ondansetron 4 Mg/2 Ml Inj) 4 mg IV Q8H PRN PRN Reason: Nausea And Vomiting Oxycodone/Acetaminophen (Oxycodone /Acetaminophen 5-325mg Tab) 1 tab PO Q6H PRN PRN Reason: Pain, Moderate (4-6) Pantoprazole Sodium (Pantoprazole 40 Mg Tab) 40 mg PO QDAY [facility] Last Admin: 09/15/21 12:31 Dose: 40 mg Sodium Chloride (Sodium Chloride 0.9% 10 Ml Flush Syringe) 10 ml IV BID [facility] Last Admin: 09/15/21 12:42 Dose: 10 ml Sodium Chloride (Sodium Chloride 0.9% 10 Ml Flush Syringe) 10 ml IV PRN PRN PRN Reason: LINE FLUSH Review of Systems Constitutional: weakness, lethargy, daytime sleepiness Ears, nose, mouth and throat: no ear pain Cardiovascular: chest pain Respiratory: no cough, no shortness of breath Gastrointestinal: no abdominal pain, no nausea, no vomiting, no diarrhea Musculoskeletal: no neck stiffness, no neck pain Integumentary: no rash Neurological: no head injury Psychiatric: anxiety, sleep disturbances, other (restless legs) Exam - Vital Signs Vital signs: Vital Signs Temp Pulse Resp BP Pulse Ox 98.3 F 100 H 16 142/96 100 09/15/21 08:29 09/15/21 08:29 09/15/21 08:29 09/15/21 08:29 09/15/21 08:29 - Physical Exam Narrative exam: Constitutional: no acute distress Head: NC/AT Neck: supple Lungs: clear to auscultation CV: RRR, no M/R/G Abdomen: soft, non-tender, bowel sounds present Back: nontender Extremities: no edema, pulses WNL Skin: intact Neuro: no focal deficits, alert and oriented x4 Results - Lab Results 09/15/21 09:35 09/15/21 09:35 Most recent lab results Calcium 9.4 mg/dL (8.4-10.2) 09/15/21 09:35 Assessment and Plan This is a 46 year old man who presents with need for HD # ESRD: HD today attempted due to hyperkalemia, however was unable to cannulate AVF- try tomorrow, check duplex of AVF as well - daily labs - renally dose meds - avoid nephrotoxins - renal diet - verbal consent obtained for HD # Anemia: last hemoglobin low at 8.0, ESAs with HD. Has known iron deficiency as outpatient, continue IV iron as well # HTN: UF as tolerated. BP high # Secondary Hyperparathyroidism: continue home binders as needed, vitamin D analogs prn # Restless Legs: appears to have worsening anxiety- patient will known to myself from outpatient setting. Could be multiple reasons for restless leg syndrome- anxiety, iron deficiency, lack of compliance with CPAP, etc. However given severity of symptoms, will try ropinrole and refer to neurology as outpatient
[2021-09-16] MEDS: HEPARIN 5,000 UNIT/1 ML VIAL SUB-Q SCH ×3 (02:49→21:26)
[2021-09-16] MEDS: carvediloL 6.25 MG TAB PO SCH ×2 (02:49→16:49)
[2021-09-16 05:41] LABS: Basophils # (Auto) 0.1 K/mm3 (0.0-0.1); Eosinophils # (Auto) 0.2 K/mm3 (0.0-0.4); Hematocrit 23.8 % (35.5-45.6); Hemoglobin 7.7 gm/dl (11.8-15.2); Lymphocytes # (Auto) 1.9 K/mm3 (1.2-5.4); Lymphocytes % (Auto) 25.2 % (13.4-35.0); Mean Corpuscular HGB Conc 32 % (32-34); Mean Corpuscular Volume 97 fl (84-94); Monocytes # (Auto) 0.5 K/mm3 (0.0-0.8); Monocytes % (Auto) 7.1 % (0.0-7.3); Platelet Count 231 K/mm3 (140-440); Red Blood Count 2.45 M/mm3 (3.65-5.03); Red Cell Distribution Width 16.6 % (13.2-15.2)
[2021-09-16 05:54] LABS: Albumin 3.4 g/dL (3.9-5); Calcium 8.6 mg/dL (8.4-10.2)
[2021-09-16] MEDS ORDERED: CALCIUM GLUCONATE 1,000 MG in SODIUM CHLORIDE 0.9% 100 ML IV ONE (06:14)
[2021-09-16] MEDS ORDERED: CALC GLUCONATE 1GM/NS 100 ML 1 GM/100 ML BAG IV ONE (07:30)
[2021-09-16] MEDS: SODIUM POLYSTYRENE 15 GM/60 ML ORAL LIQD PO SCH ×2 (07:36→12:59)
[2021-09-16] MEDS ORDERED: ALBUTEROL 8.5 GM MDI INHALATION IH PRN (07:43)
[2021-09-16] MEDS ORDERED: cefTRIAXone/NS 1 GM/50 ML 1 GM/50 ML BAG IV SCH (08:00)
[2021-09-16] MEDS ORDERED: ALBUTEROL 2.5 MG/3 ML NEBU IH PRN (08:00)
--- NOTE | 2021-09-16 08:07 | Progress Note ---
Assessment and Plan Assessment and plan: -- Volume overload Patient did get emergent hemodialysis Nephrology consulted -- Hyperkalemia; potassium 6.2 Patient could not receive dialysis yesterday Management per nephrology, Continue Kayexalate 30 g oral x2 doses as ordered --End-stage renal disease needing dialysis Nephrology consulted, hemodialysis per schedule -- Acute bronchitis Rule out Covid,IV antibiotics IV Decadron --Hypertension Continue antihypertensives and adjust medications as necessary --Hyperlipidemia Continue statins -- GERD (gastroesophageal reflux disease) Continue PPIs -- Restless leg syndrome Neurology consulted -- DVT prophylaxis On anticoagulation GI prophylaxis -- Advance care planning Disease education conducted: Care plan discussed, diagnosis discussed, prognosis discussed, patient is full code. Patient acknowledges understanding and agreement with care plan. +30 minutes. DC planning, per case management to confirm outpatient HD scheduling status Need for Covid test prior to discharge We will closely monitor the patient and adjust management as needed Possible discharge tomorrow if stable Follow electrolytes potassium magnesium and calcium History Interval history: I have seen and examined the patient at the bedside this morning Patient's chart and medications reviewed No new events reported Hospitalist Physical - Constitutional Vitals: Temp Pulse Resp BP Pulse Ox 98.1 F 88 19 129/80 97 09/15/21 11:52 09/16/21 04:54 09/16/21 04:54 09/16/21 04:54 09/16/21 04:54 General appearance: Present: no acute distress, well-nourished - EENT Eyes: Present: PERRL, EOM intact - Neck Neck: Present: supple, normal ROM - Respiratory Respiratory effort: normal Respiratory: bilateral: diminished, negative: rales, rhonchi, wheezing - Cardiovascular Rhythm: regular Heart Sounds: Present: S1 & S2 - Extremities Extremities: no ischemia, No edema - Abdominal General gastrointestinal: soft, non-tender, non-distended, normal bowel sounds - Integumentary Integumentary: Present: clear, warm - Psychiatric Psychiatric: appropriate mood/affect - Neurologic Neurologic: CNII-XII intact, moves all extremities Results - Labs CBC & Chem 7: 09/16/21 05:09 09/16/21 05:09 Labs: Laboratory Last Values WBC 7.5 K/mm3 (4.5-11.0) 09/16/21 05:09 RBC 2.45 M/mm3 (3.65-5.03) L 09/16/21 05:09 Hgb 7.7 gm/dl (11.8-15.2) L 09/16/21 05:09 Hct 23.8 % (35.5-45.6) L 09/16/21 05:09 MCV 97 fl (84-94) H 09/16/21 05:09 MCH 31 pg (28-32) 09/16/21 05:09 MCHC 32 % (32-34) 09/16/21 05:09 RDW 16.6 % (13.2-15.2) H 09/16/21 05:09 Plt Count 231 K/mm3 (140-440) 09/16/21 05:09 Lymph % (Auto) 25.2 % (13.4-35.0) 09/16/21 05:09 [place] % (Auto) 7.1 % (0.0-7.3) 09/16/21 05:09 Eos % (Auto) 3.0 % (0.0-4.3) 09/16/21 05:09 Baso % (Auto) Custodian 09/16/21 05:09 Lymph # (Auto) 1.9 K/mm3 (1.2-5.4) 09/16/21 05:09 [place] # (Auto) 0.5 K/mm3 (0.0-0.8) 09/16/21 05:09 Eos # (Auto) 0.2 K/mm3 (0.0-0.4) 09/16/21 05:09 Baso # (Auto) 0.1 K/mm3 (0.0-0.1) 09/16/21 05:09 Seg Neutrophils % 64.0 % (40.0-70.0) 09/16/21 05:09 Seg Neutrophils # 4.8 K/mm3 (1.8-7.7) 09/16/21 05:09 Sodium 137 mmol/L (137-145) 09/16/21 05:09 Potassium 6.2 mmol/L (3.6-5.0) H* 09/16/21 05:09 Chloride 100.4 mmol/L (98-107) 09/16/21 05:09 Carbon Dioxide 17 mmol/L (22-30) L D 09/16/21 05:09 Anion Gap 26 mmol/L 02/22/22 05:09 BUN 57 mg/dL (9-20) H 09/16/21 05:09 Creatinine 13.8 mg/dL (0.8-1.3) H 09/16/21 05:09 Estimated GFR 5 ml/min 09/16/21 05:09 BUN/Creatinine Ratio 4 % 09/16/21 05:09 Glucose 111 mg/dL (75-100) H 09/16/21 05:09 Calcium 8.6 mg/dL (8.4-10.2) 09/16/21 05:09 Total Bilirubin 0.50 mg/dL (0.1-1.2) 09/16/21 05:09 Direct Bilirubin < 0.2 mg/dL (0-0.2) 09/15/21 09:35 Indirect Bilirubin 0.3 mg/dL 09/15/21 09:35 AST 17 units/L (5-40) 09/16/21 05:09 ALT 52 units/L (7-56) 09/16/21 05:09 Alkaline Phosphatase 65 units/L (35-129) 09/16/21 05:09 Total Protein 6.6 g/dL (6.3-8.2) 09/16/21 05:09 Albumin 3.4 g/dL (3.9-5) L 09/16/21 05:09 Albumin/Globulin Ratio 1.1 % 09/16/21 05:09 [place]/IV: Voiding Method Urinal Active Medications - Current Medications Current Medications: Generic Name Dose Route Start Last Admin Trade Name Freq PRN Reason Stop Dose Admin Acetaminophen 650 mg 09/15/21 13:00 Acetaminophen 325 Mg Tab PO Q4H PRN Pain MILD(1-3)/Fever >100.5/VARGHESE Albuterol 2.5 mg 09/16/21 08:00 Albuterol 2.5 Mg/3 Ml Nebu IH Q4HRT PRN Shortness Of Breath Amlodipine Besylate 10 mg 09/15/21 13:00 09/15/21 12:33 Amlodipine 10 Mg Tab PO 10 mg QDAY [facility] Administration Atorvastatin Calcium 20 mg 09/15/21 22:00 Atorvastatin 20 Mg Tab PO QHS [facility]INNE Carvedilol 6.25 mg 09/15/21 13:00 09/16/21 02:49 Carvedilol 6.25 Mg Tab PO 6.25 mg BID [facility] Administration Dexamethasone 8 mg 09/16/21 08:00 Dexamethasone 4 Mg/Ml Vial IV Q24H [facility] Epoetin Suresh-epbx 10,000 unit 09/15/21 11:00 Epoetin Suresh-Epbx 10,000 Unit/1 Ml Vial IV MIKO PRN hemodialysis Ferrous Sulfate 325 mg 09/16/21 10:00 Ferrous Sulfate 325 Mg Tab PO DAILY [facility] Heparin Sodium (Porcine) 5,000 unit 09/15/21 13:00 09/16/21 02:49 Heparin 5,000 Unit/1 Ml Vial SUB-Q 5,000 unit Q12HR [facility] Administration Sodium Chloride 100 mls @ 999 mls/hr 09/15/21 11:00 Nacl 0.9% IV MIKO PRN Hypotension Azithromycin 500 mg in 250 mls @ 250 mls/hr 09/16/21 08:00 Zithromax/Ns IV Q24H [facility] Ceftriaxone Sodium 1 gm in 50 mls @ 100 mls/hr 09/16/21 08:00 Rocephin/Ns 1 Gm/50 Ml IV Q12H [facility] Protocol Metoclopramide HCl 10 mg 09/15/21 13:00 Metoclopramide 10 Mg/2 Ml Inj IV Q6H PRN Nausea And Vomiting Nicotine 14 mg 09/16/21 10:00 Nicotine 14 Mg/24 Hr Patch TD QDAY [facility] Ondansetron HCl 4 mg 09/15/21 13:00 Ondansetron 4 Mg/2 Ml Inj IV Q8H PRN Nausea And Vomiting Oxycodone/Acetaminophen 1 tab 09/15/21 13:00 09/16/21 02:49 Oxycodone /Acetaminophen 5-325mg Tab PO 1 tab Q6H PRN Administration Pain, Moderate (4-6) Pantoprazole Sodium 40 mg 09/15/21 13:00 09/15/21 12:31 Pantoprazole 40 Mg Tab PO 40 mg QDAY [facility] Administration Ropinirole HCl 0.25 mg 09/16/21 22:00 Ropinirole 0.25 Mg Tab PO QHS [facility] Sodium Chloride 10 ml 09/15/21 13:00 09/16/21 02:49 Sodium Chloride 0.9% 10 Ml Flush Syringe IV 10 ml BID [facility] Administration Sodium Chloride 10 ml 09/15/21 13:00 Sodium Chloride 0.9% 10 Ml Flush Syringe IV PRN PRN LINE FLUSH Sodium Polystyrene Sulfonate 30 gm 09/16/21 07:00 09/16/21 07:36 Sodium Polystyrene 15 Gm/60 Ml Oral Liqd PO 09/16/21 13:00 30 gm Q4H [facility] Administration Nutrition/Malnutrition Assess - Dietary Evaluation Nutrition/Malnutrition Findings: Nutrition Notes Start: 09/15/21 13:04 Freq: Status: Active Protocol: Document 09/15/21 13:04 KAY (Rec: 09/15/21 13:05 KAY [email or web address]) Nutrition Notes Need for Assessment generated from: MD Order,Education Initial or Follow up Brief Note Current Diet Renal Subjective/Other Information RD consulted for diet education. Pt in ED at this time. Burn Absent Trauma Absent Nutrition Intervention Follow-Up By: 09/19/21 Additional Comments F/U: transfer to floor, diet education needs
[2021-09-16] MEDS ORDERED: AZITHROMYCIN/NS 500 MG/250 ML 500 MG/250 ML BAG IV SCH (09:00)
--- NOTE | 2021-09-16 09:19 | Consultation ---
History of Present Illness Consult date: 09/16/21 Reason for Consult: ESRD on dialysis,iron def. anemia,PLM History of present illness: Cough and shortness of breath for 2 days History of present illness: 46-year-old male with history of end-stage renal disease on hemodialysis, hyperlipidemia, hypertension and GERD presents with cough and shortness of breath of 1 month duration. Cough productive of green sputum. No fever. Patient was last dialyzed on 09/12/2021. Patient went to dialysis center but somehow change her mind and came to the emergency room. Patient has 3 months history of his legs jerking uncontrollably while he sleeps. Patient received his first Pfizer vaccine several months ago but did not take the subsequent doses. The patient is a 46-year-old male present with chief complaint of cough and shortness of breath. The patient states for approximately 1 month he has had a cough occasionally productive of green sputum. Patient admits to shortness of breath for same period of time. Patient denies history of fever. The patient has a history end-stage renal disease, last dialyzed 09/12/2021. The patient states she went to dialysis earlier today however he came to the emergency department before he was dialyzed because he was waiting in the waiting room for so long. Patient also admits to to 3 months history of his legs just jerking uncontrollably while he sleeps. Patient states he received his first dose of his Pfizer Covid vaccine approximately 7 months ago but has not received any subsequent doses neurology consulted for evaluation of recurrent legs jerking started1 years ago , after the start of his dialysis , he describes legs jerking mostly at rest improves with walking and or listening to music he is morbidly obese with hx of sleep apnea not complying with Cpap according to him it causes him to have nightmares. he was placed today by PCP on Requip - Past Medical History Previous Medical History?: Yes Hx Hypertension: Yes Hx Renal Disease: Yes Additional medical history: Permacath Left Chest - Surgical History Past Surgical History?: Yes Hx Coronary Stent: No Additional Surgical History: Permacath-removed. Right upper extremity fistula - Family History Family history: no significant - Social History Smoking Status: Current Every Day Smoker (1/20 pack/day) Substance Use Type: None (Denies illicit drug use) - Medications Home Medications: Home Medications Medication Instructions Recorded Confirmed Last Taken Type carvediloL [Coreg] 6.25 mg PO BID #60 tablet 03/11/20 09/03/21 08/13/20 06:00 Rx AtorvaSTATin [Lipitor] 20 mg PO QHS 09/03/21 09/03/21 Unknown History Ferrous Sulfate [Ferrous Sulfate 324 mg PO DAILY #30 tab 09/04/21 Unknown Rx 324 MG] Nicotine [Habitrol] 14 mg TD QDAY #30 patch 09/04/21 Unknown Rx Pantoprazole [Protonix] 40 mg PO QDAY #30 tablet 09/04/21 Unknown Rx amLODIPine 10 mg PO QDAY #30 tablet 09/04/21 Unknown Rx Medications and Allergies Allergies Allergy/AdvReac Type Severity Reaction Status Date / Time atorvastatin AdvReac Itching Verified 09/15/21 13:35 Home Medications Medication Instructions Recorded Confirmed Last Taken Type carvediloL [Coreg] 6.25 mg PO BID #60 tablet 03/11/20 09/16/21 09/14/21 Rx Ferrous Sulfate [Ferrous Sulfate 324 mg PO DAILY #30 tab 09/04/21 09/16/21 09/14/21 Rx 324 MG] Pantoprazole [Protonix] 40 mg PO QDAY #30 tablet 09/04/21 09/16/21 09/14/21 Rx amLODIPine 10 mg PO QDAY #30 tablet 09/04/21 09/16/21 09/14/21 Rx Albuterol Sulfate [Proventil Hfa] 2 puff IH QDAY PRN 09/15/21 09/16/21 09/14/21 History Active Meds: Active Medications Epoetin Suresh-epbx (Epoetin Suresh-Epbx 10,000 Unit/1 Ml Vial) 10,000 unit IV MIKO PRN PRN Reason: hemodialysis Sodium Chloride (Nacl 0.9%) 100 mls @ 999 mls/hr IV MIKO PRN PRN Reason: Hypotension Past History Past Medical History: ESRD, hypertension Past Surgical History: No surgical history Social history: no significant social history Family history: no significant family history Medications and Allergies Allergies Allergy/AdvReac Type Severity Reaction Status Date / Time atorvastatin AdvReac Itching Verified 09/15/21 13:35 Home Medications Medication Instructions Recorded Confirmed Last Taken Type carvediloL [Coreg] 6.25 mg PO BID #60 tablet 03/11/20 09/16/21 09/14/21 Rx Ferrous Sulfate [Ferrous Sulfate 324 mg PO DAILY #30 tab 09/04/21 09/16/21 09/14/21 Rx 324 MG] Pantoprazole [Protonix] 40 mg PO QDAY #30 tablet 09/04/21 09/16/21 09/14/21 Rx amLODIPine 10 mg PO QDAY #30 tablet 09/04/21 09/16/21 09/14/21 Rx Albuterol Sulfate [Proventil Hfa] 2 puff IH QDAY PRN 09/15/21 09/16/21 09/14/21 History Active Meds: Active Medications Acetaminophen (Acetaminophen 325 Mg Tab) 650 mg PO Q4H PRN PRN Reason: Pain MILD(1-3)/Fever >100.5/VARGHESE Albuterol (Albuterol 2.5 Mg/3 Ml Nebu) 2.5 mg IH Q4HRT PRN PRN Reason: Shortness Of Breath Amlodipine Besylate (Amlodipine 10 Mg Tab) 10 mg PO QDAY [facility] Last Admin: 09/15/21 12:33 Dose: 10 mg Atorvastatin Calcium (Atorvastatin 20 Mg Tab) 20 mg PO QHS [facility] Carvedilol (Carvedilol 6.25 Mg Tab) 6.25 mg PO BID [facility] Last Admin: 09/16/21 02:49 Dose: 6.25 mg Dexamethasone (Dexamethasone 4 Mg/Ml Vial) 8 mg IV Q24H [facility] Epoetin Suresh-epbx (Epoetin Suresh-Epbx 10,000 Unit/1 Ml Vial) 10,000 unit IV MIKO PRN PRN Reason: hemodialysis Ferrous Sulfate (Ferrous Sulfate 325 Mg Tab) 325 mg PO DAILY [facility] Heparin Sodium (Porcine) (Heparin 5,000 Unit/1 Ml Vial) 5,000 unit SUB-Q Q12HR [facility] Last Admin: 09/16/21 02:49 Dose: 5,000 unit Sodium Chloride (Nacl 0.9%) 100 mls @ 999 mls/hr IV MIKO PRN PRN Reason: Hypotension Azithromycin (Zithromax/Ns) 500 mg in 250 mls @ 250 mls/hr IV Q24H [facility] Ceftriaxone Sodium (Rocephin/Ns 2 Gm/100 Ml) 2 gm in 100 mls @ 200 mls/hr IV Q24H [facility] Metoclopramide HCl (Metoclopramide 10 Mg/2 Ml Inj) 10 mg IV Q6H PRN PRN Reason: Nausea And Vomiting Nicotine (Nicotine 14 Mg/24 Hr Patch) 14 mg TD QDAY [facility] Ondansetron HCl (Ondansetron 4 Mg/2 Ml Inj) 4 mg IV Q8H PRN PRN Reason: Nausea And Vomiting Oxycodone/Acetaminophen (Oxycodone /Acetaminophen 5-325mg Tab) 1 tab PO Q6H PRN PRN Reason: Pain, Moderate (4-6) Last Admin: 09/16/21 02:49 Dose: 1 tab Pantoprazole Sodium (Pantoprazole 40 Mg Tab) 40 mg PO QDAY [facility] Last Admin: 09/15/21 12:31 Dose: 40 mg Ropinirole HCl (Ropinirole 0.25 Mg Tab) 0.25 mg PO QHS [facility] Sodium Chloride (Sodium Chloride 0.9% 10 Ml Flush Syringe) 10 ml IV BID [facility] Last Admin: 09/16/21 02:49 Dose: 10 ml Sodium Chloride (Sodium Chloride 0.9% 10 Ml Flush Syringe) 10 ml IV PRN PRN PRN Reason: LINE FLUSH Sodium Polystyrene Sulfonate (Sodium Polystyrene 15 Gm/60 Ml Oral Liqd) 30 gm PO Q4H [facility] Stop: 09/16/21 13:00 Last Admin: 09/16/21 07:36 Dose: 30 gm Physical Examination - Vital Signs Vital Signs: Vital Signs Temp Pulse Resp BP Pulse Ox 98.3 F 100 H 16 142/96 100 09/15/21 08:29 09/15/21 08:29 09/15/21 08:29 09/15/21 08:29 09/15/21 08:29 - Constitutional General appearance: comfortable - EENT EENT: Present: PERRL, mucous membranes moist - Respiratory Respiratory: Present: chest non-tender, lungs clear, rhonchi - Cardiovascular Cardiovascular: Present: regular rate, normal S1, normal S2 Extremities: Present: no peripheral edema bilatateraly, no clubbing, cyanosis - Gastrointestinal Gastrointestinal: Present: normoactive bowel sounds - Integumentary Integumentary: Present: normal - Neurologic Cranial nerve examination: PERRL, EOMI, intact Speech examination: intact Sensorimotor examination: intact Detailed motor examination: grossly full strength in Results - Laboratory Findings CBC and BMP: 09/16/21 05:09 09/16/21 05:09 Abnormal Lab Findings: Abnormal Labs 09/15/21 09/15/21 09/16/21 09:35 09:35 05:09 RBC 2.60 L 2.45 L Hgb 8.0 L 7.7 L Hct 25.0 L 23.8 L MCV 96 H 97 H RDW 16.5 H 16.6 H Hand % (Auto) 9.1 H Potassium 5.5 H Carbon Dioxide BUN 47 H Creatinine 12.3 H Glucose 111 H ALT 66 H Albumin 3.8 L 09/16/21 05:09 RBC Hgb Hct MCV RDW Hand % (Auto) Potassium 6.2 H* Carbon Dioxide 17 L D BUN 57 H Creatinine 13.8 H Glucose 111 H ALT Albumin 3.4 L Assessment and Plan Assessment and Plan 46-year-old male with history of end-stage renal disease on hemodialysis, hyperlipidemia, hypertension and GERD presents with cough and shortness of breath of 1 month duration. Cough productive of green sputum. No fever. Patient was last dialyzed on 09/12/2021. Patient went to dialysis center but somehow change her mind and came to the emergency room. Patient has 3 months history of his legs jerking uncontrollably while he sleeps. Patient received his first Pfizer vaccine several months ago but did not take the subsequent doses. - Patient Problems # Restless leg syndrome -interfere with sleep -morbid obesity and hx of sl;ep apnea with poor compliance with C-PAP machine -underlying Iron deficiency anemia add to his problem-- correct underlying problem -ESRD on dialysis with poor compliance with dialysis -started on requip today will advance to 0.25 mg bid # End-stage renal disease needing dialysis - Hyperkalemia -poor compliance with dialysis # Sleep apnea -poor complying with C-PAP -follow up appointment # Acute bronchitis -Rule out Covid -IV antibiotics -IV Decadron # Hypertension -Continue antihypertensives and adjust medications as necessary # Hyperlipidemia -Continue statins # GERD (gastroesophageal reflux disease) -Continue PPIs # DVT prophylaxis -On anticoagulation GI prophylaxis will follow as needed
[2021-09-16] MEDS ORDERED: NON-FORMULARY EACH (Ferrous Sulfate [Ferrous Sulfate 324 Mg] 324 MG Tablet.Dr) PO SCH (10:00)
[2021-09-16] MEDS ORDERED: dexAMETHasone 4 MG/ML VIAL IV SCH (10:00)
[2021-09-16] MEDS ORDERED: cefTRIAXone/NS 2 GM/100 ML 2 GM/100 ML BAG IV SCH (10:00)
[2021-09-16] MEDS ORDERED: FERROUS SULFATE 325 MG TAB PO SCH (10:00)
[2021-09-16] MEDS ORDERED: NICOTINE 14 MG/24 HR PATCH TD SCH (10:00)
--- NOTE | 2021-09-16 10:02 | Progress Note ---
Assessment and Plan This is a 46 year old man who presents with need for HD # ESRD: HD yesterday attempted due to hyperkalemia, however was unable to cannulate AVF- try again today, check duplex of AVF as well. Needs HD today given hyperkalemia, volume- if unable to cannulate, will need vascular consult - daily labs - renally dose meds - avoid nephrotoxins - renal diet - verbal consent obtained for HD # Anemia: last hemoglobin low at 7.7, ESAs with HD. Has known iron deficiency as outpatient, continue IV iron as well # HTN: UF as tolerated. BP high # Secondary Hyperparathyroidism: continue home binders as needed, vitamin D analogs prn # Restless Legs: appears to have worsening anxiety which may primary cause of m ultiple issues- patient will known to myself from outpatient setting. Could have multiple etiologies for restless leg syndrome- anxiety, iron deficiency, lack of compliance with CPAP, etc. However given severity of symptoms, will try ropinrole, note neurology consult pending Subjective Date of service: 09/16/21 Interval history: Notes poor sleep, remains with restless legs this AM. Notes that he feels he needs dialysis with volume Objective - Exam Narrative Exam: Constitutional: no acute distress Head: NC/AT Neck: supple Lungs: clear to auscultation CV: RRR, no M/R/G Abdomen: soft, non-tender, bowel sounds present Back: nontender Extremities: no edema, pulses WNL Skin: intact Neuro: no focal deficits, alert and oriented x4 - Vital Signs Vital signs: Vital Signs - 12hr 09/16/21 09/16/21 09/16/21 02:04 02:14 03:49 Temperature 97.5 F L Pulse Rate 95 H 86 Respiratory 20 20 Rate Blood Pressure 138/121 Blood Pressure [Left] O2 Sat by Pulse 98 88 Oximetry 09/16/21 09/16/21 09/16/21 04:54 07:54 09:03 Temperature 97.5 F L Pulse Rate 88 90 Respiratory 19 22 Rate Blood Pressure 126/91 Blood Pressure 129/80 [Left] O2 Sat by Pulse 97 100 98 Oximetry - Lab 09/16/21 05:09 09/16/21 05:09 Most recent lab results Calcium 8.6 mg/dL (8.4-10.2) 09/16/21 05:09 Medications & Allergies - Medications Allergies/Adverse Reactions: Allergies atorvastatin Adverse Reaction (Verified 09/15/21 13:35) Itching patient says he does not take it often because he believes it causes him to itch. Home Medications: Home Medications Medication Instructions Recorded Confirmed Last Taken Type carvediloL [Coreg] 6.25 mg PO BID #60 tablet 03/11/20 09/16/21 09/14/21 Rx Ferrous Sulfate [Ferrous Sulfate 324 mg PO DAILY #30 tab 09/04/21 09/16/21 09/14/21 Rx 324 MG] Pantoprazole [Protonix] 40 mg PO QDAY #30 tablet 09/04/21 09/16/21 09/14/21 Rx amLODIPine 10 mg PO QDAY #30 tablet 09/04/21 09/16/21 09/14/21 Rx Albuterol Sulfate [Proventil Hfa] 2 puff IH QDAY PRN 09/15/21 09/16/21 09/14/21 History Active Medications: Generic Name Dose Route Start Last Admin Trade Name Freq PRN Reason Stop Dose Admin Acetaminophen 650 mg 09/15/21 13:00 Acetaminophen 325 Mg Tab PO Q4H PRN Pain MILD(1-3)/Fever >100.5/VARGHESE Albuterol 2.5 mg 09/16/21 08:00 Albuterol 2.5 Mg/3 Ml Nebu IH Q4HRT PRN Shortness Of Breath Amlodipine Besylate 10 mg 09/15/21 13:00 09/15/21 12:33 Amlodipine 10 Mg Tab PO 10 mg QDAY [facility] Administration Atorvastatin Calcium 20 mg 09/15/21 22:00 Atorvastatin 20 Mg Tab PO QHS [facility] Carvedilol 6.25 mg 09/15/21 13:00 09/16/21 02:49 Carvedilol 6.25 Mg Tab PO 6.25 mg BID [facility] Administration Dexamethasone 8 mg 09/16/21 10:00 Dexamethasone 4 Mg/Ml Vial IV Q24H [facility] Epoetin Suresh-epbx 10,000 unit 09/15/21 11:00 Epoetin Suresh-Epbx 10,000 Unit/1 Ml Vial IV MIKO PRN hemodialysis Ferrous Sulfate 325 mg 09/16/21 10:00 Ferrous Sulfate 325 Mg Tab PO DAILY [facility] Heparin Sodium (Porcine) 5,000 unit 09/15/21 13:00 09/16/21 02:49 Heparin 5,000 Unit/1 Ml Vial SUB-Q 5,000 unit Q12HR [facility] Administration Sodium Chloride 100 mls @ 999 mls/hr 09/15/21 11:00 Nacl 0.9% IV MIKO PRN Hypotension Azithromycin 500 mg in 250 mls @ 250 mls/hr 09/16/21 09:00 Zithromax/Ns IV Q24H [facility] Ceftriaxone Sodium 2 gm in 100 mls @ 200 mls/hr 09/16/21 10:00 Rocephin/Ns 2 Gm/100 Ml IV Q24H [facility] Metoclopramide HCl 10 mg 09/15/21 13:00 Metoclopramide 10 Mg/2 Ml Inj IV Q6H PRN Nausea And Vomiting Nicotine 14 mg 09/16/21 10:00 Nicotine 14 Mg/24 Hr Patch TD QDAY [facility] Ondansetron HCl 4 mg 09/15/21 13:00 Ondansetron 4 Mg/2 Ml Inj IV Q8H PRN Nausea And Vomiting Oxycodone/Acetaminophen 1 tab 09/15/21 13:00 09/16/21 02:49 Oxycodone /Acetaminophen 5-325mg Tab PO 1 tab Q6H PRN Administration Pain, Moderate (4-6) Pantoprazole Sodium 40 mg 09/15/21 13:00 09/15/21 12:31 Pantoprazole 40 Mg Tab PO 40 mg QDAY [facility] Administration Ropinirole HCl 0.25 mg 09/16/21 22:00 Ropinirole 0.25 Mg Tab PO QHS [facility] Sodium Chloride 10 ml 09/15/21 13:00 09/16/21 02:49 Sodium Chloride 0.9% 10 Ml Flush Syringe IV 10 ml BID [facility] Administration Sodium Chloride 10 ml 09/15/21 13:00 Sodium Chloride 0.9% 10 Ml Flush Syringe IV PRN PRN LINE FLUSH Sodium Polystyrene Sulfonate 30 gm 09/16/21 07:00 09/16/21 07:36 Sodium Polystyrene 15 Gm/60 Ml Oral Liqd PO 09/16/21 13:00 30 gm Q4H [facility] Administration
--- NOTE | 2021-09-16 10:17 | Electrocardiograph Report ---
[facility] Test Date: 2021-09-15 Test Time: 11:59:30 Pat Name: MILLER FERRARO Department: Room: A469 Gender: M Administrative Services Assistant: ALIYAH : 1975 Requested By: MARK VERGARA Order Number: [id number] Reading MD: Jama Perez Measurements Intervals [place] Rate: 101 P: 73 SD: 152 QRS: 0 QRSD: 80 T: 60 QT: 362 QTc: 469 Interpretive Statements Sinus tachycardia Probable left atrial enlargement Compared to ECG 09/03/2021 11:26:49 No significant change noted. Electronically Signed On 09-16-2021 10:16:44 EST by Jama Perez
--- NOTE | 2021-09-16 13:51 | Vascular Lab Report ---
VL HEMODIALYSIS ACCESS INDICATION: AVF not able to be cannulated. COMPARISON: None available. FINDINGS: A patent AV fistula is seen along the right arm with abnormally elevated peak systolic velocity of 90 0 cm per sec and at the arterial inflow. Normal peak systolic velocities are noted elsewhere along th e fistula. Good flow is noted with a rate of 9727-3552 mL/minute. IMPRESSION: Suspected stenosis at the arterial inflow of the AV fistula. No other significant abnormality. Signer Name: Coy High MD Signed: 09/16/2021 1:47 PM Workstation Name: [id number]
[2021-09-16] MEDS: EPOETIN ALFA-EPBX 10,000 UNIT/1 ML VIAL IV PRN (16:25)
[2021-09-16] MEDS: PANTOPRAZOLE 40 MG TAB PO SCH (16:49)
[2021-09-16] MEDS: amLODIPine 10 MG TAB PO SCH (16:49)
[2021-09-16 19:23] LABS: Calcium 8.5 mg/dL (8.4-10.2)
[2021-09-16] MEDS ORDERED: guaiFENesin/CODEINE 100-10MG ORAL LIQD 5 ML PO PRN (20:47)
[2021-09-16] MEDS ORDERED: rOPINIRole 0.25 MG TAB PO SCH ×2 (22:00)
[2021-09-17] MEDS: carvediloL 6.25 MG TAB PO SCH (05:05)
[2021-09-17 06:00] LABS: Basophils % (Auto) 0.4 % (0.0-1.8); Hematocrit 25.4 % (35.5-45.6); Hemoglobin 8.2 gm/dl (11.8-15.2); Lymphocytes # (Auto) 1.2 K/mm3 (1.2-5.4); Lymphocytes % (Auto) 20.6 % (13.4-35.0); Mean Corpuscular HGB Conc 32 % (32-34); Mean Corpuscular Volume 96 fl (84-94); Monocytes # (Auto) 0.2 K/mm3 (0.0-0.8); Monocytes % (Auto) 2.7 % (0.0-7.3); Platelet Count 229 K/mm3 (140-440); Red Blood Count 2.65 M/mm3 (3.65-5.03); Red Cell Distribution Width 16.1 % (13.2-15.2)
[2021-09-17 06:20] LABS: Calcium 8.9 mg/dL (8.4-10.2)
--- NOTE | 2021-09-17 09:36 | Progress Note ---
Assessment and Plan This is a 46 year old man who presents with need for HD # ESRD: HD completed yesterday for hyperkalemia, volume- AVF able to be cannulated and working well . Continue HD today per MWF schedule, can discharge to outpatient setting after HD completed - daily labs - renally dose meds - avoid nephrotoxins - renal diet - verbal consent obtained for HD # Anemia: last hemoglobin 8.2, ESAs with HD. Has known iron deficiency as outpatient, continue IV iron as well # HTN: UF as tolerated. BP stable this am # Secondary Hyperparathyroidism: continue home binders as needed, vitamin D analogs prn # Restless Legs: appears to have worsening anxiety which may primary cause of multiple issues- patient will known to myself from outpatient setting. Could have multiple etiologies for restless leg syndrome- anxiety, iron deficiency, lack of compliance with CPAP, etc. However given severity of symptoms, will try ropinrole, note neurology consult Subjective Date of service: 09/17/21 Interval history: About to go to dialysis. No issues with HD yesterday. Objective - Exam Narrative Exam: Constitutional: no acute distress Head: NC/AT Neck: supple Lungs: clear to auscultation CV: RRR, no M/R/G Abdomen: soft, non-tender, bowel sounds present Back: nontender Extremities: no edema, pulses WNL Skin: intact Neuro: no focal deficits, alert and oriented x4 - Vital Signs Vital signs: Vital Signs - 12hr 09/16/21 09/17/21 09/17/21 23:00 02:00 04:24 Temperature 97.9 F Pulse Rate 100 H 104 H Respiratory 20 Rate Respiratory 17 Rate [ generalized] Blood Pressure 138/97 O2 Sat by Pulse 99 Oximetry 09/17/21 09/17/21 09/17/21 08:10 08:19 08:24 Temperature 97.6 F Pulse Rate 103 H Respiratory 18 Rate Respiratory Rate [ generalized] Blood Pressure 152/97 O2 Sat by Pulse 98 98 98 Oximetry - Lab 09/17/21 05:09 09/17/21 05:09 Most recent lab results Calcium 8.9 mg/dL (8.4-10.2) 09/17/21 05:09 Medications & Allergies - Medications Allergies/Adverse Reactions: Allergies atorvastatin Adverse Reaction (Verified 09/15/21 13:35) Itching patient says he does not take it often because he believes it causes him to itch. Home Medications: Home Medications Medication Instructions Recorded Confirmed Last Taken Type carvediloL [Coreg] 6.25 mg PO BID #60 tablet 03/11/20 09/16/21 09/14/21 Rx Ferrous Sulfate [Ferrous Sulfate 324 mg PO DAILY #30 tab 09/04/21 09/16/21 09/14/21 Rx 324 MG] Pantoprazole [Protonix] 40 mg PO QDAY #30 tablet 09/04/21 09/16/21 09/14/21 Rx amLODIPine 10 mg PO QDAY #30 tablet 09/04/21 09/16/21 09/14/21 Rx Albuterol Sulfate [Proventil Hfa] 2 puff IH QDAY PRN 09/15/21 09/16/21 09/14/21 History Active Medications: Generic Name Dose Route Start Last Admin Trade Name Freq PRN Reason Stop Dose Admin Acetaminophen 650 mg 09/15/21 13:00 Acetaminophen 325 Mg Tab PO Q4H PRN Pain MILD(1-3)/Fever >100.5/VARGHESE Albuterol 2.5 mg 09/16/21 08:00 Albuterol 2.5 Mg/3 Ml Nebu IH Q4HRT PRN Shortness Of Breath Amlodipine Besylate 10 mg 09/15/21 13:00 09/16/21 16:49 Amlodipine 10 Mg Tab PO 10 mg QDAY [facility] Administration Atorvastatin Calcium 20 mg 09/15/21 22:00 Atorvastatin 20 Mg Tab PO QHS [facility] Azithromycin 500 mg 09/17/21 10:00 Azithromycin 250 Mg Tab PO 09/20/21 10:01 QDAY [facility] Protocol Carvedilol 6.25 mg 09/15/21 13:00 09/17/21 05:05 Carvedilol 6.25 Mg Tab PO Not Given BID [facility] Dexamethasone 8 mg 09/16/21 10:00 09/16/21 16:49 Dexamethasone 4 Mg/Ml Vial IV 8 mg Q24H [facility] Administration Epoetin Suresh-epbx 10,000 unit 09/15/21 11:00 09/16/21 16:25 Epoetin Suresh-Epbx 10,000 Unit/1 Ml Vial IV 10,000 unit MIKO PRN Administration hemodialysis Ferrous Sulfate 325 mg 09/16/21 10:00 09/16/21 16:49 Ferrous Sulfate 325 Mg Tab PO 325 mg DAILY [facility] Administration Heparin Sodium (Porcine) 5,000 unit 09/15/21 13:00 09/16/21 21:26 Heparin 5,000 Unit/1 Ml Vial SUB-Q 5,000 unit Q12HR [facility] Administration Sodium Chloride 100 mls @ 999 mls/hr 09/15/21 11:00 Nacl 0.9% IV MIKO PRN Hypotension Ceftriaxone Sodium 2 gm in 100 mls @ 200 mls/hr 09/16/21 10:00 09/16/21 16:49 Rocephin/Ns 2 Gm/100 Ml IV 200 mls/hr Q24H [facility] Administration Metoclopramide HCl 10 mg 09/15/21 13:00 Metoclopramide 10 Mg/2 Ml Inj IV Q6H PRN Nausea And Vomiting Nicotine 14 mg 09/16/21 10:00 09/16/21 16:50 Nicotine 14 Mg/24 Hr Patch TD 14 mg QDAY [facility] Administration Ondansetron HCl 4 mg 09/15/21 13:00 Ondansetron 4 Mg/2 Ml Inj IV Q8H PRN Nausea And Vomiting Oxycodone/Acetaminophen 1 tab 09/15/21 13:00 09/16/21 02:49 Oxycodone /Acetaminophen 5-325mg Tab PO 1 tab Q6H PRN Administration Pain, Moderate (4-6) Pantoprazole Sodium 40 mg 09/15/21 13:00 09/16/21 16:49 Pantoprazole 40 Mg Tab PO 40 mg QDAY [facility] Administration Pseudoephedrine/Acetam/Chlorphenir 10 ml 09/16/21 20:47 09/16/21 21:27 Guaifenesin/Codeine 100-10mg Oral Liqd 5 Ml PO 10 ml Q4H PRN Administration Cough Ropinirole HCl 0.25 mg 09/16/21 22:00 09/16/21 21:26 Ropinirole 0.25 Mg Tab PO 0.25 mg BID [facility] Administration Sodium Chloride 10 ml 09/15/21 13:00 09/17/21 05:08 Sodium Chloride 0.9% 10 Ml Flush Syringe IV 10 ml BID [facility] Administration Sodium Chloride 10 ml 09/15/21 13:00 Sodium Chloride 0.9% 10 Ml Flush Syringe IV PRN PRN LINE FLUSH
[2021-09-17] MEDS ORDERED: AZITHROMYCIN 250 MG TAB PO SCH (10:00)
--- NOTE | 2021-09-17 11:02 | Discharge Summary ---
Providers - Providers Date of Admission: 09/15/21 12:07 Date of discharge: 09/17/21 Attending physician: STEPHANIE CADENA 09/15/21 10:47 Consult to Physician [CONS] Urgent Comment: Consulting Provider: CARMEN LEE Physician Instructions: Reason For Exam: Hyperkalemia 09/15/21 12:09 Consult to Dietitian/Nutrition [CONS] Routine Physician Instructions: Reason For Exam: Reason for Consult: Diet education 09/16/21 07:42 Consult to Physician [CONS] Routine Comment: Consulting Provider: RUTH WATTS Physician Instructions: Reason For Exam: Restless leg syndrome Primary care physician: ACCOUNT RECEIVABLE CLERK Hospitalization Condition: Fair Disposition: 01 HOME / SELF CARE / HOMELESS Core Measure Documentation - Palliative Care Palliative Care/ Comfort Measures: Not Applicable - Core Measures Any of the following diagnoses?: none Exam - Constitutional Vitals: Temp Pulse Resp BP Pulse Ox 98.3 F 104 H 20 179/109 97 09/17/21 09:15 09/17/21 10:15 09/17/21 09:15 09/17/21 10:15 09/17/21 09:15 General appearance: Present: no acute distress, well-nourished - EENT Eyes: Present: PERRL, EOM intact - Neck Neck: Present: supple, normal ROM - Respiratory Respiratory effort: normal Respiratory: bilateral: diminished, negative: rales, rhonchi, wheezing - Cardiovascular Rhythm: regular Heart Sounds: Present: S1 & S2 - Extremities Extremities: no ischemia, No edema - Abdominal General gastrointestinal: Present: soft, non-tender, non-distended, normal bowel sounds - Integumentary Integumentary: Present: clear, warm - Musculoskeletal Musculoskeletal: strength equal bilaterally - Psychiatric Psychiatric: appropriate mood/affect, cooperative - Neurologic Neurologic: moves all extremities Plan Activity: advance as tolerated Diet: renal Special Instructions: smoking cessation Additional Instructions: Follow renal/hemodialysis per schedule/MWF. If you have worsening symptoms contact MD or go to the nearest emergency room as needed. Advised smoking cessation nicotine patch as needed,. Strongly advised to comply with medications, diet, follow-up visits, hemodialysis. Follow up with: PRIMARY MD LYNETTE [Primary Care Provider] - 3-5 Days CARMEN LEE MD [Staff Physician] - 7 Days Prescriptions: Azithromycin 500 mg PO DAILY #3 Ferrous Sulfate [Feosol 325 MG tab] 325 mg PO DAILY #30 tablet Nicotine [Habitrol] 14 mg TD QDAY #30 patch Prednisone [predniSONE 10 mg (6-Day Pack, 21 Tabs)] 10 mg PO .TAPER #1 Albuterol Mdi (or & Nicu Only) [ProAir HFA Inhaler] 2 puff IH QID PRN #8.5 gram PRN Reason: Shortness Of Breath rOPINIRole [Requip] 0.25 mg PO BID #60 tablet guaiFENesin/DEXTROMETHORPHAN [Robitussin Cough-Chest Dm Liq] 10 ml PO PRN 14 Days #1 bottle
[2021-09-17] MEDS: EPOETIN ALFA-EPBX 10,000 UNIT/1 ML VIAL IV PRN (11:41)
[2021-09-17 13:49] VITALS: BP 140/81
== END 2021-09-17 13:57 | disposition home or self-care (01) ==
LOC: ED 06:10 → 4A 12:07
PROVIDERS: ADMIT Internal Medicine; ATTEND Internal Medicine
DX: E87.70 Fluid overload, unspecified (principal); Z20.822 Contact with and (suspected) exposure to COVID-19; E87.5 Hyperkalemia; I12.0 Hypertensive chronic kidney disease with stage 5 chronic kidney disease or end stage renal disease; N18.6 End stage renal disease; D63.1 Anemia in chronic kidney disease; J20.9 Acute bronchitis, unspecified; E78.2 Mixed hyperlipidemia; K21.9 Gastro-esophageal reflux disease without esophagitis; G25.81 Restless legs syndrome; N25.81 Secondary hyperparathyroidism of renal origin; F17.200 Nicotine dependence, unspecified, uncomplicated; Z79.899 Other long term (current) drug therapy; Z98.890 Other specified postprocedural states; Z99.2 Dependence on renal dialysis
CPT/HCPCS: 36415; 71046; 80048; 80053; 80076; 85025; 93005; 93010; 93990; 94644; 96365; 96368; 96372; 96375; 99285; G0257; G0378; J0456; J0696; J0885; J1100; J1644; U0003

== ENCOUNTER 2021-12-16 08:49 | Emergency (ER) | payer MEDICARE ==
[2021-12-16 11:19] VITALS: BP 141/98
[2021-12-16 12:39] LABS: Hematocrit 35.5 % (35.5-45.6); Hemoglobin 11.3 gm/dl (11.8-15.2); Mean Corpuscular HGB Conc 32 % (32-34); Mean Corpuscular Volume 96 fl (84-94); Platelet Count 154 K/mm3 (140-440); Red Blood Count 3.72 M/mm3 (3.65-5.03); Red Cell Distribution Width 16.9 % (13.2-15.2)
[2021-12-16 12:47] LABS: Calcium 9.3 mg/dL (8.4-10.2)
== END 2021-12-16 19:44 | disposition left against medical advice (07) ==
LOC: ED 08:49
DX: R06.02 Shortness of breath (principal); Z99.2 Dependence on renal dialysis; Z53.21 Procedure and treatment not carried out due to patient leaving prior to being seen by health care provider
CPT/HCPCS: 36415; 80053; 85027

== ENCOUNTER 2021-12-17 09:47 | Inpatient (IN) | payer MEDICARE ==
[2021-12-17 11:12] LABS: ABG Base Excess -7.7 mmol/L (-2.0-3.0); ABG HCO3 17.2 mmol/L (20.0-26.0); ABG Methemoglobin 0.5 % (0.0-1.5); ABG Oxygen Saturation 96.3 % (95.0-99.0); ABG PCO2 32.9 mm Hg; ABG PH 7.336 pH Units (7.350-7.450); ABG PO2 84.6 mm Hg (80.0-90.0)
[2021-12-17] MEDS ORDERED: IPRATROPIUM/ALBUTEROL SULFATE 3 ML AMPUL.NEB IH ONE (11:22)
--- NOTE | 2021-12-17 11:28 | XRay Report ---
CHEST 1 VIEW 12/17/2021 10:20 AM INDICATION / CLINICAL INFORMATION: Hypoxia. Missed dialysis. COMPARISON: 11/11/21. FINDINGS: SUPPORT DEVICES: None. HEART / MEDIASTINUM: Cardiomegaly is stable. Pulmonary vasculature is normal for technique. LUNGS / PLEURA: No significant pulmonary or pleural abnormality. No pneumothorax. ADDITIONAL FINDINGS: Right subclavian/brachiocephalic endoluminal stent graft is unchanged. IMPRESSION: Cardiomegaly without acute pulmonary disease. Signer Name: Prabhakar Castillo MD Signed: 12/17/2021 11:24 AM Workstation Name: [id number]
--- NOTE | 2021-12-17 11:45 | Emergency Department Report ---
ED Shortness of Breath HPI - General Chief Complaint: Dyspnea/Respdistress Stated Complaint: SLEEP APNEA/DIALYSIS Time Seen by Provider: 12/17/21 10:35 Source: EMS Mode of arrival: Stretcher Limitations: No Limitations - History of Present Illness Initial Comments: 46-year-old male with 46 YO Male with HTN, Obesity Hypoventilation Syndrome, GERD, ESRD on HD(M,W,F), and nicotine Dependence presents with complaints of shortness of breath and needing dialysis. Patient missed his dialysis 2 days ago because he overslept. Patient states he suffers from uncontrollable movements of arms and legs which makes it difficult for him to sleep. When he finally went to sleep he overslept and missed his dialysis appointment. Today when he went to dialysis he was noted to desat to the high 80s when he fell asleep and therefore he was sent to the ER and did not receive dialysis. Patient's main complaint is intermittent uncontrollable movement of his arms or legs diagnosed by another ER physician as restless leg syndrome. Patient does not have a primary care doctor and has not received further work-up for this condition. He complains of chronic shortness of breath unchanged from baseline. He has been noncompliant with CPAP for the last 4 to 5 months he does not currently have a CPAP machine. He denies history of COPD, asthma or chronic home oxygen use. He does report a intermittently productive cough and states he has been diagnosed with "bronchitis". Facility Attendant Dr. Bear - Related Data Previous Rx's Medication Instructions Recorded Last Taken Type amLODIPine 10 mg PO QDAY #30 tablet 09/04/21 09/14/21 Rx Aspirin [Aspirin BABY CHEW TAB] 81 mg PO DAILY #30 tab.chew 11/13/21 Unknown Rx AtorvaSTATin [Lipitor] 40 mg PO QHS #30 tablet 11/13/21 Unknown Rx Losartan [Cozaar] 100 mg PO QDAY #30 tablet 11/13/21 Unknown Rx Nicotine [Habitrol] 14 mg TD QDAY #30 patch 11/13/21 Unknown Rx Pantoprazole [Protonix TAB] 40 mg PO QDAY #30 tablet 11/13/21 Unknown Rx carvediloL [Coreg] 25 mg PO Q12HR #30 tablet 11/13/21 Unknown Rx rOPINIRole [Requip] 0.25 mg PO BID #60 tablet 11/13/21 Unknown Rx Allergies Allergy/AdvReac Type Severity Reaction Status Date / Time No Known Allergies Allergy Verified 11/11/21 10:26 ED Review of Systems ROS: Stated complaint: SLEEP APNEA/DIALYSIS Other details as noted in HPI Comment: All other systems reviewed and negative ED Past Medical Hx - Past Medical History Hx Hypertension: Yes Hx Heart Attack/AMI: No Hx Congestive Heart Failure: No Hx Deep Vein Thrombosis: No Hx GERD: No Hx Liver Disease: No Hx Renal Disease: Yes Hx Kidney Stones: No Hx HIV: No Additional medical history: Permacath Left Chest, dialysis MWF - Surgical History Hx Coronary Stent: No Additional Surgical History: Permacath-removed. Right upper extremity fistula - Social History Smoking Status: Light Tobacco Smoker - Medications Home Medications: Home Medications Medication Instructions Recorded Confirmed Last Taken Type amLODIPine 10 mg PO QDAY #30 tablet 09/04/21 12/17/21 09/14/21 Rx Aspirin [Aspirin BABY CHEW TAB] 81 mg PO DAILY #30 tab.chew 11/13/21 12/17/21 Unknown Rx AtorvaSTATin [Lipitor] 40 mg PO QHS #30 tablet 11/13/21 12/17/21 Unknown Rx Losartan [Cozaar] 100 mg PO QDAY #30 tablet 11/13/21 12/17/21 Unknown Rx Nicotine [Habitrol] 14 mg TD QDAY #30 patch 11/13/21 12/17/21 Unknown Rx Pantoprazole [Protonix TAB] 40 mg PO QDAY #30 tablet 11/13/21 12/17/21 Unknown Rx carvediloL [Coreg] 25 mg PO Q12HR #30 tablet 11/13/21 12/17/21 Unknown Rx rOPINIRole [Requip] 0.25 mg PO BID #60 tablet 11/13/21 12/17/21 Unknown Rx ED Physical Exam - General Limitations: No Limitations - Other Other exam information: General: No acute distress Head: Atraumatic Eyes: normal appearance ENT: Moist mucous membranes Neck: Normal appearance, no midline tenderness Chest: Mild bilateral expiratory wheezing, no tachypnea accessory muscle CV: Regular rate and rhythm Abdomen: Soft, normal bowel sounds, nontender, nondistended, no rebound or guarding Extremity: Right BKA with healing wound Neuro: Alert O x 3, no facial asymmetry, speech slurred, no gross motor sensory deficit Psych: Appropriate behavior Skin: ED Course Vital Signs 05/12/17/21 12/17/21 10:16 11:57 12:44 Temperature 97.9 F Pulse Rate 78 84 Respiratory 16 21 Rate Blood Pressure 140/93 139/103 [Left] O2 Sat by Pulse 98 96 97 Oximetry - Consultations Consultation #1: 12/17/21 11:58 case d/w DR Ben lambert, will arrange for emergent dialysiis 12/17/21 13:12 Dr. Contreras did come to the ED to evaluate patient ED Medical Decision Making - Lab Data Result diagrams: 12/17/21 10:58 12/17/21 10:58 Lab Results 12/17/21 12/17/21 12/17/21 Range/Units 10:55 10:58 10:58 WBC 5.9 (4.5-11.0) K/mm3 RBC 3.54 L (3.65-5.03) M/mm3 Hgb 11.0 L (11.8-15.2) gm/dl Hct 33.8 L (35.5-45.6) % MCV 96 H (84-94) fl MCH 31 (28-32) pg MCHC 33 (32-34) % RDW 16.7 H (13.2-15.2) % Plt Count 117 L (140-440) K/mm3 Lymph % (Auto) 28.2 (13.4-35.0) % [place] % (Auto) 9.0 H (0.0-7.3) % Eos % (Auto) 1.2 (0.0-4.3) % Baso % (Auto) 1.7 (0.0-1.8) % Lymph # (Auto) 1.7 (1.2-5.4) K/mm3 [place] # (Auto) 0.5 (0.0-0.8) K/mm3 Eos # (Auto) 0.1 (0.0-0.4) K/mm3 Baso # (Auto) 0.1 (0.0-0.1) K/mm3 Seg Neutrophils % 59.9 (40.0-70.0) % Seg Neutrophils # 3.5 (1.8-7.7) K/mm3 ABG pH 7.336 L (7.350-7.450) pH Units ABG pCO2 32.9 mm Hg ABG pO2 84.6 (80.0-90.0) mm Hg ABG HCO3 17.2 L (20.0-26.0) mmol/L ABG O2 Saturation 96.3 (95.0-99.0) % ABG O2 Content 14.3 (0.0-44) ABG Base Excess -7.7 L (-2.0-3.0) mmol/L ABG Hemoglobin 10.8 L (14.0-18.0) gm/dl ABG Carboxyhemoglobin 2.4 (0.0-5.0) % ABG Methemoglobin 0.5 (0.0-1.5) % Oxyhemoglobin 93.6 L (95.0-99.0) % FiO2 21 % Sodium 137 (137-145) mmol/L Potassium 5.9 H (3.6-5.0) mmol/L Chloride 102.3 (98-107) mmol/L Carbon Dioxide 15 L (22-30) mmol/L Anion Gap 26 mmol/L BUN 73 H (9-20) mg/dL Creatinine 15.2 H (0.8-1.3) mg/dL Estimated GFR 4 ml/min BUN/Creatinine Ratio 5 % Glucose 92 (75-100) mg/dL Calcium 8.8 (8.4-10.2) mg/dL Total Bilirubin 0.50 (0.1-1.2) mg/dL AST 16 (5-40) units/L ALT 17 (7-56) units/L Alkaline Phosphatase 51 (35-129) units/L NT-Pro-B Natriuret Pep 85301 H (0-450) pg/mL Total Protein 6.2 L (6.3-8.2) g/dL Albumin 3.8 L (3.9-5) g/dL Albumin/Globulin Ratio 1.6 % - EKG Data -: EKG Interpreted by Me (right bundle branch block) EKG shows normal: sinus rhythm, ST-T waves (no stemi) Rate: tachycardia (111) - Radiology Data Radiology results: report reviewed CHEST 1 VIEW 12/17/2021 10:20 AM INDICATION / CLINICAL INFORMATION: Hypoxia. Missed dialysis. COMPARISON: 11/11/21. FINDINGS: SUPPORT DEVICES: None. HEART / MEDIASTINUM: Cardiomegaly is stable. Pulmonary vasculature is normal fo r technique. LUNGS / PLEURA: No significant pulmonary or pleural abnormality. No pneumothorax. ADDITIONAL FINDINGS: Right subclavian/brachiocephalic endoluminal stent graft is unchanged. IMPRESSION: Cardiomegaly without acute pulmonary disease. - Medical Decision Making Room air ABG does not show hypoxia. Very minimal metabolic acidosis noted Patient has now missed 2 sessions of dialysis. Patient has difficulty sleeping and also has noncompliance with CPAP machine. Patient also has been noncompliant with follow-up with a PMD. Patient does not have hypoxia or signs of respiratory acidosis at this time. Patient does have metabolic acidosis and elevated BUN/creatinine and dialysis orders placed by Dr. Contreras market research interviewer. Labs do reveal hyperkalemia - Differential Diagnosis Hypoventilation syndrome, hypoxia, CHF, CO2 retention, COPD Critical Care Time: No Critical care attestation.: If time is entered above; I have spent that time in minutes in the direct care of this critically ill patient, excluding procedure time. ED Disposition Clinical Impression: ESRD needing dialysis, Obesity hypoventilation syndrome, Hyperkalemia Disposition: 09 ADMITTED INPATIENT Is pt being admited?: Yes Condition: Stable Time of Disposition: 13:12
[2021-12-17 11:55] LABS: Basophils # (Auto) 0.1 K/mm3 (0.0-0.1); Basophils % (Auto) 1.7 % (0.0-1.8); Eosinophils # (Auto) 0.1 K/mm3 (0.0-0.4); Eosinophils % (Auto) 1.2 % (0.0-4.3); Hematocrit 33.8 % (35.5-45.6); Lymphocytes # (Auto) 1.7 K/mm3 (1.2-5.4); Lymphocytes % (Auto) 28.2 % (13.4-35.0); Mean Corpuscular HGB Conc 33 % (32-34); Mean Corpuscular Volume 96 fl (84-94); Monocytes # (Auto) 0.5 K/mm3 (0.0-0.8); Platelet Count 117 K/mm3 (140-440); Red Blood Count 3.54 M/mm3 (3.65-5.03); Red Cell Distribution Width 16.7 % (13.2-15.2)
--- NOTE | 2021-12-17 12:22 | History and Physical Report ---
History of Present Illness Chief complaint: I need dialysis and it is hard for me to breathe History of present illness: 46 YO Male with HTN, Obesity Hypoventilation Syndrome, GERD, ESRD on HD(M,W,F), Nicotine Dependence, Systolic CHF (EF40%)presents to ED for evaluation. Pt reports "I need to get dialysis and it is hard to breathe". Patient states that he has experienced shortness of breath, diminished exercise tolerance, orthopnea, paroxysmal nocturnal dyspnea, dyspnea on exertion, dyspnea at rest over the past 2 days with persistent and worsening symptoms over the same timeframe. Patient acknowledges missed dialysis. Patient also acknowledges 5 pound weight gain over the past 3 days. EMS notified and upon arrival the patient was found to be in distress and subsequently transported to [facility] for further care and evaluation of the aforementioned symptoms. The patient was seen and evaluated in the emergency department. All lab and imaging studies reviewed. Patient found to have a pulse oximetry of 80% on room air which is consistent with acute hypoxemic respiratory failure. Patient also found to have clinical symptoms consistent with acute CHF decompensation, fluid overload, as well as end-stage renal disease in need of dialysis. Patient placed on noninvasive positive pressure ventilation in the emergency department with improvement in symptoms. Patient admitted to medical floor due to increased risk of worsening symptoms. Patient initiated on CHF protocol. Nephrology team consulted in ED. Patient denies fever, chills, palpitation, productive cough, skin rash, recent contacts, trauma, unilateral leg swelling, calf pain, individual/family history of DVT/PE/bleeding/blood clotting disorders, or known exposure to COVID-19. Prior admission on 11/11/2021 reviewed. All medication li sted at time of admission has been reconciled. Advanced care planning conducted in ED. Past History Past Medical History: ESRD, GERD, heart failure, hypertension Past Surgical History: Other (Dialysis access) Social history: , smoking Family history: diabetes, hypertension Medications and Allergies Allergies Allergy/AdvReac Type Severity Reaction Status Date / Time Penicillins Allergy Unknown Verified 12/17/21 16:57 Home Medications Medication Instructions Recorded Confirmed Last Taken Type amLODIPine 10 mg PO QDAY #30 tablet 09/04/21 12/17/21 09/14/21 Rx Aspirin [Aspirin BABY CHEW TAB] 81 mg PO DAILY #30 tab.chew 11/13/21 12/17/21 Unknown Rx AtorvaSTATin [Lipitor] 40 mg PO QHS #30 tablet 11/13/21 12/17/21 Unknown Rx Losartan [Cozaar] 100 mg PO QDAY #30 tablet 11/13/21 12/17/21 Unknown Rx Nicotine [Habitrol] 14 mg TD QDAY #30 patch 11/13/21 12/17/21 Unknown Rx Pantoprazole [Protonix TAB] 40 mg PO QDAY #30 tablet 11/13/21 12/17/21 Unknown Rx carvediloL [Coreg] 25 mg PO Q12HR #30 tablet 11/13/21 12/17/21 Unknown Rx rOPINIRole [Requip] 0.25 mg PO BID #60 tablet 11/13/21 12/17/21 Unknown Rx Review of Systems Constitutional: weight gain, weakness, no weight loss, no fever, no chills Ears, nose, mouth and throat: no ear pain, no ear discharge, no tinnitis, no nose pain, no nasal congestion Cardiovascular: orthopnea, shortness of breath, dyspnea on exertion, paroxysmal nocturnal dyspnea, decreased exercise tolerance, no chest pain Respiratory: no cough, no cough with sputum, no excessive sputum, no hemoptysis Gastrointestinal: no abdominal pain, no nausea, no vomiting, no diarrhea, no constipation Genitourinary Male: no hematuria, no flank pain, no discharge, no urinary frequency, no urinary hesitancy Rectal: no pain, no incontinence, no bleeding Musculoskeletal: no neck stiffness, no neck pain, no shooting arm pain, no arm numbness/tingling, no shooting leg pain Integumentary: no rash, no pruritis, no redness, no sores, no wounds Neurological: no transient paralysis, no paralysis, no weakness, no numbness, no tingling Psychiatric: no anxiety, no memory loss, no change in sleep habits, no insomnia, no change in appetite, no change in libido Endocrine: no cold intolerance, no heat intolerance, no polyphagia, no excessive thirst, no polyuria, no nocturia Hematologic/Lymphatic: no easy bruising, no lymphedema Allergic/Immunologic: no urticaria, no allergic rhinitis Exam - Constitutional Vitals: Temp Pulse Resp BP Pulse Ox 97.9 F 78 16 140/93 98 12/17/21 10:16 12/17/21 10:16 12/17/21 10:16 12/17/21 10:16 12/17/21 10:16 General appearance: Present: mild distress, obese - EENT Eyes: Present: PERRL ENT: hearing intact, clear oral mucosa - Neck Neck: Present: supple, normal ROM, masses or JVD - Respiratory Respiratory effort: labored, accessory muscle use Respiratory: bilateral: diminished, rales - Cardiovascular Heart Sounds: Present: S1 & S2. Absent: rub, click - Extremities Extremities: pulses symmetrical Extremity abnormal: edema Peripheral Pulses: within normal limits - Abdominal General gastrointestinal: Present: soft, non-tender, non-distended, normal bowel sounds Male genitourinary: Present: normal - Integumentary Integumentary: Present: clear, warm, dry - Musculoskeletal Musculoskeletal: generalized weakness - Psychiatric Psychiatric: appropriate mood/affect, intact judgment & insight - Neurologic Neurologic: CNII-XII intact, moves all extremities Results - Labs CBC & Chem 7: 12/17/21 10:58 12/17/21 10:58 Labs: Abnormal lab results 12/17/21 12/17/21 Range/Units 10:55 10:58 RBC 3.54 L (3.65-5.03) M/mm3 Hgb 11.0 L (11.8-15.2) gm/dl Hct 33.8 L (35.5-45.6) % MCV 96 H (84-94) fl RDW 16.7 H (13.2-15.2) % Plt Count 117 L (140-440) K/mm3 [place] % (Auto) 9.0 H (0.0-7.3) % ABG pH 7.336 L (7.350-7.450) pH Units ABG HCO3 17.2 L (20.0-26.0) mmol/L ABG Base Excess -7.7 L (-2.0-3.0) mmol/L ABG Hemoglobin 10.8 L (14.0-18.0) gm/dl Oxyhemoglobin 93.6 L (95.0-99.0) % Assessment and Plan - Patient Problems (1) Acute hypoxemic respiratory failure Current Visit: Yes Status: Acute Plan to address problem: Chest x-ray, supplemental oxygen, pulse oximetry, nebulizer therapy, arterial blood gas: Noninvasive positive pressure ventilation as clinically indicated. (2) CHF (congestive heart failure) Current Visit: Yes Status: Acute Qualifiers: Heart failure type: systolic Heart failure chronicity: acute Qualified Code(s): I50.21 - Acute systolic (congestive) heart failure Plan to address problem: CHF protocol: Strict I's/O, monitor urine output every shift, daily weight, afterload reduction, blood pressure control, diuresis, monitor fluid balance, BNP (3) Volume overload Current Visit: No Status: Acute Qualifiers: Hypervolemia type: unspecified Qualified Code(s): E87.70 - Fluid overload, unspecified Plan to address problem: Strict I's/O, monitor fluid balance, diuresis, urgent dialysis. As per renal team. (4) End stage renal disease Current Visit: No Status: Chronic Plan to address problem: Nephrology team consulted in ED. Strict I's/O, avoid nephrotoxic agents, d ialysis as per renal team. (5) GERD (gastroesophageal reflux disease) Current Visit: No Status: Chronic Qualifiers: Esophagitis presence: without esophagitis Qualified Code(s): K21.9 - Gastro-esophageal reflux disease without esophagitis Plan to address problem: PPI therapy, (6) Hyperlipidemia Current Visit: No Status: Chronic Qualifiers: Hyperlipidemia type: mixed hyperlipidemia Qualified Code(s): E78.2 - Mixed hyperlipidemia Plan to address problem: Low-cholesterol diet, statin therapy as clinically indicated, supportive care. (7) Hypertension Current Visit: No Status: Chronic Qualifiers: Hypertension type: primary hypertension Qualified Code(s): I10 - Essential (primary) hypertension Plan to address problem: Monitor blood pressure every shift, continue medical management. (8) DVT prophylaxis Current Visit: Yes Status: Acute Plan to address problem: SCD to bilateral lower extremities while in bed (9) Advance care planning Current Visit: Yes Status: Acute Plan to address problem: Disease education data, care plan discussed, diagnoses discussed, prognosis discussed, patient is full code. Patient acknowledges understanding and agreement with care plan, +30 minutes. (10) Preventative health care Current Visit: Yes Status: Acute Plan to address problem: Patient counseled regarding compliance with outpatient dialysis, adherence to renal diet, adherence to low-sodium diet, balanced diet, meal planning, weight reduction, follow-up with primary care physician as outpatient for all age and risk factor appropriate screening test.
[2021-12-17] MEDS ORDERED: oxyCODONE /ACETAMINOPHEN 5-325MG TAB PO PRN (12:24)
[2021-12-17] MEDS ORDERED: ALBUTEROL 2.5 MG/3 ML NEBU IH PRN (12:24)
[2021-12-17] MEDS ORDERED: ACETAMINOPHEN 325 MG TAB PO PRN (12:24)
[2021-12-17] MEDS ORDERED: ONDANSETRON 4 MG/2 ML INJ IV PRN (12:24)
[2021-12-17] MEDS ORDERED: HYDROmorphone 0.5 MG/0.5 ML INJ IV PRN (12:24)
[2021-12-17 12:34] LABS: Albumin 3.8 g/dL (3.9-5); Calcium 8.8 mg/dL (8.4-10.2)
[2021-12-17] MEDS ORDERED: SODIUM CHLORIDE 0.9% 100 ML IV PRN (16:29)
--- NOTE | 2021-12-17 16:29 | Consultation ---
History of Present Illness - History of Present Illness Thank you for the consultation ! Patient was evaluated today, Assessment and plan; #End-stage kidney disease: Patient will continue to receive hemodialysis treatment 3 times a week on Wednesday and Wednesday, schedule Monitor dialysis related labs/monitor for any access issues Fluid restriction 1200 cc/day high-protein diet #Patient appears to have sleep apnea severe with features of narcolepsy, restless leg syndrome and must follow-up with pulmonary and sleep medicine, as well as primary care physician, during the conversation he was sleeping through several times Needs to lose weight BMI currently 36.3 #Access: Needs to be monitored during dialysis #Hypertension and volume: We will order for hemodialysis and ultrafiltration as tolerated #Electrolyte mild hyperkalemia potassium 5.9 bicarbonate 15, will order for hemodialysis treatment today #Anemia in end-stage kidney disease: No indication for erythropoietin at this time hemoglobin currently 11.0 #Bone mineral disorder and secondary hyperparathyroidism; Monitor phosphorus binders as necessary goal phosphorus less than 5-1/2 #Diet and nutrition: Has been counseled and educated but patient was sleeping through intermittently due to severe sleep apnea and possible narcolepsy #Medication recommendation: Please dose for creatinine clearance less than 15 cc/min If there are any further question in regards to this patient renal care please feel free to reach me at [phone] Author: Michael Contreras M.D.Dialysis record from the outpatient setting show that his last hemoglobin was 11.1 on , potassium was 5 6 November 24, calcium was 8.4, satisfactory PTH elevated at 1657, blood pressure has been in the 1 60-1 80 range systolic, ultrafiltration goal has been between 3 to 4 kg Patient is currently established with Dr. Bear at [facility], [address] [place] [address] Tel; [phone] History of present illness; 46-year-old male who has been admitted here for shortness of breath, also noted to have history of sleep apnea, chronic tobacco abuse, obesity hypoventilation syndrome, restless leg, patient states that he feels very tired during the day and currently does not have a CPAP machine, which he has not used regularly. According to patient his last dialysis treatment was on Wednesday and has not been dialyzed effectively since then, events of this hospitalization has been noted, Dialysis record from the outpatient setting show that his last hemoglobin was 11.1 on 51, potassium was 5 6 November 2, calcium was 8.4, satisfactory PTH elevated at 1657, blood pressure has been in the 1 60-1 80 range systolic, ultr afiltration goal has been between 3 to 4 kg Patient is currently established with Dr. Bear at [facility] Past medical history: End-stage kidney disease Anemia in end-stage kidney disease Secondary hyperparathyroidism Hypertension Restless leg syndrome, sleep apnea, COPD, chronic tobacco abuse Current allergies: Reviewed from the current chart Social history: Reviewed from the current chart Family history: Reviewed from the current chart Review of system: Positive for excessive fatigue daytime somnolence, history of sleep apnea not using CPAP All other review of systems negative Physical examination Vitals: Reviewed General: No acute distress HEENT: Oral mucosa moist no pallor or icterus Neck: Supple without any JVD thyromegaly or nodular mass Chest: Clear to auscultation Heart: Regular rate and rhythm S1-S2 heard no S3-S4 Abdomen: Soft nontender, bowel sounds present no renal bruit no suprapubic masses no CVA tenderness noted Extremity: Minimal edema dry skin no peripheral cyanosis Endocrine: Thyroid not enlarged Psychiatric: No agitation and aggression noted Musculoskeletal: No joint effusion noted Labs and x-rays: Reviewed from this admission Medications and Allergies Allergies Allergy/AdvReac Type Severity Reaction Status Date / Time Penicillins Allergy Unknown Verified 12/17/21 16:57 Home Medications Medication Instructions Recorded Confirmed Last Taken Type amLODIPine 10 mg PO QDAY #30 tablet 09/04/21 12/17/21 09/14/21 Rx Aspirin [Aspirin BABY CHEW TAB] 81 mg PO DAILY #30 tab.chew 11/13/21 12/17/21 Unknown Rx AtorvaSTATin [Lipitor] 40 mg PO QHS #30 tablet 11/13/21 12/17/21 Unknown Rx Losartan [Cozaar] 100 mg PO QDAY #30 tablet 11/13/21 12/17/21 Unknown Rx Nicotine [Habitrol] 14 mg TD QDAY #30 patch 11/13/21 12/17/21 Unknown Rx Pantoprazole [Protonix TAB] 40 mg PO QDAY #30 tablet 11/13/21 12/17/21 Unknown Rx carvediloL [Coreg] 25 mg PO Q12HR #30 tablet 11/13/21 12/17/21 Unknown Rx rOPINIRole [Requip] 0.25 mg PO BID #60 tablet 11/13/21 12/17/21 Unknown Rx Active Meds: Active Medications Acetaminophen (Acetaminophen 325 Mg Tab) 650 mg PO Q4H PRN PRN Reason: Pain MILD(1-3)/Fever >100.5/VARGHESE Albuterol (Albuterol 2.5 Mg/3 Ml Nebu) 2.5 mg IH Q4HRT PRN PRN Reason: Shortness Of Breath Hydromorphone HCl (Hydromorphone 0.5 Mg/0.5 Ml Inj) 0.5 mg IV Q13H PRN PRN Reason: Pain , Severe (7-10) Ondansetron HCl (Ondansetron 4 Mg/2 Ml Inj) 4 mg IV Q8H PRN PRN Reason: Nausea And Vomiting Oxycodone/Acetaminophen (Oxycodone /Acetaminophen 5-325mg Tab) 1 tab PO Q6H PRN PRN Reason: Pain, Moderate (4-6) Sodium Chloride (Sodium Chloride 0.9% 10 Ml Flush Syringe) 10 ml IV BID CORINNE Sodium Chloride (Sodium Chloride 0.9% 10 Ml Flush Syringe) 10 ml IV PRN PRN PRN Reason: LINE FLUSH Exam - Vital Signs Vital signs: Vital Signs Temp Pulse Resp BP Pulse Ox 97.9 F 78 16 140/93 98 12/17/21 10:16 12/17/21 10:16 12/17/21 10:16 12/17/21 10:16 12/17/21 10:16 Results - Lab Results 12/17/21 10:58 12/17/21 10:58 Most recent lab results ABG pH 7.336 pH Units (7.350-7.450) L 12/17/21 10:55 ABG pCO2 32.9 mm Hg 12/17/21 10:55 ABG pO2 84.6 mm Hg (80.0-90.0) 12/17/21 10:55 ABG HCO3 17.2 mmol/L (20.0-26.0) L 12/17/21 10:55 ABG O2 Saturation 96.3 % (95.0-99.0) 12/17/21 10:55 Calcium 8.8 mg/dL (8.4-10.2) 12/17/21 10:58
[2021-12-17 19:15] LABS: Hepatitis B Surface Antigen Non-Reactive (Negative); Hepatitis C Virus Antibody Non-Reactive (NonReactive)
[2021-12-17] MEDS: rOPINIRole 0.25 MG TAB PO SCH (23:55)
[2021-12-17] MEDS: carvediloL 25 MG TAB PO SCH (23:55)
--- NOTE | 2021-12-18 08:17 | Progress Note ---
Subjective Interval history: Patient was seen today for follow-up of multiple renal related issues Has had hemodialysis treatment yesterday events of 24 hours vitals labs intake output medications were reviewed Past medical history: Reviewed Family history: Reviewed Social history: Reviewed Allergies: Reviewed Physical examination: Vitals: Reviewed HEENT: No pallor or icterus oral mucosa moist Neck: Supple no JVD no thyromegaly Chest: Bilateral clear to auscultation anteriorly Heart: Regular rate and rhythm S1-S2 heard no S3-S4 Abdomen: Soft nontender no voluntary guarding rigidity rebound Extremity: Dry skin less than 1+ peripheral edema Psychiatric: No evidence of agitation and aggression noted Dermatology: No petechial rashes Labs and x-rays: Reviewed from today Assessment and plan #End-stage kidney disease: Patient will continue to see hemodialysis treatment 3 times a week Monitor dialysis related labs/monitor for any access issues He is currently followed by Dr. Bear at [facility] and does dialyze Wednesday and Wednesday Fluid restriction 1200 cc/day high-protein diet #Clinically appears to have severe sleep apnea as well as narcolepsy, Patient does need to see pulmonary, and possibly neurology as well Noted to be sleeping during conversation, yesterday, #Access: Needs to be monitored during dialysis, currently no issues reported #Hypertension and volume: To monitor and follow avoid hypotension tachycardia during dialysis ultrafiltration goals can be adjusted if needed dialysis nurse to monitor hemodynamics closely #Anemia in end-stage kidney disease: To monitor and follow erythropoietin linda odically goal hemoglobin between 10--07/27 #Bone mineral disorder and secondary hyperparathyroidism Periodically check labs, #Consider high-protein diet, dietitian to follow 1.5 g protein per KG body weight #Dialysis related labs: Reviewed will order periodically and follow We'll continue to follow and make recommendation for renal standpoint Objective - Vital Signs Vital signs: Vital Signs - 12hr 12/17/21 12/17/21 12/17/21 20:30 20:45 21:00 Temperature Pulse Rate 90 78 91 H Respiratory Rate Blood Pressure 191/117 161/98 187/105 Blood Pressure [Left] O2 Sat by Pulse Oximetry O2 Sat by Pulse Oximetry [ Anterior Bilateral Throughout] 12/17/21 12/17/21 12/17/21 21:15 21:30 21:45 Temperature Pulse Rate 79 87 82 Respiratory Rate Blood Pressure 182/107 182/101 160/103 Blood Pressure [Left] O2 Sat by Pulse Oximetry O2 Sat by Pulse Oximetry [ Anterior Bilateral Throughout] 12/17/21 12/17/21 12/17/21 22:00 23:20 23:53 Temperature 97.9 F 98.4 F Pulse Rate 89 89 Respiratory 20 18 Rate Blood Pressure 178/102 Blood Pressure 158/107 [Left] O2 Sat by Pulse 0 L 98 Oximetry O2 Sat by Pulse 97 Oximetry [ Anterior Bilateral Throughout] 12/17/21 12/18/21 23:55 01:54 Temperature Pulse Rate 89 Respiratory Rate Blood Pressure 158/107 Blood Pressure [Left] O2 Sat by Pulse 97 Oximetry O2 Sat by Pulse Oximetry [ Anterior Bilateral Throughout] - Lab 12/17/21 10:58 12/17/21 10:58 Most recent lab results ABG pH 7.336 pH Units (7.350-7.450) L 12/17/21 10:55 ABG pCO2 32.9 mm Hg 12/17/21 10:55 ABG pO2 84.6 mm Hg (80.0-90.0) 12/17/21 10:55 ABG HCO3 17.2 mmol/L (20.0-26.0) L 12/17/21 10:55 ABG O2 Saturation 96.3 % (95.0-99.0) 12/17/21 10:55 Calcium 8.8 mg/dL (8.4-10.2) 12/17/21 10:58 Medications & Allergies - Medications Allergies/Adverse Reactions: Allergies Penicillins Allergy (Verified 12/17/21 16:57) Unknown Home Medications: Home Medications Medication Instructions Recorded Confirmed Last Taken Type amLODIPine 10 mg PO QDAY #30 tablet 09/04/21 12/17/21 09/14/21 Rx Aspirin [Aspirin BABY CHEW TAB] 81 mg PO DAILY #30 tab.chew 11/13/21 12/17/21 Unknown Rx AtorvaSTATin [Lipitor] 40 mg PO QHS #30 tablet 11/13/21 12/17/21 Unknown Rx Losartan [Cozaar] 100 mg PO QDAY #30 tablet 11/13/21 12/17/21 Unknown Rx Nicotine [Habitrol] 14 mg TD QDAY #30 patch 11/13/21 12/17/21 Unknown Rx Pantoprazole [Protonix TAB] 40 mg PO QDAY #30 tablet 11/13/21 12/17/21 Unknown Rx carvediloL [Coreg] 25 mg PO Q12HR #30 tablet 11/13/21 12/17/21 Unknown Rx rOPINIRole [Requip] 0.25 mg PO BID #60 tablet 11/13/21 12/17/21 Unknown Rx Active Medications: Generic Name Dose Route Start Last Admin Trade Name Freq PRN Reason Stop Dose Admin Acetaminophen 650 mg 12/17/21 12:24 Acetaminophen 325 Mg Tab PO Q4H PRN Pain MILD(1-3)/Fever >100.5/VARGHESE Albuterol 2.5 mg 12/17/21 12:24 Albuterol 2.5 Mg/3 Ml Nebu IH Q4HRT PRN Shortness Of Breath Amlodipine Besylate 10 mg 12/18/21 10:00 Amlodipine 10 Mg Tab PO QDAY [facility] Aspirin 81 mg 12/18/21 10:00 Aspirin 81 Mg Tab Chew PO DAILY [facility] Atorvastatin Calcium 40 mg 12/17/21 22:00 12/17/21 23:55 Atorvastatin 40 Mg Tab PO 40 mg QHS [facility] Administration Carvedilol 25 mg 12/17/21 22:00 12/17/21 23:55 Carvedilol 25 Mg Tab PO 25 mg Q12HR [facility] Administration Hydromorphone HCl 0.5 mg 12/17/21 12:24 Hydromorphone 0.5 Mg/0.5 Ml Inj IV Q13H PRN Pain , Severe (7-10) Sodium Chloride 100 mls @ 999 mls/hr 12/17/21 16:29 Nacl 0.9% IV MIKO PRN Hypotension Losartan Potassium 100 mg 12/18/21 10:00 Losartan 50 Mg Tab PO QDAY [facility] Nicotine 14 mg 12/18/21 10:00 Nicotine 14 Mg/24 Hr Patch TD QDAY [facility] Ondansetron HCl 4 mg 12/17/21 12:24 Ondansetron 4 Mg/2 Ml Inj IV Q8H PRN Nausea And Vomiting Oxycodone/Acetaminophen 1 tab 12/17/21 12:24 Oxycodone /Acetaminophen 5-325mg Tab PO Q6H PRN Pain, Moderate (4-6) Pantoprazole Sodium 40 mg 12/18/21 10:00 Pantoprazole 40 Mg Tab PO QDAY [facility] Ropinirole HCl 0.25 mg 12/17/21 22:00 12/17/21 23:55 Ropinirole 0.25 Mg Tab PO 0.25 mg BID CORINNE Administration Sodium Chloride 10 ml 12/17/21 22:00 12/17/21 23:56 Sodium Chloride 0.9% 10 Ml Flush Syringe IV 10 ml BID CORINNE Administration Sodium Chloride 10 ml 12/17/21 12:24 Sodium Chloride 0.9% 10 Ml Flush Syringe IV PRN PRN LINE FLUSH
--- NOTE | 2021-12-18 09:43 | Progress Note ---
Assessment and Plan Assessment and plan: 46 YO Male with HTN, Obesity Hypoventilation Syndrome, GERD, ESRD on HD(M,W,F), Nicotine Dependence, Systolic CHF (EF40%)presents to ED for evaluation of shortness of breath, diminished exercise tolerance, orthopnea, paroxysmal nocturnal dyspnea, dyspnea on exertion, dyspnea at rest over the past 2 days with persistent and worsening symptoms over the same timeframe. Patient acknowledged missing dialysis. Patient also acknowledged 5 pound weight gain over the past 3 days [employer]. EMS notified and upon arrival the patient was found to be in distress and subsequently transported to [facility] for further care and evaluation of the aforementioned symptoms. The patient was seen and evaluated in the emergency department. All lab and imaging studies reviewed. Patient found to have a pulse oximetry of 80% on room air which is consistent with acute hypoxemic respiratory failure. Patient also found to have clinical symptoms consistent with acute CHF decompensation, fluid overload, as well as end-stage r enal disease in need of dialysis. Patient placed on noninvasive positive pressure ventilation in the emergency department with improvement in symptoms. Patient admitted to medical floor due to increased risk of worsening symptoms. Patient initiated on CHF protocol. Nephrology team consulted in ED. Acute hypoxic respiratory failure Acute on chronic systolic heart failure ESRD Hyperkalemia Volume overload GERD Hyperlipidemia Hypertension 12/18/2021. Patient received hemodialysis shortly after admission yesterday. Patient will continue hemodialysis treatment 3 times a week. Monitor dialysis related labs/monitor for any access issues. He is currently followed by Dr. Bear at [facility] and does dialyze Wednesday and Wednesday. Fluid restriction 1200 cc/day high-protein diet History Interval history: No new issues overnight Hospitalist Physical - Constitutional Vitals: Temp Pulse Resp BP Pulse Ox 98.4 F 89 18 158/107 97 12/17/21 23:53 12/17/21 23:55 12/17/21 23:53 12/17/21 23:55 12/18/21 01:54 General appearance: Present: no acute distress, obese - EENT Eyes: Present: PERRL, EOM intact ENT: hearing intact, clear oral mucosa, dentition normal - Neck Neck: Present: supple, normal ROM - Respiratory Respiratory effort: normal Respiratory: bilateral: CTA - Cardiovascular Rhythm: regular Heart Sounds: Present: S1 & S2. Absent: gallop, rub - Extremities Extremities: no ischemia, No edema, Full ROM - Abdominal General gastrointestinal: soft, non-tender, non-distended, normal bowel sounds - Integumentary Integumentary: Present: clear, warm, dry - Neurologic Neurologic: CNII-XII intact, moves all extremities Results - Labs CBC & Chem 7: 12/17/21 10:58 12/17/21 10:58 Labs: Laboratory Last Values WBC 5.9 K/mm3 (4.5-11.0) 12/17/21 10:58 RBC 3.54 M/mm3 (3.65-5.03) L 12/17/21 10:58 Hgb 11.0 gm/dl (11.8-15.2) L 12/17/21 10:58 Hct 33.8 % (35.5-45.6) L 12/17/21 10:58 MCV 96 fl (84-94) H 12/17/21 10:58 MCH 31 pg (28-32) 12/17/21 10:58 MCHC 33 % (32-34) 12/17/21 10:58 RDW 16.7 % (13.2-15.2) H 12/17/21 10:58 Plt Count 117 K/mm3 (140-440) L 12/17/21 10:58 Lymph % (Auto) 28.2 % (13.4-35.0) 12/17/21 10:58 Pershing % (Auto) 9.0 % (0.0-7.3) H 12/17/21 10:58 Eos % (Auto) 1.2 % (0.0-4.3) 12/17/21 10:58 Baso % (Auto) 1.7 % (0.0-1.8) 12/17/21 10:58 Lymph # (Auto) 1.7 K/mm3 (1.2-5.4) 12/17/21 10:58 Pershing # (Auto) 0.5 K/mm3 (0.0-0.8) 12/17/21 10:58 Eos # (Auto) 0.1 K/mm3 (0.0-0.4) 12/17/21 10:58 Baso # (Auto) 0.1 K/mm3 (0.0-0.1) 12/17/21 10:58 Seg Neutrophils % 59.9 % (40.0-70.0) 12/17/21 10:58 Seg Neutrophils # 3.5 K/mm3 (1.8-7.7) 12/17/21 10:58 ABG pH 7.336 pH Units (7.350-7.450) L 12/17/21 10:55 ABG pCO2 32.9 mm Hg 12/17/21 10:55 ABG pO2 84.6 mm Hg (80.0-90.0) 12/17/21 10:55 ABG HCO3 17.2 mmol/L (20.0-26.0) L 12/17/21 10:55 ABG O2 Saturation 96.3 % (95.0-99.0) 12/17/21 10:55 ABG O2 Content 14.3 (0.0-44) 12/17/21 10:55 ABG Base Excess -7.7 mmol/L (-2.0-3.0) L 12/17/21 10:55 ABG Hemoglobin 10.8 gm/dl (14.0-18.0) L 12/17/21 10:55 ABG Carboxyhemoglobin 2.4 % (0.0-5.0) 12/17/21 10:55 ABG Methemoglobin 0.5 % (0.0-1.5) 12/17/21 10:55 Oxyhemoglobin 93.6 % (95.0-99.0) L 12/17/21 10:55 FiO2 21 % 12/17/21 10:55 Sodium 137 mmol/L (137-145) 12/17/21 10:58 Potassium 5.9 mmol/L (3.6-5.0) H 12/17/21 10:58 Chloride 102.3 mmol/L (98-107) 12/17/21 10:58 Carbon Dioxide 15 mmol/L (22-30) L 12/17/21 10:58 Anion Gap 26 mmol/L 12/17/21 10:58 BUN 73 mg/dL (9-20) H 12/17/21 10:58 Creatinine 15.2 mg/dL (0.8-1.3) H 12/17/21 10:58 Estimated GFR 4 ml/min 12/17/21 10:58 BUN/Creatinine Ratio 5 % 12/17/21 10:58 Glucose 92 mg/dL (75-100) 12/17/21 10:58 Calcium 8.8 mg/dL (8.4-10.2) 12/17/21 10:58 Total Bilirubin 0.50 mg/dL (0.1-1.2) 12/17/21 10:58 AST 16 units/L (5-40) 12/17/21 10:58 ALT 17 units/L (7-56) 12/17/21 10:58 Alkaline Phosphatase 51 units/L (35-129) 12/17/21 10:58 NT-Pro-B Natriuret Pep 81838 pg/mL (0-450) H 12/17/21 10:58 Total Protein 6.2 g/dL (6.3-8.2) L 12/17/21 10:58 Albumin 3.8 g/dL (3.9-5) L 12/17/21 10:58 Albumin/Globulin Ratio 1.6 % 12/17/21 10:58 Hepatitis A IgM Ab Non-reactive (NonReactive) 12/17/21 18:35 Hep Bs Antigen Non-reactive (Negative) 12/17/21 18:35 Hep B Core IgM Ab Non-reactive (NonReactive) 12/17/21 18:35 Hepatitis C Antibody Non-reactive (NonReactive) 12/17/21 18:35 [place]/IV: Voiding Method Toilet Active Medications - Current Medications Current Medications: Generic Name Dose Route Start Last Admin Trade Name Freq PRN Reason Stop Dose Admin Acetaminophen 650 mg 12/17/21 12:24 Acetaminophen 325 Mg Tab PO Q4H PRN Pain MILD(1-3)/Fever >100.5/VARGHESE Albuterol 2.5 mg 12/17/21 12:24 Albuterol 2.5 Mg/3 Ml Nebu IH Q4HRT PRN Shortness Of Breath Amlodipine Besylate 10 mg 12/18/21 10:00 Amlodipine 10 Mg Tab PO QDAY [facility] Aspirin 81 mg 12/18/21 10:00 Aspirin 81 Mg Tab Chew PO DAILY [facility] Atorvastatin Calcium 40 mg 12/17/21 22:00 12/17/21 23:55 Atorvastatin 40 Mg Tab PO 40 mg QHS [facility] Administration Carvedilol 25 mg 12/17/21 22:00 12/17/21 23:55 Carvedilol 25 Mg Tab PO 25 mg Q12HR CORINNE Administration Hydromorphone HCl 0.5 mg 12/17/21 12:24 Hydromorphone 0.5 Mg/0.5 Ml Inj IV Q13H PRN Pain , Severe (7-10) Sodium Chloride 100 mls @ 999 mls/hr 12/17/21 16:29 Nacl 0.9% IV MIKO PRN Hypotension Losartan Potassium 100 mg 12/18/21 10:00 Losartan 50 Mg Tab PO QDAY CORINNE Nicotine 14 mg 12/18/21 10:00 Nicotine 14 Mg/24 Hr Patch TD QDAY CORINNE Ondansetron HCl 4 mg 12/17/21 12:24 Ondansetron 4 Mg/2 Ml Inj IV Q8H PRN Nausea And Vomiting Oxycodone/Acetaminophen 1 tab 12/17/21 12:24 Oxycodone /Acetaminophen 5-325mg Tab PO Q6H PRN Pain, Moderate (4-6) Pantoprazole Sodium 40 mg 12/18/21 10:00 Pantoprazole 40 Mg Tab PO QDAY CORINNE Ropinirole HCl 0.25 mg 12/17/21 22:00 12/17/21 23:55 Ropinirole 0.25 Mg Tab PO 0.25 mg BID CORINNE Administration Sodium Chloride 10 ml 12/17/21 22:00 12/17/21 23:56 Sodium Chloride 0.9% 10 Ml Flush Syringe IV 10 ml BID CORINNE Administration Sodium Chloride 10 ml 12/17/21 12:24 Sodium Chloride 0.9% 10 Ml Flush Syringe IV PRN PRN LINE FLUSH
[2021-12-18] MEDS ORDERED: ASPIRIN 81 MG TAB CHEW PO SCH (10:00)
[2021-12-18] MEDS ORDERED: LOSARTAN 50 MG TAB PO SCH (10:00)
[2021-12-18] MEDS ORDERED: NICOTINE 14 MG/24 HR PATCH TD SCH (10:00)
[2021-12-18] MEDS ORDERED: PANTOPRAZOLE 40 MG TAB PO SCH (10:00)
[2021-12-18] MEDS ORDERED: amLODIPine 10 MG TAB PO SCH (10:00)
[2021-12-18] MEDS: carvediloL 25 MG TAB PO SCH (10:15)
[2021-12-18] MEDS: rOPINIRole 0.25 MG TAB PO SCH (10:49)
[2021-12-18 11:05] VITALS: BP 136/92
--- NOTE | 2021-12-19 09:50 | Discharge Summary ---
Providers - Providers Date of Admission: 12/17/21 12:24 Date of discharge: 12/19/21 Attending physician: NITA MOORE 12/17/21 11:57 Consult to Physician [CONS] Urgent Comment: Consulting Provider: TRACEY HOLLAND Physician Instructions: Reason For Exam: esrd needing dialysis Primary care physician: MEDHAT CHEN Hospitalization Reason for admission: SOB Condition: Stable Hospital course: 46 YO Male with HTN, Obesity Hypoventilation Syndrome, GERD, ESRD on HD(M,W,F), Nicotine Dependence, Systolic CHF (EF40%)presents to ED for evaluation of shortness of breath, diminished exercise tolerance, orthopnea, paroxysmal nocturnal dyspnea, dyspnea on exertion, dyspnea at rest over the past 2 days with persistent and worsening symptoms over the same timeframe. Patient acknowledged missing dialysis. Patient also acknowledged 5 pound weight gain over the past 3 days [employer]. EMS notified and upon arrival the patient was found to be in distress and subsequently transported to [facility] for further care and evaluation of the aforementioned symptoms. The patient was seen and evaluated in the emergency department. All lab and imaging studies reviewed. Patient found to have a pulse oximetry of 80% on room air which is consistent with acute hypoxemic respiratory failure. Patient also found to have clinical symptoms consistent with acute CHF decompensation, fluid overload, as well as end-stage renal disease in need of dialysis. Patient placed on noninvasive positive pressure ventilation in the emergency department with improvement in symptoms. Patient admitted to medical floor due to increased risk of worsening symptoms. Patient initiated on CHF protocol. Nephrology team consulted in ED. Admitted with dx Acute hypoxic respiratory failure Acute on chronic systolic heart failure ESRD Hyperkalemia Volume overload GERD Hyperlipidemia Hypertension 12/18/2021. Patient received hemodialysis shortly after admission yesterday. Patient will continue hemodialysis treatment 3 times a week. Monitor dialysis related labs/monitor for any access issues. He is currently followed by Dr[facility] and does dialyze Wednesday and Wednesday. Fluid restriction 1200 cc/day high-protein diet. Patient reportedly was scheduled for follow-up hemodialysis but left AMA at 18:25, stating he wants to go for dialysis at his center at 6am tomorrow Disposition: 07 LEFT AGAINST MEDICAL ADVICE Final Discharge Diagnosis (Prints w/discharge instructions): Acute hypoxic respiratory failure. Acute on chronic systolic heart failure. ESRD. Hyperkalemia. Volume overload. GERD. Hyperlipidemia. Hypertension Core Measure Documentation - Palliative Care Palliative Care/ Comfort Measures: Not Applicable - Core Measures Any of the following diagnoses?: none Exam - Constitutional Vitals: Temp Pulse Resp BP Pulse Ox 98.4 F 83 18 136/92 98 12/17/21 23:53 12/18/21 10:15 12/17/21 23:53 12/18/21 10:15 12/18/21 13:00 Plan Follow up with: MEDHAT CHEN MD [Primary Care Provider] - 3-5 Days
--- NOTE | 2021-12-19 10:07 | Electrocardiograph Report ---
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
== END 2021-12-18 18:25 | disposition left against medical advice (07) | DRG 291 ==
LOC: ED 09:47 → 3A 12:24
PROVIDERS: ADMIT Internal Medicine; ATTEND Hospitalist
PROC: 4A033R1 Measurement of Arterial Saturation, Peripheral, Percutaneous Approach (ICD-10-PCS; principal; 2021-12-17)
PROC: 5A1D70Z Performance of Urinary Filtration, Intermittent, Less than 6 Hours Per Day (ICD-10-PCS; 2021-12-17)
DX: I13.2 Hypertensive heart and chronic kidney disease with heart failure and with stage 5 chronic kidney disease, or end stage renal disease (principal); N18.6 End stage renal disease; J96.01 Acute respiratory failure with hypoxia; I50.23 Acute on chronic systolic (congestive) heart failure; E66.2 Morbid (severe) obesity with alveolar hypoventilation; E87.70 Fluid overload, unspecified; K21.9 Gastro-esophageal reflux disease without esophagitis; E87.5 Hyperkalemia; E78.2 Mixed hyperlipidemia; D63.1 Anemia in chronic kidney disease; F17.200 Nicotine dependence, unspecified, uncomplicated; Z91.19 Patient's noncompliance with other medical treatment and regimen; Z83.3 Family history of diabetes mellitus; Z82.49 Family history of ischemic heart disease and other diseases of the circulatory system
CPT/HCPCS: 36415; 36600; 71045; 80053; 80074; 82803; 83880; 85025; 85027; 87641; 93005; 94640; 94760; G0378

== ENCOUNTER 2021-12-22 09:13 | Emergency (ER) | payer MEDICARE ==
--- NOTE | 2021-12-22 14:47 | Emergency Department Report ---
ED Medical Clearance HPI - General Chief complaint: Medical Clearance Stated complaint: MEDICAL CLEARENCE Time Seen by Provider: 12/22/21 14:45 Source: patient Mode of arrival: Ambulatory - History of Present Illness Initial comments: pt reports he was advised he must come to ED to get medical clearance before he can get dialysis due to missing dialysis Wednesday. Complaint: medical clearance request Alledged Intoxication: No Compliant with Home Medications: No Associated Symptoms: denies: chest pain, shortness of breath, palpitations, diaphoresis, cough, fever/chills, headaches, anorexia Home medications: Previous Rx's Medication Instructions Recorded Last Taken Type amLODIPine 10 mg PO QDAY #30 tablet 09/04/21 09/14/21 Rx Aspirin [Aspirin BABY CHEW TAB] 81 mg PO DAILY #30 tab.chew 11/13/21 Unknown Rx AtorvaSTATin [Lipitor] 40 mg PO QHS #30 tablet 11/13/21 Unknown Rx Losartan [Cozaar] 100 mg PO QDAY #30 tablet 11/13/21 Unknown Rx Nicotine [Habitrol] 14 mg TD QDAY #30 patch 11/13/21 Unknown Rx Pantoprazole [Protonix TAB] 40 mg PO QDAY #30 tablet 11/13/21 Unknown Rx carvediloL [Coreg] 25 mg PO Q12HR #30 tablet 11/13/21 Unknown Rx rOPINIRole [Requip] 0.25 mg PO BID #60 tablet 11/13/21 Unknown Rx Allergies/Adverse reactions: Allergies Allergy/AdvReac Type Severity Reaction Status Date / Time Penicillins Allergy Unknown Verified 12/17/21 16:57 ED Review of Systems ROS: Stated complaint: MEDICAL CLEARENCE Other details as noted in HPI Constitutional: denies: chills, fever Eyes: denies: eye pain, eye discharge, vision change ENT: denies: ear pain, throat pain Respiratory: denies: cough, shortness of breath, wheezing Cardiovascular: denies: chest pain, palpitations Endocrine: no symptoms reported Gastrointestinal: denies: abdominal pain, nausea, diarrhea Genitourinary: denies: urgency, dysuria Musculoskeletal: denies: back pain, joint swelling, arthralgia Skin: denies: rash, lesions Neurological: denies: headache, weakness, paresthesias Psychiatric: denies: anxiety, depression Hematological/Lymphatic: denies: easy bleeding, easy bruising ED Past Medical Hx - Past Medical History Hx Hypertension: Yes Hx Heart Attack/AMI: No Hx Congestive Heart Failure: Yes Hx Deep Vein Thrombosis: No Hx GERD: No Hx Liver Disease: No Hx Renal Disease: Yes Hx Kidney Stones: No Hx COPD: Yes Hx HIV: No Additional medical history: Permacath Left Chest, dialysis MWF - Surgical History Hx Coronary Stent: No Additional Surgical History: Permacath-removed. Right upper extremity fistula - Social History Smoking Status: Never Smoker - Medications Home Medications: Home Medications Medication Instructions Recorded Confirmed Last Taken Type amLODIPine 10 mg PO QDAY #30 tablet 09/04/21 12/17/21 09/14/21 Rx Aspirin [Aspirin BABY CHEW TAB] 81 mg PO DAILY #30 tab.chew 11/13/21 12/17/21 Unknown Rx AtorvaSTATin [Lipitor] 40 mg PO QHS #30 tablet 11/13/21 12/17/21 Unknown Rx Losartan [Cozaar] 100 mg PO QDAY #30 tablet 11/13/21 12/17/21 Unknown Rx Nicotine [Habitrol] 14 mg TD QDAY #30 patch 11/13/21 12/17/21 Unknown Rx Pantoprazole [Protonix TAB] 40 mg PO QDAY #30 tablet 11/13/21 12/17/21 Unknown Rx carvediloL [Coreg] 25 mg PO Q12HR #30 tablet 11/13/21 12/17/21 Unknown Rx rOPINIRole [Requip] 0.25 mg PO BID #60 tablet 11/13/21 12/17/21 Unknown Rx ED Physical Exam - General Limitations: No Limitations General appearance: alert, in no apparent distress - Head Head exam: Present: atraumatic, normocephalic - Eye Eye exam: Present: normal appearance - ENT ENT exam: Present: mucous membranes moist - Neck Neck exam: Present: normal inspection - Respiratory Respiratory exam: Present: normal lung sounds bilaterally. Absent: respiratory distress - Cardiovascular Cardiovascular Exam: Present: regular rate, normal rhythm. Absent: systolic murmur, diastolic murmur, rubs, gallop - GI/Abdominal GI/Abdominal exam: Present: soft, normal bowel sounds - Rectal Rectal exam: Present: deferred - Extremities Exam Extremities exam: Present: normal inspection - Back Exam Back exam: Present: normal inspection - Neurological Exam Neurological exam: Present: alert, oriented X3 - Psychiatric Psychiatric exam: Present: normal affect, normal mood - Skin Skin exam: Present: warm, dry, intact, normal color. Absent: rash ED Course Vital Signs 12/22/21 10:25 Temperature 97.9 F Pulse Rate 86 Respiratory 24 Rate Blood Pressure 167/89 O2 Sat by Pulse 96 Oximetry ED Medical Decision Making - Medical Decision Making vss , nurse conated patient for dialysis tomorrow am, no SOB no symptoms , tp refused blood work and wants to go home no complaints ED Disposition Clinical Impression: Renal failure Disposition: HOME / SELF CARE / HOMELESS Is pt being admited?: No Does the pt Need Aspirin: No Condition: Stable Instructions: Uremia
[2021-12-22 14:58] VITALS: BP 148/90
== END 2021-12-22 14:46 | disposition home or self-care (01) ==
LOC: ED 09:13
DX: N17.9 Acute kidney failure, unspecified (principal); I13.0 Hypertensive heart and chronic kidney disease with heart failure and stage 1 through stage 4 chronic kidney disease, or unspecified chronic kidney disease; N18.9 Chronic kidney disease, unspecified; I50.9 Heart failure, unspecified; J44.9 Chronic obstructive pulmonary disease, unspecified; Z98.890 Other specified postprocedural states; Z88.0 Allergy status to penicillin
CPT/HCPCS: 99282